=== PATIENT | male | born 2000 | race Caucasian/White ===

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

== ENCOUNTER 2019-01-09 22:40 | Emergency (ER) | payer MEDICAID ==
[~2019-01-09] VITALS: Ht 170.2 cm; Wt 113.4 kg
[~2019-01-09 22:40] MED LIST: BENZ2TAB6; DEXM30CP; DIPH25CA45; DIPH50CA30; GUAN1TAB21; ILOP12TA2; OXCA600T10; PANT20TA3; PERP8TAB6; [UNRECOGNIZED DRUG - CODE]
--- OUTSIDE RECORDS SUMMARY | 2019-01-09 22:45 | XMS REPORT ---
Author Author LIO HANSEN [facility] Address [address] [place] [address] Care Team Providers [facility] Manager Name Role Phone LIO HANSEN Unavailable PROBLEMS Type Condition ICD9-CM Code PGB16-IQ Code Onset Dates Condition Status SNOMED Code Problem Urinary incontinence, unspecified type R32 Active 682320096 Problem Chronic GERD K21.9 Active 680630161 Problem Chronic seasonal allergic rhinitis, unspecified trigger J30.2 Active 840752951 Problem Autism spectrum disorder F84.0 Active 51002889 Problem ADHD (attention deficit hyperactivity disorder), combined type F90.2 Active 02140599 Problem Borderline personality disorder F60.3 Active 53145716 Problem Bipolar disorder, in partial remission, most recent episode manic F31.73 Active 36787678 Problem Chronic idiopathic constipation K59.04 Active 60794237 Problem Other chronic pain G89.29 Active 38708026 Problem Acne vulgaris L70.0 Active 60817386 Problem Body mass index (BMI) of 32.0-32.9 in adult Z68.32 Active 192924995 Problem Psychosis, unspecified psychosis type F29 Active 88929047 Problem Other obesity due to excess calories E66.09 Active 365380689 ALLERGIES No Information ENCOUNTERS Encounter Location Date Diagnosis [facility] [id number] [address] Sep, [facility] [id number] [address] Aug, [facility] [id number] [place] [address] Jun, ADHD (attention deficit hyperactivity disorder), combined type F90.2 [facility] [id number] [address] Jun, [facility] [address] [address] May, ADHD (attention deficit hyperactivity disorder), combined type F90.2 [address] [id number] [place] [address] May, ADHD (attention deficit hyperactivity disorder), combined type F90.2 [place] [id number] [place] [address] Apr, ADHD (attention deficit hyperactivity disorder), combined type F90.2 [place] [id number] [place] [address] Apr, [place] [id number] [place] [address] Apr, Chronic idiopathic constipation K59.04 [place] [id number] [place] [address] Apr, [address] [address] Apr, [address] [id number] [id number] Apr, Dorsalgia, unspecified M54.9 and Other chronic pain G89.29 [place] [address] [place] [address] Apr, Acne vulgaris L70.0 ; Chronic constipation K59.09 ; Kyphosis of cervicothoracic region, 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 ; Pain of left foot M79.672 and Pain in right foot M79.671 [place] [address] [place] [address] Apr, ADHD (attention deficit hyperactivity disorder), combined type F90.2 ; Borderline personality disorder F60.3 ; Autism spectrum disorder F84.0 and Psychosis, unspecified psychosis type F29 [place] [address] [place] [address] Mar, ADHD (attention deficit hyperactivity disorder), combined type F90.2 [facility] [address] [address] Feb, ADHD (attention deficit hyperactivity disorder), combined type F90.2 [facility] [address] [address] Jan, ADHD (attention deficit hyperactivity disorder), combined type F90.2 ; Bipolar disorder, in partial remission, most recent episode manic F31.73 ; Borderline personality disorder F60.3 and Autism spectrum disorder F84.0 [facility] [address] [place] [address] Jan, Acne vulgaris L70.0 [facility] [id number] [place] [address] Jan, [facility] [id number] [place] [address] Dec, [facility] [address] [address] Dec, [facility] [id number] [place] [id number] Dec, Encounter for dental examination Z01.20 [facility] [address] [address] Dec, ADHD (attention deficit hyperactivity disorder), combined type F90.2 ; Bipolar disorder, in partial remission, most recent episode manic F31.73 ; Borderline personality disorder F60.3 and Autism spectrum disorder F84.0 [facility] [address] [address] November, ADHD (attention deficit hyperactivity disorder), combined type F90.2 [facility] [address] [address] November, [facility] [id number] [place] [address] November, [facility] [address] [address] November, [facility] [id number] [place] [address] Oct, Bipolar disorder, in partial remission, most recent episode manic F31.73 [facility] [id number] [place] [address] Oct, ADHD (attention deficit hyperactivity disorder), combined type F90.2 [facility] [address] [address] Oct, [facility] [id number] [place] [address] Oct, [facility] [id number] [place] [address] Oct, ADHD (attention deficit hyperactivity disorder), combined type F90.2 ; Bipolar disorder, in partial remission, most recent episode manic F31.73 ; Autism spectrum disorder F84.0 ; Borderline personality disorder F60.3 ; Chronic GERD K21.9 ; Chronic seasonal allergic rhinitis, unspecified trigger J30.2 ; Urinary incontinence, unspecified type R32 ; Acne vulgaris L70.0 ; Other obesity due to excess calories E66.09 and Body mass index (BMI) of 32.0-32.9 in adult Z68.32 [facility] [address] [address] Sep, [facility] [address] [address] Sep, Borderline personality disorder F60.3 [facility] [address] [address] Aug, Borderline personality disorder F60.3 [facility] [address] [address] Aug, [facility] [id number] [address] Jul, Borderline personality disorder F60.3 ; Autism spectrum disorder F84.0 ; Bipolar disorder, in partial remission, most recent episode manic F31.73 and ADHD (attention deficit hyperactivity disorder), combined type F90.2 [facility] [address] [id number] [address] Jul, [facility] [address] [id number] [id number] Jul, Dental examination Z01.20 [facility] [address] [id number] [place] [address] Jun, [facility] [id number] [place] [address] May, [facility] [address] [id number] May, Dental examination Z01.20 [facility] [address] [id number] [address] May, [facility] [id number] [place] [address] May, High risk medication use Z79.899 [facility] [id number] [address] May, [facility] [id number] [address] May, [facility] [id number] [address] Apr, High risk medication use Z79.899 ; Borderline personality disorder F60.3 ; Autism spectrum disorder F84.0 ; Bipolar disorder, in partial remission, most recent episode manic F31.73 and ADHD (attention deficit hyperactivity disorder), combined type F90.2 [facility] [address] [facility] [id number] [address] Apr, [facility] [id number] [address] Apr, [facility] [address] [facility] [id number] [address] Apr, Chronic GERD K21.9 ; Chronic seasonal allergic rhinitis, unspecified trigger J30.2 ; Urinary incontinence, unspecified type R32 and Encounter for immunization Z23 [place] [id number] [address] Mar, [address] [facility] [id number] [address] Mar, ADHD (attention deficit hyperactivity disorder), combined type F90.2 ; Bipolar disorder, in partial remission, most recent episode manic F31.73 ; Autism spectrum disorder F84.0 and Borderline personality disorder F60.3 IMMUNIZATIONS No Known Immunizations SOCIAL HISTORY Never Assessed REASON FOR VISIT focalin 2018 PLAN OF CARE VITAL SIGNS MEDICATIONS Medication Instructions Dosage Frequency Start Date End Date Duration Status Focalin 10 MG Orally at 10am and 3pm 1 tablet Jun, 28 days Active Focalin XR 30 MG Orally. NAME BRAND ONLY Once a day in morning 1 capsule Jun, 28 days Active Focalin 5 MG Orally at 3pm 1 tablet Jun, 28 days Active RESULTS No Results PROCEDURES No Known procedures INSTRUCTIONS MEDICATIONS ADMINISTERED No Known Medications MEDICAL (GENERAL) HISTORY Type Description Date Medical History bipolar disorder Medical History attention deficit hyperactivity disorder Medical History Autisim Medical History borderline personality disorder Medical History history of seizures, none since thao high, history of petite grand mal and focal seizures Surgical History hydroseal 1998 Surgical History PE tubes 2002 Surgical History Tonsils and adenoids 2005 Surgical History wisdom teeth 2016 Hospitalization History Multiple psych stays(states 25 times)
--- OUTSIDE RECORDS SUMMARY | 2019-01-09 22:46 | XMS REPORT ---
Author Author INDERJIT CADET Organization [facility] Address [address] [place] [address] Care Team Providers Care Public Health Teacher Name Role Phone INDERJIT CADET Unavailable PROBLEMS Type Condition ICD9-CM Code LRN10-PS Code Onset Dates Condition Status SNOMED Code Problem Urinary incontinence, unspecified type R32 Active 072751782 Problem Chronic GERD K21.9 Active 429889279 Problem Chronic seasonal allergic rhinitis, unspecified trigger J30.2 Active 109438054 Problem Autism spectrum disorder F84.0 Active 78887272 Problem ADHD (attention deficit hyperactivity disorder), combined type F90.2 Active 40667052 Problem Borderline personality disorder F60.3 Active 62138006 Problem Bipolar disorder, in partial remission, most recent episode manic F31.73 Active 16997399 Problem Chronic idiopathic constipation K59.04 Active 24139629 Problem Other chronic pain G89.29 Active 76427178 Problem Acne vulgaris L70.0 Active 02347902 Problem Body mass index (BMI) of 32.0-32.9 in adult Z68.32 Active 821044917 Problem Psychosis, unspecified psychosis type F29 Active 23890882 Problem Other obesity due to excess calories E66.09 Active 025517937 ALLERGIES No Information ENCOUNTERS Encounter Location Date Diagnosis [facility] [id number] [address] Sep, [facility] [id number] [address] Jun, [facility] [id number] [place] [address] May, ADHD (attention deficit hyperactivity disorder), combined type F90.2 [facility] [id number] [address] May, ADHD (attention deficit hyperactivity disorder), combined type F90.2 [facility] [address] [address] Apr, ADHD (attention deficit hyperactivity disorder), combined type F90.2 [facility] [address] [address] Apr, [facility] [address] [address] Apr, Chronic idiopathic constipation K59.04 [facility] [address] [address] Apr, [facility] [address] [address] Apr, [address] [id number] [id number] Apr, Dorsalgia, unspecified M54.9 and Other chronic pain G89.29 [facility] [address], [place] [address] Apr, Acne vulgaris L70.0 ; Chronic constipation K59.09 ; Kyphosis of cervicothoracic region, 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 ; Pain of left foot M79.672 and Pain in right foot M79.671 [facility] [address] [address] Apr, ADHD (attention deficit hyperactivity disorder), combined type F90.2 ; Borderline personality disorder F60.3 ; Autism spectrum disorder F84.0 and Psychosis, unspecified psychosis type F29 [facility] [id number] [address] Mar, ADHD (attention deficit hyperactivity disorder), combined type F90.2 [facility] [address], [place] [address] Feb, ADHD (attention deficit hyperactivity disorder), combined type F90.2 [place] [address] [address] Jan, ADHD (attention deficit hyperactivity disorder), combined type F90.2 ; Bipolar disorder, in partial remission, most recent episode manic F31.73 ; Borderline personality disorder F60.3 and Autism spectrum disorder F84.0 [facility] [address], [place] [address] Jan, Acne vulgaris L70.0 [facility] [id number] [place] [address] Jan, [facility] [id number] [place] [address] Dec, [facility] [id number] [place] [address] Dec, [facility] [address] [place] [id number] Dec, Encounter for dental examination Z01.20 [facility] [address] [place] [address] Dec, ADHD (attention deficit hyperactivity disorder), combined type F90.2 ; Bipolar disorder, in partial remission, most recent episode manic F31.73 ; Borderline personality disorder F60.3 and Autism spectrum disorder F84.0 [facility] [address], [place] [address] November, ADHD (attention deficit hyperactivity disorder), combined type F90.2 [facility] [address] [address] November, [facility] [id number] [address] November, [facility] [id number] [place] [address] November, [facility] [address], [place] [address] Oct, Bipolar disorder, in partial remission, most recent episode manic F31.73 [facility] [address], [place] [address] Oct, ADHD (attention deficit hyperactivity disorder), combined type F90.2 [facility] [address], [place] [address] Oct, [facility] [address], [place] [address] Oct, [facility] [id number] [place] [address] Oct, ADHD (attention deficit hyperactivity disorder), combined [...] index (BMI) of 32.0-32.9 in adult Z68.32 [place], [place] [address] Sep, [place] [id number] [place] [address] Sep, Borderline personality disorder F60.3 [facility] [address], [place] [address] Aug, Borderline personality disorder F60.3 [facility] [address], [place] [address] Aug, [facility] [address] [place] [address] Jul, Borderline personality disorder F60.3 ; Autism spectrum disorder F84.0 ; Bipolar disorder, in partial remission, most recent episode manic F31.73 and ADHD (attention deficit hyperactivity disorder), combined type F90.2 [facility] [address] [place] [address] Jul, [facility] [address] [address] Jul, Dental examination Z01.20 [facility] [address] [address] Jun, [facility] [address], [place] [address] May, [facility] [address] [place] [id number] May, Dental examination Z01.20 [facility] [id number] [place] [address] May, [facility] [id number] [place] [address] May, High risk medication use Z79.899 [facility] [id number] [place] [address] May, [facility] [address], [place] [address] May, [facility] [address] [place] [address] Apr, High risk medication use Z79.899 ; Borderline personality disorder F60.3 ; Autism spectrum disorder F84.0 ; Bipolar disorder, in partial remission, most recent episode manic F31.73 and ADHD (attention deficit hyperactivity disorder), combined type F90.2 [facility] [address] [address] Apr, [facility] [id number] [place] [address] Apr, [facility] [address], [place] [address] Apr, Chronic GERD K21.9 ; Chronic seasonal allergic rhinitis, unspecified trigger J30.2 ; Urinary incontinence, unspecified type R32 and Encounter for immunization Z23 [facility] [address] [facility] [id number] [address] Mar, [facility] [address] [facility] [id number] [place] [address] Mar, ADHD (attention deficit hyperactivity disorder), combined type F90.2 ; Bipolar disorder, in partial remission, most recent episode manic F31.73 ; Autism spectrum disorder F84.0 and Borderline personality disorder F60.3 IMMUNIZATIONS No Known Immunizations SOCIAL HISTORY Never Assessed REASON FOR VISIT Requests return call PLAN OF CARE VITAL SIGNS MEDICATIONS Unknown Medications RESULTS No Results PROCEDURES No Known procedures [...] tubes 2002 Surgical History Tonsils and adenoids 2004 Surgical History wisdom teeth 2016 Hospitalization History Multiple psych stays(states 25 times)
--- OUTSIDE RECORDS SUMMARY | 2019-01-09 22:46 | XMS REPORT ---
Author Author INDERJIT CADET Organization [facility] Address [address] [place] [address] Care Team Providers Care Tourist Cabin Keeper Name Role Phone CADETINDERJIT Unavailable PROBLEMS Type Condition ICD9-CM Code RBL38-RG Code Onset Dates Condition Status SNOMED Code Problem Urinary incontinence, unspecified type R32 Active 144307956 Problem Chronic GERD K21.9 Active 574024730 Problem Chronic seasonal allergic rhinitis, unspecified trigger J30.2 Active 234365742 Problem Autism spectrum disorder F84.0 Active 83991337 Problem ADHD (attention deficit hyperactivity disorder), combined type F90.2 Active 91793690 Problem Borderline personality disorder F60.3 Active 98753289 Problem Bipolar disorder, in partial remission, most recent episode manic F31.73 Active 62243859 Problem Chronic idiopathic constipation K59.04 Active 74906571 Problem Other chronic pain G89.29 Active 96927680 Problem Acne vulgaris L70.0 Active 36396294 Problem Body mass index (BMI) of 32.0-32.9 in adult Z68.32 Active 806070493 Problem Psychosis, unspecified psychosis type F29 Active 50311716 Problem Other obesity due to excess calories E66.09 Active 007708833 ALLERGIES No Information ENCOUNTERS Encounter Location Date Diagnosis [facility] [id number], [place] [address] Jul, [facility] [id number], [place] [address] Jun, [facility] [id number] [id number] Jun, [facility] [id number], [place] [address] May, ADHD (attention deficit hyperactivity disorder), combined type F90.2 [facility] [address], [place] [address] Apr, ADHD (attention deficit hyperactivity disorder), combined type F90.2 [facility] [address], [place] [address] Apr, [facility] [address], [place] [address] Apr, Chronic idiopathic constipation K59.04 [facility] [address], [place] [address] Apr, [facility] [address], [place] [address] Apr, [address] [id number] [id number] Apr, Dorsalgia, unspecified M54.9 and Other chronic pain G89.29 [place] [address], [place] [address] Apr, Acne vulgaris L70.0 ; Chronic constipation K59.09 ; Kyphosis of cervicothoracic region, 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 ; Pain of left foot M79.672 and Pain in right foot M79.671 [place] [address], [place] [address] Apr, ADHD (attention deficit hyperactivity disorder), combined type F90.2 ; Borderline personality disorder F60.3 ; Autism spectrum disorder F84.0 and Psychosis, unspecified psychosis type F29 [facility] [id number], [place] [address] Mar, ADHD (attention deficit hyperactivity disorder), combined type F90.2 [place] [address], [place] [address] Feb, ADHD (attention deficit hyperactivity disorder), combined type F90.2 [place] [address], [place] [address] Jan, ADHD (attention deficit hyperactivity disorder), combined type F90.2 ; Bipolar disorder, in partial remission, most recent episode manic F31.73 ; Borderline personality disorder F60.3 and Autism spectrum disorder F84.0 [facility] [address] [place] [address] Jan, Acne vulgaris L70.0 [facility] [id number] [place] [address] Jan, [facility] [id number] [place] [address] Dec, [facility] [id number] [place] [address] Dec, [facility] [address] [place] [phone] Dec, Encounter for dental examination Z01.20 [facility] [id number] [place] [address] Dec, ADHD (attention deficit hyperactivity disorder), combined type F90.2 ; Bipolar disorder, in partial remission, most recent episode manic F31.73 ; Borderline personality disorder F60.3 and Autism spectrum disorder F84.0 [facility] [id number] [place] [address] November, ADHD (attention deficit hyperactivity disorder), combined type F90.2 [facility] [address], [place] [address] November, [facility] [id number] [place] [address] November, [facility] [address] [place] [address] November, [facility] [address] [place] [address] Oct, Bipolar disorder, in partial remission, most recent episode manic F31.73 [facility] [id number], [place] [address] Oct, ADHD (attention deficit hyperactivity disorder), combined type F90.2 [facility] [address] [place] [address] Oct, [facility] [id number] [place] [address] Oct, [facility] [id number] [place] [address] Oct, ADHD (attention deficit hyperactivity disorder), combined [...] index (BMI) of 32.0-32.9 in adult Z68.32 [facility] [address] [place] [address] Sep, [facility] [id number] [place] [address] Sep, Borderline personality disorder F60.3 [facility] [address], [place] [address] Aug, Borderline personality disorder F60.3 [facility] [id number] [place] [address] Aug, [facility] [address] [place] [address] Jul, Borderline personality disorder F60.3 ; Autism spectrum disorder F84.0 ; Bipolar disorder, in partial remission, most recent episode manic F31.73 and ADHD (attention deficit hyperactivity disorder), combined type F90.2 [facility] [address] [place] [address] Jul, [place] [id number] [id number] Jul, Dental examination Z01.20 [facility] [id number] [place] [address] Jun, [facility] [address], [place] [address] May, [facility] [address] [place] [phone] May, Dental examination Z01.20 [facility] [address] [place] [address] May, [facility] [id number] [place] [address] May, High risk medication use Z79.899 [facility] [id number] [place] [address] May, [facility] [address], [place] [address] May, [facility] [address] [place] [address] Apr, High risk medication use Z79.899 ; Borderline personality disorder F60.3 ; Autism spectrum disorder F84.0 ; Bipolar disorder, in partial remission, most recent episode manic F31.73 and ADHD (attention deficit hyperactivity disorder), combined type F90.2 [facility] [address], [place] [address] Apr, [facility] [id number] [place] [address] Apr, [facility] [id number] [place] [address] Apr, Chronic GERD K21.9 ; Chronic seasonal allergic rhinitis, unspecified trigger J30.2 ; Urinary incontinence, unspecified type R32 and Encounter for immunization Z23 [facility] [address] [address] Mar, [facility] [address] [facility] [id number] [place] [address] Mar, ADHD (attention deficit hyperactivity disorder), combined type F90.2 ; Bipolar disorder, in partial remission, most recent episode manic F31.73 ; Autism spectrum disorder F84.0 and Borderline personality disorder F60.3 IMMUNIZATIONS No Known Immunizations SOCIAL HISTORY Never Assessed REASON FOR VISIT Prior Auth. PLAN OF CARE VITAL SIGNS MEDICATIONS Medication Instructions Dosage Frequency Start Date End Date Duration Status Linzess 72 MCG Orally Once a day 1 capsule on an empty stomach 24h Apr, 30 day(s) Active RESULTS No Results PROCEDURES No Known [...]
--- OUTSIDE RECORDS SUMMARY | 2019-01-09 22:46 | XMS REPORT ---
Author Author HELENADELMISYUE [facility] [address] [place] Address [address] [place] [address] Care Team Providers Care Belt And Link Shop Supervisor Name Role Phone TESSA MALIK Unavailable PROBLEMS Type Condition ICD9-CM Code AZO57-IW Code Onset Dates Condition Status SNOMED Code Problem Urinary incontinence, unspecified type R32 Active 522752954 Problem Chronic GERD K21.9 Active 197258938 Problem Chronic seasonal allergic rhinitis, unspecified trigger J30.2 Active 120788788 Problem Autism spectrum disorder F84.0 Active 06658834 Problem ADHD (attention deficit hyperactivity disorder), combined type F90.2 Active 68121384 Problem Borderline personality disorder F60.3 Active 66081141 Problem Bipolar disorder, in partial remission, most recent episode manic F31.73 Active 72546726 Problem Chronic idiopathic constipation K59.04 Active 66626306 Problem Other chronic pain G89.29 Active 80125019 Problem Acne vulgaris L70.0 Active 96008225 Problem Body mass index (BMI) of 32.0-32.9 in adult Z68.32 Active 035090339 Problem Psychosis, unspecified psychosis type F29 Active 58586844 Problem Other obesity due to excess calories E66.09 Active 810493300 ALLERGIES No Information ENCOUNTERS Encounter Location Date Diagnosis [facility], [place] [id number] [place] [address] Jul, [facility], [place] [address], [place] [address] Jun, [facility] [id number] [place] [id number] Jun, [facility] [place] [address] [place] [address] May, ADHD (attention deficit hyperactivity disorder), combined type F90.2 [facility], [place] [id number] [address] Apr, ADHD (attention deficit hyperactivity disorder), combined type F90.2 [facility], [place] [address] [address] Apr, [facility], [place] [address], [place] [address] Apr, Chronic idiopathic constipation K59.04 [facility], [place] [address], [place] [address] Apr, [facility], [place] [address] [place] [address] Apr, [id number] [id number] Apr, Dorsalgia, unspecified M54.9 and Other chronic pain G89.29 [place] [address] [address] Apr, Acne vulgaris L70.0 ; Chronic constipation K59.09 ; Kyphosis of cervicothoracic region, 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 ; Pain of left foot M79.672 and Pain in right foot M79.671 [place] [address], [place] [address] Apr, ADHD (attention deficit hyperactivity disorder), combined type F90.2 ; Borderline personality disorder F60.3 ; Autism spectrum disorder F84.0 and Psychosis, unspecified psychosis type F29 [facility], [place] [id number], [place] [address] Mar, ADHD (attention deficit hyperactivity disorder), combined type F90.2 [place] [address] [place] [address] Feb, ADHD (attention deficit hyperactivity disorder), combined type F90.2 [place] [address] [address] Jan, ADHD (attention deficit hyperactivity disorder), combined type F90.2 ; Bipolar disorder, in partial remission, most recent episode manic F31.73 ; Borderline personality disorder F60.3 and Autism spectrum disorder F84.0 [facility], [place] [address] [address] Jan, Acne vulgaris L70.0 [facility], [place] [id number] [place] [address] Jan, [facility], [place] [id number] [place] [address] Dec, [facility], [place] [id number] [place] [address] Dec, [facility] [id number] [place] [id number] Dec, Encounter for dental examination Z01.20 [facility], [place] [id number] [place] [address] Dec, ADHD (attention deficit hyperactivity disorder), combined type F90.2 ; Bipolar disorder, in partial remission, most recent episode manic F31.73 ; Borderline personality disorder F60.3 and Autism spectrum disorder F84.0 [facility], [place] [address], [place] [address] November, ADHD (attention deficit hyperactivity disorder), combined type F90.2 [facility], [place] [address], [place] [address] November, [facility], [place] [address] [place] [address] November, [facility], [place] [id number] [place] [address] November, [facility], [place] [address], [place] [address] Oct, Bipolar disorder, in partial remission, most recent episode manic F31.73 [facility], [place] [id number] [address] Oct, ADHD (attention deficit hyperactivity disorder), combined type F90.2 [facility], [place] [address], [place] [address] Oct, [facility], [place] [address], [place] [address] Oct, [facility], [place] [id number] [place] [address] Oct, ADHD (attention deficit hyperactivity disorder), combined [...] index (BMI) of 32.0-32.9 in adult Z68.32 [place] [address], [place] [address] Sep, [place] [id number] [place] [address] Sep, Borderline personality disorder F60.3 [place] [address], [place] [address] Aug, Borderline personality disorder F60.3 [place] [address], [place] [address] Aug, [facility], [place] [address], [place] [address] Jul, Borderline personality disorder F60.3 ; Autism spectrum disorder F84.0 ; Bipolar disorder, in partial remission, most recent episode manic F31.73 and ADHD (attention deficit hyperactivity disorder), combined type F90.2 [facility] [place] [address], [place] [address] Jul, [facility] [address] [id number] Jul, Dental examination Z01.20 [facility], [place] [id number] [place] [address] Jun, [facility], [place] [id number] [place] [address] May, [facility] [id number] [place] [phone] May, Dental examination Z01.20 [facility], [place] [id number] [place] [address] May, [facility], [place] [id number] [place] [address] May, High risk medication use Z79.899 [facility], [place] [id number] [place] [address] May, [facility], [place] [address] [place] [address] May, [facility], [place] [id number] [place] [address] Apr, High risk medication use Z79.899 ; Borderline personality disorder F60.3 ; Autism spectrum disorder F84.0 ; Bipolar disorder, in partial remission, most recent episode manic F31.73 and ADHD (attention deficit hyperactivity disorder), combined type F90.2 [facility], [place] [address], [place] [address] Apr, [facility], [place] [id number] [place] [address] Apr, [facility], [place] [id number] [place] [address] Apr, Chronic GERD K21.9 ; Chronic seasonal allergic rhinitis, unspecified trigger J30.2 ; Urinary incontinence, unspecified type R32 and Encounter for immunization Z23 [facility], [place] [address] [facility] [id number] [address] Mar, [facility] [address] [facility] [id number] [address] Mar, ADHD (attention deficit hyperactivity disorder), combined type F90.2 ; Bipolar disorder, in partial remission, most recent episode manic F31.73 ; Autism spectrum disorder F84.0 and Borderline personality disorder F60.3 IMMUNIZATIONS No Known Immunizations SOCIAL HISTORY Never Assessed REASON FOR VISIT PA-Focalin 30,10,5 PLAN OF CARE VITAL SIGNS MEDICATIONS Medication Instructions Dosage Frequency Start Date End Date Duration Status Focalin 5 MG Orally at 3pm 1 tablet May, 28 days Active RESULTS No Results PROCEDURES [...]
--- OUTSIDE RECORDS SUMMARY | 2019-01-09 22:46 | XMS REPORT ---
Author Author MANSOORLIO [facility] Address [address] [place] [address] Care Team Providers Care Engraver Apprentice Decorative Name Role Phone LIO MAX Unavailable PROBLEMS Type Condition ICD9-CM Code JTR19-NE Code Onset Dates Condition Status SNOMED Code Problem Urinary incontinence, unspecified type R32 Active 486995303 Problem Chronic GERD K21.9 Active 554514968 Problem Chronic seasonal allergic rhinitis, unspecified trigger J30.2 Active 119621607 Problem Autism spectrum disorder F84.0 Active 13797528 Problem ADHD (attention deficit hyperactivity disorder), combined type F90.2 Active 93910680 Problem Borderline personality disorder F60.3 Active 19538075 Problem Bipolar disorder, in partial remission, most recent episode manic F31.73 Active 30250121 Problem Chronic idiopathic constipation K59.04 Active 41631860 Problem Other chronic pain G89.29 Active 12384790 Problem Acne vulgaris L70.0 Active 91359599 Problem Body mass index (BMI) of 32.0-32.9 in adult Z68.32 Active 558380594 Problem Psychosis, unspecified psychosis type F29 Active 75906973 Problem Other obesity due to excess calories E66.09 Active 405542855 ALLERGIES No Information ENCOUNTERS Encounter Location Date Diagnosis [facility] [address] [place] [address] Jul, [facility] [id number] [address] Jun, [facility] [address] [place] [phone] Jun, [facility] [address] [place] [address] May, ADHD (attention deficit hyperactivity disorder), combined type F90.2 [facility] [address] [address] May, ADHD (attention deficit hyperactivity disorder), combined type F90.2 [place] [address] [place] [address] Apr, ADHD (attention deficit hyperactivity disorder), combined type F90.2 [place] [address] [place] [address] Apr, [place] [id number] [place] [address] Apr, Chronic idiopathic constipation K59.04 [place] [id number] [place] [address] Apr, [place] [address] [place] [address] Apr, [id number] [id number] Apr, Dorsalgia, unspecified M54.9 and Other chronic pain G89.29 [place] [address] [place] [address] Apr, Acne vulgaris L70.0 ; Chronic constipation K59.09 ; Kyphosis of cervicothoracic region, 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 ; Pain of left foot M79.672 and Pain in right foot M79.671 [place] [address] [place] [address] Apr, ADHD (attention deficit hyperactivity disorder), combined type F90.2 ; Borderline personality disorder F60.3 ; Autism spectrum disorder F84.0 and Psychosis, unspecified psychosis type F29 [place] [address] [place] [address] Mar, ADHD (attention deficit hyperactivity disorder), combined type F90.2 [place] [address] [place] [address] Feb, ADHD (attention deficit hyperactivity disorder), combined type F90.2 [facility] [address] [address] Jan, ADHD (attention deficit hyperactivity disorder), combined type F90.2 ; Bipolar disorder, in partial remission, most recent episode manic F31.73 ; Borderline personality disorder F60.3 and Autism spectrum disorder F84.0 [facility] [id number] [place] [address] Jan, Acne vulgaris L70.0 [facility] [id number] [place] [address] Jan, [facility] [id number] [place] [address] Dec, [facility] [id number] [place] [address] Dec, [facility] [id number] [place] [phone] Dec, Encounter for dental examination Z01.20 [facility] [id number] [place] [address] Dec, ADHD (attention deficit hyperactivity disorder), combined type F90.2 ; Bipolar disorder, in partial remission, most recent episode manic F31.73 ; Borderline personality disorder F60.3 and Autism spectrum disorder F84.0 [facility] [id number] [place] [address] November, ADHD (attention deficit hyperactivity disorder), combined type F90.2 [facility] [address] [address] November, [facility] [id number] [place] [address] November, [facility] [address] [address] November, [facility] [id number] [address] Oct, Bipolar disorder, in partial remission, most recent episode manic F31.73 [place] [id number] [place] [address] Oct, ADHD (attention deficit hyperactivity disorder), combined type F90.2 [place] [address] [place] [address] Oct, [place] [id number] [place] [address] Oct, [place] [address] [place] [address] Oct, ADHD (attention deficit hyperactivity disorder), combined [...] index (BMI) of 32.0-32.9 in adult Z68.32 [place] [address] [place] [address] Sep, [place] [address] [address] Sep, Borderline personality disorder F60.3 [place] [address] [address] Aug, Borderline personality disorder F60.3 [place] [address] [place] [address] Aug, [place] [address] [place] [address] Jul, Borderline personality disorder F60.3 ; Autism spectrum disorder F84.0 ; Bipolar disorder, in partial remission, most recent episode manic F31.73 and ADHD (attention deficit hyperactivity disorder), combined type F90.2 [facility] [address] [id number] [address] Jul, [facility] [address] [place] [phone] Jul, Dental examination Z01.20 [facility] [id number] [place] [address] Jun, [facility] [id number] [place] [address] May, [facility] [id number] [place] [phone] May, Dental examination Z01.20 [facility] [id number] [place] [address] May, [facility] [id number] [place] [address] May, High risk medication use Z79.899 [facility] [id number] [address] May, [facility] [id number] [place] [address] May, [facility] [address] [address] Apr, High risk medication use Z79.899 ; Borderline personality disorder F60.3 ; Autism spectrum disorder F84.0 ; Bipolar disorder, in partial remission, most recent episode manic F31.73 and ADHD (attention deficit hyperactivity disorder), combined type F90.2 [facility] [id number] [place] [address] Apr, [facility] [id number] [address] Apr, [facility] [address] [place] [address] Apr, Chronic GERD K21.9 ; Chronic seasonal allergic rhinitis, unspecified trigger J30.2 ; Urinary incontinence, unspecified type R32 and Encounter for immunization Z23 [facility] [address] [facility] [id number] [place] [address] Mar, [facility] [address] [facility] [id number] [place] [address] Mar, ADHD (attention deficit hyperactivity disorder), combined type F90.2 ; Bipolar disorder, in partial remission, most recent episode manic F31.73 ; Autism spectrum disorder F84.0 and Borderline personality disorder F60.3 IMMUNIZATIONS No Known Immunizations SOCIAL HISTORY Never Assessed REASON FOR VISIT focalin 06/11/2018 PLAN OF CARE VITAL SIGNS MEDICATIONS Medication Instructions Dosage Frequency Start Date End Date Duration Status Focalin XR 30 MG Orally. NAME BRAND ONLY Once a day in morning 1 capsule May, 28 days Active Focalin 5 MG Orally at 3pm 1 tablet May, 28 days Active Focalin 10 MG Orally at 10am and 3pm 1 tablet May, 28 days Active [...] and adenoids 2004 Surgical History wisdom teeth 2015 Hospitalization History Multiple psych stays(states 25 times)
--- OUTSIDE RECORDS SUMMARY | 2019-01-09 22:46 | XMS REPORT ---
Author Author HELENA DELMISYUE [facility] [address] [place] Address [address] [place] [address] Care Team Providers Care Jewelry Enameler Name Role Phone TESSA MALIK Unavailable PROBLEMS Type Condition ICD9-CM Code [id number] Code Onset Dates Condition Status SNOMED Code Problem Urinary incontinence, unspecified type R32 Active 349601168 Problem Chronic GERD K21.9 Active 609865818 Problem Chronic seasonal allergic rhinitis, unspecified trigger J30.2 Active 421192446 Problem Autism spectrum disorder F84.0 Active 10856197 Problem ADHD (attention deficit hyperactivity disorder), combined type F90.2 Active 98995722 Problem Borderline personality disorder F60.3 Active 95255626 Problem Bipolar disorder, in partial remission, most recent episode manic F31.73 Active 03190669 Problem Chronic idiopathic constipation K59.04 Active 87198114 Problem Other chronic pain G89.29 Active 98303351 Problem Acne vulgaris L70.0 Active 06960472 Problem Body mass index (BMI) of 32.0-32.9 in adult Z68.32 Active 990767387 Problem Psychosis, unspecified psychosis type F29 Active 01625444 Problem Other obesity due to excess calories E66.09 Active 378344791 ALLERGIES No Information ENCOUNTERS Encounter Location Date Diagnosis [facility] [id number] [place] [address] Jul, [facility] [address] [place] [address] Jun, [facility] [address] [place] [id number] Jun, [facility] [address] [place] [address] May, [facility] [id number] [place] [address] Apr, ADHD (attention deficit hyperactivity disorder), combined type F90.2 [facility] [address] [address] Apr, [facility] [address] [address] Apr, Chronic idiopathic constipation K59.04 [facility] [address] [place] [address] Apr, [facility] [address] [place] [address] Apr, [address] [id number] [id number] Apr, Dorsalgia, unspecified M54.9 and Other chronic pain G89.29 [place] [address] [place] [address] Apr, Acne vulgaris L70.0 ; Chronic constipation K59.09 ; Kyphosis of cervicothoracic region, 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 ; Pain of left foot M79.672 and Pain in right foot M79.671 [place] [address] [place] [address] Apr, ADHD (attention deficit hyperactivity disorder), combined type F90.2 ; Borderline personality disorder F60.3 ; Autism spectrum disorder F84.0 and Psychosis, unspecified psychosis type F29 [facility] [address] [address] Mar, ADHD (attention deficit hyperactivity disorder), combined type F90.2 [facility] [address] [place] [address] Feb, ADHD (attention deficit hyperactivity disorder), combined type F90.2 [facility] [address] [address] Jan, ADHD (attention deficit hyperactivity disorder), combined type F90.2 ; Bipolar disorder, in partial remission, most recent episode manic F31.73 ; Borderline personality disorder F60.3 and Autism spectrum disorder F84.0 [facility] [address] [address] Jan, Acne vulgaris L70.0 [facility] [address] [address] Jan, [facility] [id number] [place] [address] Dec, [facility] [address] [address] Dec, [facility] [address] [place] [phone] Dec, Encounter for dental examination Z01.20 [facility] [address] [place] [address] Dec, ADHD (attention deficit hyperactivity disorder), combined type F90.2 ; Bipolar disorder, in partial remission, most recent episode manic F31.73 ; Borderline personality disorder F60.3 and Autism spectrum disorder F84.0 [facility] [address] [place] [address] November, ADHD (attention deficit hyperactivity disorder), combined type F90.2 [facility] [address] [address] November, [facility] [address] [address] November, [facility] [address] [address] November, [facility] [address] [place] [address] Oct, Bipolar disorder, in partial remission, most recent episode manic F31.73 [facility] [address] [place] [address] Oct, ADHD (attention deficit hyperactivity disorder), combined type F90.2 [facility] [address] [address] Oct, [facility] [address] [address] Oct, [facility] [address] [address] Oct, ADHD (attention deficit hyperactivity disorder), combined [...] index (BMI) of 32.0-32.9 in adult Z68.32 [facility] [address] [address] Sep, [facility] [address], [place] [address] Sep, Borderline personality disorder F60.3 [facility] [address] [address] Aug, Borderline personality disorder F60.3 [facility] [address], [place] [address] Aug, [facility] [address], [place] [address] Jul, Borderline personality disorder F60.3 ; Autism spectrum disorder F84.0 ; Bipolar disorder, in partial remission, most recent episode manic F31.73 and ADHD (attention deficit hyperactivity disorder), combined type F90.2 [facility] [id number] [address] Jul, [facility] [address] [place] [id number] Jul, Dental examination Z01.20 [facility] [id number] [place] [address] Jun, [facility] [id number] [place] [address] May, [facility] [id number] [place] [phone] May, Dental examination Z01.20 [facility] [id number] [place] [address] May, [facility] [id number] [place] [address] May, High risk medication use Z79.899 [place] [id number] [place] [address] May, [facility] [id number] [place] [address] May, [facility] [id number] [place] [address] Apr, High risk medication use Z79.899 ; Borderline personality disorder F60.3 ; Autism spectrum disorder F84.0 ; Bipolar disorder, in partial remission, most recent episode manic F31.73 and ADHD (attention deficit hyperactivity disorder), combined type F90.2 [facility] [address] [place] [address] Apr, [facility] [id number] [place] [address] Apr, [facility] [id number] [place] [address] Apr, Chronic GERD K21.9 ; Chronic seasonal allergic rhinitis, unspecified trigger J30.2 ; Urinary incontinence, unspecified type R32 and Encounter for immunization Z23 [facility] [id number] [place] [address] Mar, [facility] [address] [facility] [id number] [place] [address] Mar, ADHD (attention deficit hyperactivity disorder), combined type F90.2 ; Bipolar disorder, in partial remission, most recent episode manic F31.73 ; Autism spectrum disorder F84.0 and Borderline personality disorder F60.3 IMMUNIZATIONS No Known Immunizations SOCIAL HISTORY Never Assessed REASON FOR VISIT focalin 05/14/2018 PLAN OF CARE VITAL SIGNS MEDICATIONS Medication Instructions Dosage Frequency Start Date End Date Duration Status Focalin 10 MG Orally at 10am and 3pm 1 tablet May, 28 days Active Focalin XR 30 MG Orally. NAME BRAND ONLY Once a day in morning 1 capsule May, 28 days Active RESULTS No Results [...]
--- OUTSIDE RECORDS SUMMARY | 2019-01-09 22:47 | XMS REPORT ---
Author Author INDERJIT CADET Organization [facility] Address [address] [place] [address] Care Team Providers Care Asbestos Removal Supervisor Name Role Phone INDERJIT CADET Unavailable PROBLEMS Type Condition ICD9-CM Code LNK59-UN Code Onset Dates Condition Status SNOMED Code Problem Bipolar disorder, in partial remission, most recent episode manic F31.73 Active 69199935 Problem Urinary incontinence, unspecified type R32 Active 569116804 Problem Chronic seasonal allergic rhinitis, unspecified trigger J30.2 Active 588568085 Problem Autism spectrum disorder F84.0 Active 62767916 Problem ADHD (attention deficit hyperactivity disorder), combined type F90.2 Active 70592571 Problem Borderline personality disorder F60.3 Active 97039661 Problem Other chronic pain G89.29 Active 67792062 Problem Psychosis, unspecified psychosis type F29 Active 09406077 Problem Body mass index (BMI) of 32.0-32.9 in adult Z68.32 Active 737089652 Problem Chronic GERD K21.9 Active 735267994 Problem Other obesity due to excess calories E66.09 Active 325879590 Problem Acne vulgaris L70.0 Active 55008933 ALLERGIES No Information ENCOUNTERS Encounter Location Date Diagnosis [facility] [address] [place] [address] Jul, [facility] [id number] [place] [address] Jun, [facility] [address] [place] [phone] Jun, [facility] [id number] [place] [address] Apr, [facility] [address] [place] [address] Apr, [facility] [place] [address] [id number] [id number] Apr, Dorsalgia, unspecified M54.9 and Other chronic pain G89.29 [facility] [address], [place] [address] Apr, Acne vulgaris L70.0 ; Chronic constipation K59.09 ; Kyphosis of cervicothoracic region, 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 ; Pain of left foot M79.672 and Pain in right foot M79.671 [facility] [address], [place] [address] Apr, ADHD (attention deficit hyperactivity disorder), combined type F90.2 ; Borderline personality disorder F60.3 ; Autism spectrum disorder F84.0 and Psychosis, unspecified psychosis type F29 [facility] [address], [place] [address] Mar, ADHD (attention deficit hyperactivity disorder), combined type F90.2 [facility] [address], [place] [address] Feb, ADHD (attention deficit hyperactivity disorder), combined type F90.2 [place] [address] [place] [address] Jan, ADHD (attention deficit hyperactivity disorder), combined type F90.2 ; Bipolar disorder, in partial remission, most recent episode manic F31.73 ; Borderline personality disorder F60.3 and Autism spectrum disorder F84.0 [facility] [address], [place] [address] Jan, Acne vulgaris L70.0 [facility] [address] [place] [id number] [place] [address] Jan, [facility] [address], [place] [address] Dec, [place] [address] [place] [address] [id number] [place] [address] Dec, [facility] [id number] [id number] 11 Dec, 2017 Encounter for dental examination Z01.20 [facility] [address], [place] [address] 04 Dec, 2017 ADHD (attention deficit hyperactivity disorder), combined type F90.2 ; Bipolar disorder, in partial remission, most recent episode manic F31.73 ; Borderline personality disorder F60.3 and Autism spectrum disorder F84.0 [facility] [address], [place] [address] November, ADHD (attention deficit hyperactivity disorder), combined type F90.2 [facility] [address], [place] [address] November, [facility] [id number] [address] November, [facility] [address], [place] [address] November, [facility] [address] [place] [address] Oct, Bipolar disorder, in partial remission, most recent episode manic F31.73 [facility] [address], [place] [address] Oct, ADHD (attention deficit hyperactivity disorder), combined type F90.2 [facility] [address], [place] [address] Oct, [facility] [address], [place] [address] Oct, [facility] [address], [place] [address] Oct, ADHD (attention deficit hyperactivity disorder), combined [...] index (BMI) of 32.0-32.9 in adult Z68.32 [facility] [address], [place] [address] Sep, [facility] [address] [place] [address] [id number] [place] [address] Sep, Borderline personality disorder F60.3 [facility] [address] [place] [id number] [place] [address] Aug, Borderline personality disorder F60.3 [facility] [address] [place] [id number] [place] [address] Aug, [facility] [id number] [place] [address] Jul, Borderline personality disorder F60.3 ; Autism spectrum disorder F84.0 ; Bipolar disorder, in partial remission, most recent episode manic F31.73 and ADHD (attention deficit hyperactivity disorder), combined type F90.2 [facility] [address] [place] [address] Jul, [facility] [address] [id number] Jul, Dental examination Z01.20 [facility] [address] [place] [address] Jun, [facility] [address] [place] [address] May, [facility] [address] [place] [id number] May, Dental examination Z01.20 [facility] [address], [place] [address] May, [facility] [address], [place] [address] May, High risk medication use Z79.899 [place] [address] [place] [id number] [place] [address] May, [place] [address] [place] [id number] [place] [address] May, [place] [address] [place] [id number] [place] [address] Apr, High risk medication use Z79.899 ; Borderline personality disorder F60.3 ; Autism spectrum disorder F84.0 ; Bipolar disorder, in partial remission, most recent episode manic F31.73 and ADHD (attention deficit hyperactivity disorder), combined type F90.2 [place] [address] [place] [id number] [place] [address] Apr, [place] [address] [place] [id number] [place] [address] Apr, [place] [address] [place] [id number] [place] [address] Apr, Chronic GERD K21.9 ; Chronic seasonal allergic rhinitis, unspecified trigger J30.2 ; Urinary incontinence, unspecified type R32 and Encounter for immunization Z23 [place] [address] [place] [address] Mar, [place] [address] [place] [id number] [place] [address] Mar, ADHD (attention deficit hyperactivity disorder), combined type F90.2 ; Bipolar disorder, in partial remission, most recent episode manic F31.73 ; Autism spectrum disorder F84.0 and Borderline personality disorder F60.3 IMMUNIZATIONS No Known Immunizations SOCIAL HISTORY Never Assessed REASON FOR VISIT Appointment PLAN OF CARE VITAL SIGNS MEDICATIONS Unknown [...] History hydroseal 1998 Surgical History PE tubes 2003 Surgical History Tonsils and adenoids 2005 Surgical History wisdom teeth 2016 Hospitalization History Multiple psych stays(states 25 times)
--- OUTSIDE RECORDS SUMMARY | 2019-01-09 22:47 | XMS REPORT ---
Author Author MANSOOR LIO [facility] Address [address] [place] [address] Care Team Providers Care Councilman Name Role Phone FREDRICKMART JAYA Unavailable PROBLEMS Type Condition ICD9-CM Code [id number] Code Onset Dates Condition Status SNOMED Code Problem Bipolar disorder, in partial remission, most recent episode manic F31.73 Active 15692269 Problem ADHD (attention deficit hyperactivity disorder), combined type F90.2 Active 80830653 Problem Autism spectrum disorder F84.0 Active 94609146 Problem Borderline personality disorder F60.3 Active 26183292 Problem Other obesity due to excess calories E66.09 Active 925359282 Problem Acne vulgaris L70.0 Active 59255700 Problem Urinary incontinence, unspecified type R32 Active 338177555 Problem Chronic seasonal allergic rhinitis, unspecified trigger J30.2 Active 183023491 Problem Body mass index (BMI) of 32.0-32.9 in adult Z68.32 Active 689211229 Problem Chronic GERD K21.9 Active 439430859 ALLERGIES No Information ENCOUNTERS Encounter Location Date Diagnosis [facility] [id number] [id number] Jun, [facility] [id number] [place] [address] Apr, [facility] [id number] [place] [address] Apr, [facility] [id number] [place] [address] Mar, ADHD (attention deficit hyperactivity disorder), combined type F90.2 [facility] [id number] [place] [address] Feb, ADHD (attention deficit hyperactivity disorder), combined type F90.2 [facility] [address] [address] Jan, ADHD (attention deficit hyperactivity disorder), combined type F90.2 ; Bipolar disorder, in partial remission, most recent episode manic F31.73 ; Borderline personality disorder F60.3 and Autism spectrum disorder F84.0 [facility] [id number] [place] [address] Jan, Acne vulgaris L70.0 [facility] [id number] [place] [address] Jan, [facility] [id number] [place] [address] Dec, [facility] [id number] [place] [address] Dec, [facility] [id number] [place] [id number] Dec, Encounter for dental examination Z01.20 [facility] [address] [place] [address] Dec, ADHD (attention deficit hyperactivity disorder), combined type F90.2 ; Bipolar disorder, in partial remission, most recent episode manic F31.73 ; Borderline personality disorder F60.3 and Autism spectrum disorder F84.0 [facility] [address] [address] November, ADHD (attention deficit hyperactivity disorder), combined type F90.2 [facility] [address] [address] November, [facility] [id number] [place] [address] November, [facility] [address] [address] November, [facility] [id number] [place] [address] Oct, Bipolar disorder, in partial remission, most recent episode manic F31.73 [facility] [address] [address] Oct, ADHD (attention deficit hyperactivity disorder), combined type F90.2 [facility] [address] [address] Oct, [facility] [id number] [place] [address] Oct, [facility] [address] [address] Oct, ADHD (attention deficit hyperactivity disorder), combined [...] index (BMI) of 32.0-32.9 in adult Z68.32 [id number] [place] [address] Sep, [facility] [address] [place] [address] Sep, Borderline personality disorder F60.3 [facility] [address] [address] Aug, Borderline personality disorder F60.3 [facility] [address] [address] Aug, [facility] [address] [place] [address] Jul, Borderline personality disorder F60.3 ; Autism spectrum disorder F84.0 ; Bipolar disorder, in partial remission, most recent episode manic F31.73 and ADHD (attention deficit hyperactivity disorder), combined type F90.2 [facility] [address] [facility] [id number] [address] Jul, [facility] [address] [place] [id number] Jul, Dental examination Z01.20 [facility] [address] [address] Jun, [facility] [id number] [place] [address] May, [facility] [address] [place] [phone] May, Dental examination Z01.20 [facility] [id number] [place] [address] May, [facility] [id number] [place] [address] May, High risk medication use Z79.899 [facility] [address] [address] May, [facility] [id number] [place] [address] May, [facility] [address] [address] Apr, High risk medication use Z79.899 ; Borderline personality disorder F60.3 ; Autism spectrum disorder F84.0 ; Bipolar disorder, in partial remission, most recent episode manic F31.73 and ADHD (attention deficit hyperactivity disorder), combined type F90.2 [facility] [address] [address] Apr, [facility] [id number] [address] Apr, [facility] [address] [address] Apr, Chronic GERD K21.9 ; Chronic seasonal allergic rhinitis, unspecified trigger J30.2 ; Urinary incontinence, unspecified type R32 and Encounter for immunization Z23 [facility] [address] [facility] [id number] [place] [address] Mar, [facility] [address] [facility] [id number] [place] [address] 20 Mar, 2017 ADHD (attention deficit hyperactivity disorder), combined type F90.2 ; Bipolar disorder, in partial remission, most recent episode manic F31.73 ; Autism spectrum disorder F84.0 and Borderline personality disorder F60.3 IMMUNIZATIONS No Known Immunizations SOCIAL HISTORY Never Assessed REASON FOR VISIT focalin 02/19/2018 PLAN OF CARE VITAL SIGNS MEDICATIONS Medication Instructions Dosage Frequency Start Date End Date Duration Status Focalin 10 mg Orally at 10am and 3pm 1 tablet Feb, 28 days Active Focalin XR 30 MG Orally. NAME BRAND ONLY Once a day in morning 1 capsule Feb, 28 days Active Focalin 5 mg Orally at 3pm 1 tablet Feb, 28 days Active RESULTS No Results PROCEDURES [...]
--- OUTSIDE RECORDS SUMMARY | 2019-01-09 22:47 | XMS REPORT ---
Author Author MANSOOR LIO [facility] Address [address] [place] [address] Care Team Providers Care Digital Printer Operator Name Role Phone FREDRICKMART JAYA Unavailable PROBLEMS Type Condition ICD9-CM Code [id number] Code Onset Dates Condition Status SNOMED Code Problem Bipolar disorder, in partial remission, most recent episode manic F31.73 Active 75750788 Problem ADHD (attention deficit hyperactivity disorder), combined type F90.2 Active 71788034 Problem Autism spectrum disorder F84.0 Active 66509354 Problem Borderline personality disorder F60.3 Active 84069324 Problem Other obesity due to excess calories E66.09 Active 565517400 Problem Acne vulgaris L70.0 Active 88721185 Problem Urinary incontinence, unspecified type R32 Active 479288372 Problem Chronic seasonal allergic rhinitis, unspecified trigger J30.2 Active 054462678 Problem Body mass index (BMI) of 32.0-32.9 in adult Z68.32 Active 714360037 Problem Chronic GERD K21.9 Active 820007879 ALLERGIES No Information ENCOUNTERS Encounter Location Date Diagnosis [facility] [id number] [id number] Jun, [facility] [id number] [place] [address] Apr, [facility] [address] [place] [address] Apr, [facility] [id number] [place] [address] Mar, ADHD (attention deficit hyperactivity disorder), combined type F90.2 [facility] [id number] [place] [address] Feb, ADHD (attention deficit hyperactivity disorder), combined type F90.2 [facility] [address], [place] [address] Jan, ADHD (attention deficit hyperactivity disorder), combined type F90.2 ; Bipolar disorder, in partial remission, most recent episode manic F31.73 ; Borderline personality disorder F60.3 and Autism spectrum disorder F84.0 [facility] [id number] [place] [address] Jan, Acne vulgaris L70.0 [facility] [id number] [place] [address] Jan, [facility] [id number] [place] [address] Dec, [facility] [id number] [place] [address] Dec, [facility] [id number] [place] [id number] Dec, Encounter for dental examination Z01.20 [facility] [address] [place] [address] Dec, ADHD (attention deficit hyperactivity disorder), combined type F90.2 ; Bipolar disorder, in partial remission, most recent episode manic F31.73 ; Borderline personality disorder F60.3 and Autism spectrum disorder F84.0 [facility] [address], [place] [address] November, ADHD (attention deficit hyperactivity disorder), combined type F90.2 [facility] [address], [place] [address] November, [facility] [id number] [place] [address] November, [facility] [address], [place] [address] November, [facility] [id number] [place] [address] Oct, Bipolar disorder, in partial remission, most recent episode manic F31.73 [facility] [address], [place] [address] Oct, ADHD (attention deficit hyperactivity disorder), combined type F90.2 [facility] [address], [place] [address] Oct, [facility] [id number] [place] [address] Oct, [facility] [address], [place] [address] Oct, ADHD (attention deficit hyperactivity disorder), combined [...] index (BMI) of 32.0-32.9 in adult Z68.32 [id number] [place] [address] Sep, [facility] [address] [place] [address] Sep, Borderline personality disorder F60.3 [facility] [address], [place] [address] Aug, Borderline personality disorder F60.3 [facility] [address], [place] [address] Aug, [facility] [address] [place] [address] Jul, Borderline personality disorder F60.3 ; Autism spectrum disorder F84.0 ; Bipolar disorder, in partial remission, most recent episode manic F31.73 and ADHD (attention deficit hyperactivity disorder), combined type F90.2 [facility] [address] [facility] [id number] [address] Jul, [facility] [address] [place] [id number] Jul, Dental examination Z01.20 [facility] [address], [place] [address] Jun, [facility] [id number] [place] [address] May, [facility] [address] [place] [id number] May, Dental examination Z01.20 [facility] [id number] [place] [address] May, [facility] [id number] [place] [address] May, High risk medication use Z79.899 [facility] [address], [place] [address] May, [facility] [id number] [place] [address] May, [facility] [address], [place] [address] Apr, High risk medication use Z79.899 ; Borderline personality disorder F60.3 ; Autism spectrum disorder F84.0 ; Bipolar disorder, in partial remission, most recent episode manic F31.73 and ADHD (attention deficit hyperactivity disorder), combined type F90.2 [facility] [address], [place] [address] Apr, [facility] [id number], [place] [address] Apr, [facility] [address], [place] [address] Apr, Chronic GERD K21.9 ; Chronic seasonal allergic rhinitis, unspecified trigger J30.2 ; Urinary incontinence, unspecified type R32 and Encounter for immunization Z23 [facility] [address] [facility] [id number] [place] [address] Mar, [facility] [address] [facility] [id number] [place] [address] Mar, ADHD (attention deficit hyperactivity disorder), combined type F90.2 ; Bipolar disorder, in partial remission, most recent episode manic F31.73 ; Autism spectrum disorder F84.0 and Borderline personality disorder F60.3 IMMUNIZATIONS No Known Immunizations SOCIAL HISTORY Never Assessed REASON FOR VISIT focalin 03/19/2018 PLAN OF CARE VITAL SIGNS MEDICATIONS Medication Instructions Dosage Frequency Start Date End Date Duration Status Focalin 10 mg Orally at 10am and 3pm 1 tablet Mar, 28 days Active Focalin XR 30 MG Orally. NAME BRAND ONLY Once a day in morning 1 capsule Mar, 28 days Active RESULTS No Results PROCEDURES [...]
--- OUTSIDE RECORDS SUMMARY | 2019-01-09 22:47 | XMS REPORT ---
Author Author MANSOOR LIO [facility] Address [address] [place] [address] Care Team Providers Care Dump Truck Driver Off Highway Name Role Phone FREDRICKLIO JAY Unavailable PROBLEMS Type Condition ICD9-CM Code CJK59-DE Code Onset Dates Condition Status SNOMED Code Problem Autism spectrum disorder F84.0 Active 21071207 Problem Chronic seasonal allergic rhinitis, unspecified trigger J30.2 Active 384170930 Problem ADHD (attention deficit hyperactivity disorder), combined type F90.2 Active 86333545 Problem Borderline personality disorder F60.3 Active 82829604 Problem Bipolar disorder, in partial remission, most recent episode manic F31.73 Active 07991975 Problem Psychosis, unspecified psychosis type F29 Active 77392021 Problem Body mass index (BMI) of 32.0-32.9 in adult Z68.32 Active 195686987 Problem Chronic GERD K21.9 Active 182972041 Problem Urinary incontinence, unspecified type R32 Active 850467260 Problem Other obesity due to excess calories E66.09 Active 830770791 Problem Acne vulgaris L70.0 Active 96970328 ALLERGIES No Information ENCOUNTERS Encounter Location Date Diagnosis [facility] [id number] [address] Jul, [facility] [id number], [place] [address] Jun, [facility] [address] [facility] [id number] [id number] Jun, [facility] [address], [place] [address] Apr, [facility] [address] [facility] [address] [address] [id number] [id number] Apr, [facility] [address] [place] [address] Apr, Acne vulgaris L70.0 ; Chronic constipation K59.09 ; Kyphosis of cervicothoracic region, 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 ; Pain of left foot M79.672 and Pain in right foot M79.671 [facility] [address] [place] [address] Apr, ADHD (attention deficit hyperactivity disorder), combined type F90.2 ; Borderline personality disorder F60.3 ; Autism spectrum disorder F84.0 and Psychosis, unspecified psychosis type F29 [facility] [id number] [place] [address] Mar, ADHD (attention deficit hyperactivity disorder), combined type F90.2 [facility] [id number] [place] [address] Feb, ADHD (attention deficit hyperactivity disorder), combined type F90.2 [facility] [id number] [place] [address] Jan, ADHD (attention deficit hyperactivity disorder), combined type F90.2 ; Bipolar disorder, in partial remission, most recent episode manic F31.73 ; Borderline personality disorder F60.3 and Autism spectrum disorder F84.0 [facility] [id number] [place] [address] Jan, Acne vulgaris L70.0 [facility] [id number] [place] [address] Jan, [facility] [id number] [place] [address] Dec, [facility] [address] [address] Dec, [facility] [address] [place] [id number] Dec, Encounter for dental examination Z01.20 [facility] [id number] [place] [address] Dec, ADHD (attention deficit hyperactivity disorder), combined type F90.2 ; Bipolar disorder, in partial remission, most recent episode manic F31.73 ; Borderline personality disorder F60.3 and Autism spectrum disorder F84.0 [facility] [address], [place] [address] November, ADHD (attention deficit hyperactivity disorder), combined type F90.2 [facility] [address], [place] [address] November, [facility] [address], [place] [address] November, [facility] [address], [place] [address] November, [facility] [address], [place] [address] Oct, Bipolar disorder, in partial remission, most recent episode manic F31.73 [facility] [address], [place] [address] Oct, ADHD (attention deficit hyperactivity disorder), combined type F90.2 [facility] [address], [place] [address] Oct, [facility] [address], [place] [address] Oct, [facility] [address], [place] [address] Oct, ADHD (attention deficit hyperactivity disorder), combined [...] index (BMI) of 32.0-32.9 in adult Z68.32 [facility] [id number] [place] [address] Sep, [facility] [id number] [place] [address] Sep, Borderline personality disorder F60.3 [facility] [id number] [place] [address] Aug, Borderline personality disorder F60.3 [facility] [id number] [place] [address] Aug, [facility] [id number] [place] [address] Jul, Borderline personality disorder F60.3 ; Autism spectrum disorder F84.0 ; Bipolar disorder, in partial remission, most recent episode manic F31.73 and ADHD (attention deficit hyperactivity disorder), combined type F90.2 [facility] [id number] [place] [address] Jul, [facility] [id number] [place] [phone] Jul, Dental examination Z01.20 [facility] [id number] [place] [address] Jun, [facility] [id number] [place] [address] May, [facility] [id number] [place] [phone] May, Dental examination Z01.20 [facility] [id number] [place] [address] May, [facility] [id number] [place] [address] May, High risk medication use Z79.899 [facility] [id number] [place] [address] May, [place] [address] [place] [address] May, [place] [id number] [place] [address] Apr, High risk medication use Z79.899 ; Borderline personality disorder F60.3 ; Autism spectrum disorder F84.0 ; Bipolar disorder, in partial remission, most recent episode manic F31.73 and ADHD (attention deficit hyperactivity disorder), combined type F90.2 [place] [id number] [place] [address] Apr, [place] [address] [address] Apr, [place] [id number] [place] [address] Apr, Chronic GERD K21.9 ; Chronic seasonal allergic rhinitis, unspecified trigger J30.2 ; Urinary incontinence, unspecified type R32 and Encounter for immunization Z23 [place] [id number] [place] [address] Mar, [place] [id number] [place] [address] Mar, ADHD (attention deficit hyperactivity disorder), combined type F90.2 ; Bipolar disorder, in partial remission, most recent episode manic F31.73 ; Autism spectrum disorder F84.0 and Borderline personality disorder F60.3 IMMUNIZATIONS No Known Immunizations SOCIAL HISTORY Never Assessed REASON FOR VISIT BH f/u- AB/MA, due for refill of stimulants if continued. PLAN OF CARE Activity Details Follow Up 3 Months Reason: VITAL SIGNS Height 5'7" in 2018-04-13 Weight 214.2 lbs 2018-04-13 Heart Rate 108 bpm 2018-04-13 Respiratory Rate 20 2018-04-13 BMI 33.54 kg/m2 2018-04-13 Blood pressure systolic 118 mmHg 2018-04-13 Blood pressure diastolic 82 mmHg 2018-04-13 MEDICATIONS Medication Instructions Dosage Frequency Start Date End Date Duration Status Sonata 10 mg Orally Once a day 1 cap at bedtime as needed 24h 30 days Active Focalin XR 30 MG Orally. NAME BRAND ONLY Once a day in morning 1 capsule Apr, Apr, 28 days Active Fanapt 12 MG Orally Twice a day 1 tablet 12h 30 days Active DiphenhydrAMINE HCl 50 MG 2 CAPSULES AT BEDTIME NEEDED FOR SLEEP ORALLY 30 DAYS Active Trileptal 600 MG Orally Twice a day 1 tablet 12h 30 days Active Cetirizine HCl 10 mg Orally Once a day 1 tablet 24h Oct, Jun, 90 days Active Pantoprazole Sodium 40 mg Orally Once a day 1 tablet 24h Apr, Active Guanfacine HCl 1 MG Orally daily 1 TABLET 3 TIMES A DAY AT 7AM, 11 AM AND 630PM ORALLY 30 DAYS 24h 30 days Active Focalin 10 MG Orally at 10am and 3pm 1 tablet Apr, Apr, 28 days Active Singulair 10 mg Orally Once a day 1 tablet in the evening 24h Active Perphenazine 8 MG Orally Twice a day 1 tablet 12h 30 days Active Docusate Sodium 100 MG Orally Once a day 1 capsule as needed 24h Active Focalin 5 MG Orally at 3pm 1 tablet Apr, Apr, 28 days Active FluvoxaMINE Maleate ER 150 MG Orally at bedtime 2 capsules 30 days Active Minocycline HCl 100 mg Orally every 12 hrs 1 capsule 12h 30 Active Benztropine Mesylate 2 mg Orally at bedtime 1 tablet 30 days Active Incontinence Supplies - as directed Apr, Active RESULTS No Results PROCEDURES No Known [...]
--- OUTSIDE RECORDS SUMMARY | 2019-01-09 22:47 | XMS REPORT ---
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 Name Role Phone INDERJIT CADET Unavailable PROBLEMS Type Condition ICD9-CM Code YCN14-UJ Code Onset Dates Condition Status SNOMED Code Problem Bipolar disorder, in partial remission, most recent episode manic F31.73 Active 33401881 Problem Urinary incontinence, unspecified type R32 Active 167881406 Problem Chronic seasonal allergic rhinitis, unspecified trigger J30.2 Active 944784262 Problem Autism spectrum disorder F84.0 Active 08380903 Problem ADHD (attention deficit hyperactivity disorder), combined type F90.2 Active 70737751 Problem Borderline personality disorder F60.3 Active 57987754 Problem Other chronic pain G89.29 Active 34611737 Problem Psychosis, unspecified psychosis type F29 Active 40271609 Problem Body mass index (BMI) of 32.0-32.9 in adult Z68.32 Active 386505831 Problem Chronic GERD K21.9 Active 044865837 Problem Other obesity due to excess calories E66.09 Active 841036511 Problem Acne vulgaris L70.0 Active 09869850 ALLERGIES No Information ENCOUNTERS Encounter Location Date Diagnosis [facility] [address] [place] [address] Jul, [facility] [id number] [place] [address] Jun, [facility] [address] [place] [phone] Jun, [facility] [id number] [place] [address] Apr, [facility] [id number] [place] [address] Apr, [facility] [address] 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 ; Pain of left foot M79.672 and Pain in right foot M79.671 [place] [address], [place] [address] Apr, ADHD (attention deficit hyperactivity disorder), combined type F90.2 ; Borderline personality disorder F60.3 ; Autism spectrum disorder F84.0 and Psychosis, unspecified psychosis type F29 [place] [address], [place] [address] Mar, ADHD (attention deficit hyperactivity disorder), combined type F90.2 [place] [id number], [place] [address] Feb, ADHD (attention deficit hyperactivity disorder), combined type F90.2 [place] [address], [place] [address] Jan, ADHD (attention deficit hyperactivity disorder), combined type F90.2 ; Bipolar disorder, in partial remission, most recent episode manic F31.73 ; Borderline personality disorder F60.3 and Autism spectrum disorder F84.0 [facility] [address], [place] [address] Jan, Acne vulgaris L70.0 [place] [address], [place] [address] Jan, [facility] [address] [address] Dec, [facility] [address], [place] [address] Dec, [facility] [id number] [id number] Dec, Encounter for dental examination Z01.20 [facility] [id number] [place] [address] Dec, ADHD (attention deficit hyperactivity disorder), combined type F90.2 ; Bipolar disorder, in partial remission, most recent episode manic F31.73 ; Borderline personality disorder F60.3 and Autism spectrum disorder F84.0 [facility] [address], [place] [address] November, ADHD (attention deficit hyperactivity disorder), combined type F90.2 [facility] [address], [place] [address] November, [facility] [id number] [place] [address] November, [facility] [address], [place] [address] November, [facility] [address], [place] [address] Oct, Bipolar disorder, in partial remission, most recent episode manic F31.73 [facility] [address], [place] [address] Oct, ADHD (attention deficit hyperactivity disorder), combined type F90.2 [facility] [address], [place] [address] Oct, [facility] [address], [place] [address] Oct, [facility] [id number] [place] [address] Oct, ADHD (attention deficit hyperactivity disorder), combined [...] index (BMI) of 32.0-32.9 in adult Z68.32 [facility] [id number] [place] [address] Sep, [facility] [address] [address] Sep, Borderline personality disorder F60.3 [facility] [address] [address] Aug, Borderline personality disorder F60.3 [facility] [id number] [place] [address] Aug, [facility] [address] [address] Jul, Borderline personality disorder F60.3 ; Autism spectrum disorder F84.0 ; Bipolar disorder, in partial remission, most recent episode manic F31.73 and ADHD (attention deficit hyperactivity disorder), combined type F90.2 [facility] [id number] [place] [address] Jul, [facility] [id number] [place] [phone] Jul, Dental examination Z01.20 [facility] [address] [address] Jun, [facility] [address] [address] May, [facility] [address] [phone] May, Dental examination Z01.20 [facility] [address], [place] [address] May, [facility] [address], [place] [address] May, High risk medication use Z79.899 [facility] [address], [place] [address] May, [facility] [address], [place] [address] May, [facility] [address], [place] [address] Apr, High risk medication use Z79.899 ; Borderline personality disorder F60.3 ; Autism spectrum disorder F84.0 ; Bipolar disorder, in partial remission, most recent episode manic F31.73 and ADHD (attention deficit hyperactivity disorder), combined type F90.2 [facility] [address], [place] [address] Apr, [facility] [address], [place] [address] Apr, [facility] [address], [place] [address] Apr, Chronic GERD K21.9 ; Chronic seasonal allergic rhinitis, unspecified trigger J30.2 ; Urinary incontinence, unspecified type R32 and Encounter for immunization Z23 [facility] [id number], [place] [address] Mar, [facility] [address], [place] [address] Mar, ADHD (attention deficit hyperactivity disorder), combined type F90.2 ; Bipolar disorder, in partial remission, most recent episode manic F31.73 ; Autism spectrum disorder F84.0 and Borderline personality disorder F60.3 IMMUNIZATIONS No Known Immunizations SOCIAL HISTORY Never Assessed REASON FOR VISIT FYI PLAN OF CARE VITAL SIGNS MEDICATIONS Unknown [...]
--- OUTSIDE RECORDS SUMMARY | 2019-01-09 22:47 | XMS REPORT ---
Author Author INDERJIT CADET Organization [facility] Address [address] [place] [address] Care Team Providers Care Manager Roofing Name Role Phone INDERJIT CADET Unavailable PROBLEMS Type Condition ICD9-CM Code [id number] Code Onset Dates Condition Status SNOMED Code Problem Bipolar disorder, in partial remission, most recent episode manic F31.73 Active 90121543 Problem Urinary incontinence, unspecified type R32 Active 367743652 Problem Chronic seasonal allergic rhinitis, unspecified trigger J30.2 Active 407370502 Problem Autism spectrum disorder F84.0 Active 22187779 Problem ADHD (attention deficit hyperactivity disorder), combined type F90.2 Active 41268233 Problem Borderline personality disorder F60.3 Active 21750016 Problem Other chronic pain G89.29 Active 41851977 Problem Psychosis, unspecified psychosis type F29 Active 38619542 Problem Body mass index (BMI) of 32.0-32.9 in adult Z68.32 Active 709236672 Problem Chronic GERD K21.9 Active 121902874 Problem Other obesity due to excess calories E66.09 Active 711599988 Problem Acne vulgaris L70.0 Active 04224300 ALLERGIES No Information ENCOUNTERS Encounter Location Date Diagnosis [facility] [id number] [place] [phone] Jul, [facility] [id number] [place] [address] Jun, [facility] [id number] [place] [id number] Jun, [facility] [id number] [place] [address] Apr, [facility] [id number] [place] [address] Apr, [facility] [address] [id number] [id number] Apr, Dorsalgia, unspecified M54.9 and Other chronic pain G89.29 [facility] [address] [address] Apr, Acne vulgaris L70.0 ; Chronic constipation K59.09 ; Kyphosis of cervicothoracic region, 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 ; Pain of left foot M79.672 and Pain in right foot M79.671 [facility] [address] [address] Apr, ADHD (attention deficit hyperactivity disorder), combined type F90.2 ; Borderline personality disorder F60.3 ; Autism spectrum disorder F84.0 and Psychosis, unspecified psychosis type F29 [facility] [address] [address] Mar, ADHD (attention deficit hyperactivity disorder), combined type F90.2 [facility] [address] [address] Feb, ADHD (attention deficit hyperactivity disorder), combined type F90.2 [place] [id number] [place] [address] Jan, ADHD (attention deficit hyperactivity disorder), combined type F90.2 ; Bipolar disorder, in partial remission, most recent episode manic F31.73 ; Borderline personality disorder F60.3 and Autism spectrum disorder F84.0 [facility] [address] [address] Jan, Acne vulgaris L70.0 [facility] [id number] [place] [address] Jan, [facility] [address] [address] Dec, [place] [id number] [place] [address] Dec, [facility] [id number] [id number] 11 Dec, 2017 Encounter for dental examination Z01.20 [facility] [address] [address] 04 Dec, 2017 ADHD (attention deficit hyperactivity disorder), combined type F90.2 ; Bipolar disorder, in partial remission, most recent episode manic F31.73 ; Borderline personality disorder F60.3 and Autism spectrum disorder F84.0 [facility] [address] [address] November, ADHD (attention deficit hyperactivity disorder), combined type F90.2 [facility] [address] [address] November, [facility] [id number] [address] November, [facility] [address] [address] November, [facility] [address] [place] [address] Oct, Bipolar disorder, in partial remission, most recent episode manic F31.73 [facility] [address] [address] Oct, ADHD (attention deficit hyperactivity disorder), combined type F90.2 [facility] [address] [address] Oct, [facility] [address] [address] Oct, [facility] [address] [address] Oct, ADHD (attention deficit hyperactivity disorder), combined [...] index (BMI) of 32.0-32.9 in adult Z68.32 [facility] [address] [address] Sep, [facility] [id number] [place] [address] Sep, Borderline personality disorder F60.3 [facility] [id number] [place] [address] Aug, Borderline personality disorder F60.3 [facility] [id number] [place] [address] Aug, [facility] [id number] [place] [address] Jul, Borderline personality disorder F60.3 ; Autism spectrum disorder F84.0 ; Bipolar disorder, in partial remission, most recent episode manic F31.73 and ADHD (attention deficit hyperactivity disorder), combined type F90.2 [facility] [address] [place] [address] Jul, [facility] [address] [id number] Jul, Dental examination Z01.20 [facility] [address] [place] [address] Jun, [facility] [address] [place] [address] May, [facility] [address] [place] [phone] May, Dental examination Z01.20 [facility] [address] [address] May, [facility] [address] [address] May, High risk medication use Z79.899 [place] [id number] [place] [address] May, [place] [id number] [place] [address] May, [place] [id number] [place] [address] Apr, High risk medication use Z79.899 ; Borderline personality disorder F60.3 ; Autism spectrum disorder F84.0 ; Bipolar disorder, in partial remission, most recent episode manic F31.73 and ADHD (attention deficit hyperactivity disorder), combined type F90.2 [place] [id number] [place] [address] Apr, [place] [id number] [place] [address] Apr, [place] [id number] [place] [address] Apr, Chronic GERD K21.9 ; Chronic seasonal allergic rhinitis, unspecified trigger J30.2 ; Urinary incontinence, unspecified type R32 and Encounter for immunization Z23 [place] [id number] [place] [address] Mar, [place] [id number] [place] [address] Mar, ADHD (attention deficit hyperactivity disorder), combined type F90.2 ; Bipolar disorder, in partial remission, most recent episode manic F31.73 ; Autism spectrum disorder F84.0 and Borderline personality disorder F60.3 IMMUNIZATIONS No Known Immunizations SOCIAL HISTORY Never Assessed REASON FOR VISIT Medication question PLAN OF CARE VITAL SIGNS MEDICATIONS Unknown [...]
--- OUTSIDE RECORDS SUMMARY | 2019-01-09 22:48 | XMS REPORT ---
Author Author REEVESSAMANTHA Organization [facility] Address [address] [place] [address] Care Team Providers Care Precipitator Supervisor Name Role Phone SAMANTHA REEVES Unavailable PROBLEMS Type Condition ICD9-CM Code [id number] Code Onset Dates Condition Status SNOMED Code Problem Bipolar disorder, in partial remission, most recent episode manic F31.73 Active 45834627 Problem ADHD (attention deficit hyperactivity disorder), combined type F90.2 Active 55827320 Problem Autism spectrum disorder F84.0 Active 60571824 Problem Borderline personality disorder F60.3 Active 31467640 Problem Other obesity due to excess calories E66.09 Active 614647830 Problem Acne vulgaris L70.0 Active 53853918 Problem Urinary incontinence, unspecified type R32 Active 984798863 Problem Chronic seasonal allergic rhinitis, unspecified trigger J30.2 Active 149528750 Problem Body mass index (BMI) of 32.0-32.9 in adult Z68.32 Active 866002521 Problem Chronic GERD K21.9 Active 065396885 ALLERGIES Substance Reaction Event Type Date Status Phenergan hives Drug Allergy Jan, Active Depakote concentration problems Drug Allergy Jan, Active ENCOUNTERS Encounter Location Date Diagnosis [facility] [id number] [phone] Jun, [facility] [address] [address] Apr, [facility] [address], [place] [address] Apr, [facility] [address] [address] Mar, ADHD (attention deficit hyperactivity disorder), combined type F90.2 [facility] [address] [place] [address] Feb, ADHD (attention deficit hyperactivity disorder), combined type F90.2 [facility] [address] [place] [address] Jan, ADHD (attention deficit hyperactivity disorder), combined type F90.2 ; Bipolar disorder, in partial remission, most recent episode manic F31.73 ; Borderline personality disorder F60.3 and Autism spectrum disorder F84.0 [facility] [id number] [place] [address] Jan, Acne vulgaris L70.0 [facility] [id number] [place] [address] Jan, [facility] [id number] [place] [address] Dec, [facility] [id number] [place] [address] Dec, [facility] [id number] [place] [id number] Dec, Encounter for dental examination Z01.20 [facility] [id number] [place] [address] Dec, ADHD (attention deficit hyperactivity disorder), combined type F90.2 ; Bipolar disorder, in partial remission, most recent episode manic F31.73 ; Borderline personality disorder F60.3 and Autism spectrum disorder F84.0 [facility] [address] [place] [address] November, ADHD (attention deficit hyperactivity disorder), combined type F90.2 [facility] [address] [place] [address] November, [facility] [id number] [place] [address] November, [facility] [id number] [place] [address] November, [place] [address], [place] [address] Oct, Bipolar disorder, in partial remission, most recent episode manic F31.73 [place] [address] [place] [address] Oct, ADHD (attention deficit hyperactivity disorder), combined type F90.2 [place] [id number] [place] [address] Oct, [place] [address] [place] [address] Oct, [place] [id number] [place] [address] Oct, ADHD (attention deficit hyperactivity disorder), combined [...] index (BMI) of 32.0-32.9 in adult Z68.32 [place] [address], [place] [address] Sep, [place] [address], [place] [address] Sep, Borderline personality disorder F60.3 [place] [address], [place] [address] Aug, Borderline personality disorder F60.3 [place] [id number] [place] [address] Aug, [place] [address], [place] [address] Jul, Borderline personality disorder F60.3 ; Autism spectrum disorder F84.0 ; Bipolar disorder, in partial remission, most recent episode manic F31.73 and ADHD (attention deficit hyperactivity disorder), combined type F90.2 [facility] [id number] [place] [address] Jul, [facility] [address] [place] [id number] Jul, Dental examination Z01.20 [facility] [id number] [place] [address] Jun, [facility] [id number] [place] [address] May, [facility] [id number] [place] [id number] May, Dental examination Z01.20 [facility] [id number] [place] [address] May, [facility] [id number] [place] [address] May, High risk medication use Z79.899 [facility] [id number] [place] [address] May, [facility] [id number] [place] [address] May, [facility] [address] [place] [address] Apr, High risk medication use Z79.899 ; Borderline personality disorder F60.3 ; Autism spectrum disorder F84.0 ; Bipolar disorder, in partial remission, most recent episode manic F31.73 and ADHD (attention deficit hyperactivity disorder), combined type F90.2 [facility] [id number] [place] [address] Apr, [facility] [id number] [address] Apr, [facility] [id number] [place] [address] Apr, Chronic GERD K21.9 ; Chronic seasonal allergic rhinitis, unspecified trigger J30.2 ; Urinary incontinence, unspecified type R32 and Encounter for immunization Z23 [facility] [address] [facility] [id number] [address] Mar, [facility] [address] [facility] [id number] [address] Mar, ADHD (attention deficit hyperactivity disorder), combined type F90.2 ; Bipolar disorder, in partial remission, most recent episode manic F31.73 ; Autism spectrum disorder F84.0 and Borderline personality disorder F60.3 IMMUNIZATIONS No Known Immunizations SOCIAL HISTORY Never Assessed REASON FOR VISIT Acne f/u--tcuppettRN PLAN OF CARE Activity Details Follow Up 3 Months, prn Reason:CHM/Acne follow up VITAL SIGNS Height 5'7" in 2018-02-06 Weight 218.4 lbs 2018-02-06 Temperature 98.5 degrees Fahrenheit 2018-02-06 Heart Rate 93 bpm 2018-02-06 Respiratory Rate 20 2018-02-06 BMI 34.20 kg/m2 2018-02-06 Blood pressure systolic 118 mmHg 2018-02-06 Blood pressure diastolic 72 mmHg 2018-02-06 MEDICATIONS Medication Instructions Dosage Frequency Start Date End Date Duration Status Incontinence Supplies - as directed Apr, Active DiphenhydrAMINE HCl 50 MG 2 CAPSULES AT BEDTIME NEEDED FOR SLEEP ORALLY 30 DAYS 30 Active Trileptal 600 MG 1 TABLET TWICE A DAY ORALLY 30 DAYS Active Minocycline HCl 100 mg Orally every 12 hrs 1 capsule 12h 30 Active Sonata 10 mg 1 CAPSULE AT BEDTIME NEEDED ONCE A DAY ORALLY 30 DAYS 30 Active Fanapt 12 MG 1 TABLET TWICE A DAY ORALLY 30 DAYS 30 Active Docusate Sodium 100 MG Orally Once a day 1 capsule as needed 24h Active Benztropine Mesylate 2 MG Orally at bedtime 1 tablet Active Perphenazine 8 MG Orally Twice a day 1 tablet 12h Active Guanfacine HCl 1 MG 1 TABLET 3 TIMES A DAY AT 7AM, 11 AM AND 630PM ORALLY 30 DAYS Active Pantoprazole Sodium 40 mg Orally Once a day 1 tablet 24h Apr, Active Focalin 5 mg Orally at 3pm 1 tablet Jan, 28 days Active FluvoxaMINE Maleate ER 150 MG Orally at bedtime 2 capsules Active Singulair 10 mg Orally Once a day 1 tablet in the evening 24h Active Focalin XR 30 MG Orally. NAME BRAND ONLY Once a day in morning 1 capsule Jan, 28 days Active Cetirizine HCl 10 mg Orally Once a day 1 tablet 24h Oct, Jun, 90 days Active Focalin 10 mg Orally at 10am and 3pm 1 tablet Jan, 28 days Active RESULTS No Results PROCEDURES [...]
--- OUTSIDE RECORDS SUMMARY | 2019-01-09 22:48 | XMS REPORT ---
Author Author DEAN DÍAZ [facility] Address [address] [place] [address] Care Team Providers Care Audio/Video Engineer Name Role Phone DEAN DÍAZ Unavailable PROBLEMS Type Condition ICD9-CM Code [id number] Code Onset Dates Condition Status SNOMED Code Problem Bipolar disorder, in partial remission, most recent episode manic F31.73 Active 59792917 Problem ADHD (attention deficit hyperactivity disorder), combined type F90.2 Active 63660062 Problem Autism spectrum disorder F84.0 Active 12023484 Problem Borderline personality disorder F60.3 Active 43309974 Problem Other obesity due to excess calories E66.09 Active 536598622 Problem Acne vulgaris L70.0 Active 16154853 Problem Urinary incontinence, unspecified type R32 Active 237414483 Problem Chronic seasonal allergic rhinitis, unspecified trigger J30.2 Active 079572229 Problem Body mass index (BMI) of 32.0-32.9 in adult Z68.32 Active 098938092 Problem Chronic GERD K21.9 Active 493152639 ALLERGIES Substance Reaction Event Type Date Status Phenergan hives Drug Allergy Dec, Active Depakote concentration problems Drug Allergy Dec, Active ENCOUNTERS Encounter Location Date Diagnosis [facility] [id number] [id number] Jun, [facility], [place] [id number] [address] Apr, [facility], [place] [id number] [address] Apr, [facility], [place] [id number] [place] [phone] Feb, ADHD (attention deficit hyperactivity disorder), combined type F90.2 [facility], [place] [address] [place] [phone] Jan, ADHD (attention deficit hyperactivity disorder), combined type F90.2 ; Bipolar disorder, in partial remission, most recent episode manic F31.73 ; Borderline personality disorder F60.3 and Autism spectrum disorder F84.0 [facility], [place] [id number] [place] [phone] Jan, Acne vulgaris L70.0 [facility], [place] [id number] [place] [phone] Jan, [facility], [place] [id number] [place] [phone] Dec, [facility], [place] [id number] [place] [phone] Dec, [facility] [id number] [place] [phone] Dec, Encounter for dental examination Z01.20 [facility], [place] [id number] [place] [phone] Dec, ADHD (attention deficit hyperactivity disorder), combined type F90.2 ; Bipolar disorder, in partial remission, most recent episode manic F31.73 ; Borderline personality disorder F60.3 and Autism spectrum disorder F84.0 [facility], [place] [id number] [place] [phone] November, ADHD (attention deficit hyperactivity disorder), combined type F90.2 [facility], [place] [id number] [place] [address] November, [facility], [place] [id number] [place] [phone] November, [facility], [place] [id number] [place] [phone] November, [facility], [place] [id number] [place] [phone] Oct, Bipolar disorder, in partial remission, most recent episode manic F31.73 [place] [id number] [address] Oct, ADHD (attention deficit hyperactivity disorder), combined type F90.2 [facility], [place] [address], [place] [address] Oct, [facility], [place] [id number], [place] [address] Oct, [facility], [place] [id number] [place] [address] Oct, ADHD (attention deficit hyperactivity disorder), combined [...] index (BMI) of 32.0-32.9 in adult Z68.32 [place] [id number], [place] [address] Sep, [place] [id number] [address] Sep, Borderline personality disorder F60.3 [place] [id number], [place] [address] Aug, Borderline personality disorder F60.3 [facility], [place] [id number], [place] [address] Aug, [facility], [place] [address], [place] [address] Jul, Borderline personality disorder F60.3 ; Autism spectrum disorder F84.0 ; Bipolar disorder, in partial remission, most recent episode manic F31.73 and ADHD (attention deficit hyperactivity disorder), combined type F90.2 [facility], [place] [address], [place] [address] Jul, [facility] [id number] [id number] Jul, Dental examination Z01.20 [facility], [place] [id number] [place] [address] Jun, [facility], [place] [id number] [place] [phone] May, [facility] [id number] [place] [phone] May, Dental examination Z01.20 [facility], [place] [id number] [place] [address] May, [facility], [place] [id number] [place] [address] May, High risk medication use Z79.899 [facility], [place] [id number] [place] [address] May, [facility], [place] [id number] [place] [address] May, [facility], [place] [id number] [place] [address] Apr, High risk medication use Z79.899 ; Borderline personality disorder F60.3 ; Autism spectrum disorder F84.0 ; Bipolar disorder, in partial remission, most recent episode manic F31.73 and ADHD (attention deficit hyperactivity disorder), combined type F90.2 [facility], [place] [address] [address] Apr, [facility], [place] [id number] [place] [phone] Apr, [facility], [place] [id number] [place] [address] Apr, Chronic GERD K21.9 ; Chronic seasonal allergic rhinitis, unspecified trigger J30.2 ; Urinary incontinence, unspecified type R32 and Encounter for immunization Z23 [facility], [place] [address] [facility] [id number] [place] [address] Mar, [facility], [place] [address] [facility] [id number] [place] [address] 20 Mar, 2017 ADHD (attention deficit hyperactivity disorder), combined type F90.2 ; Bipolar disorder, in partial remission, most recent episode manic F31.73 ; Autism spectrum disorder F84.0 and Borderline personality disorder F60.3 IMMUNIZATIONS No Known Immunizations SOCIAL HISTORY Never Assessed REASON FOR VISIT prophy PLAN OF CARE Activity Details Follow Up 6 Months Reason:Recall VITAL SIGNS Blood pressure systolic 112 mmHg 2017-12-22 Blood pressure diastolic 73 mmHg 2017-12-22 MEDICATIONS Medication Instructions Dosage Frequency Start Date End Date Duration Status Pantoprazole Sodium 40 mg Orally Once a day 1 tablet 24h Apr, Active Fanapt 12 MG 1 TABLET TWICE A DAY ORALLY 30 DAYS Active Sonata 10 mg Orally Once a day 1 capsule at bedtime as needed 24h Active Cetirizine HCl 10 mg Orally Once a day 1 tablet 24h Oct, Jun, 90 days Active FluvoxaMINE Maleate ER 150 MG Orally at bedtime 2 capsules Active Focalin 5 mg Orally at 3pm 1 tablet November, Active Guanfacine HCl 1 MG 1 TABLET 3 TIMES A DAY AT 7AM, 11 AM AND 630PM ORALLY 30 DAYS Active Trileptal 600 MG 1 TABLET TWICE A DAY ORALLY 30 DAYS Active Benztropine Mesylate 2 MG Orally at bedtime 1 tablet Active DiphenhydrAMINE HCl 50 MG 2 CAPSULES AT BEDTIME NEEDED FOR SLEEP ORALLY 30 DAYS Active Focalin XR 30 MG Orally Once a day in morning 1 capsule November, Active Incontinence Supplies - as directed Apr, Active Singulair 10 mg Orally Once a day 1 tablet in the evening 24h Active Focalin 10 mg Orally at 10am and 3pm 1 tablet November, Active Minocycline HCl 100 mg Orally every 12 hrs 1 capsule 12h Oct, Jan, 30 days Active Perphenazine 8 MG Orally Twice a day 1 tablet 12h Active RESULTS No Results PROCEDURES Procedure Date Ordered Result Body Site PROPHYLAXIS - ADULT December 22, 2017 TOPICAL FLUORIDE VARNISH December 22, 2017 INSTRUCTIONS MEDICATIONS ADMINISTERED No Known Medications MEDICAL [...]
--- OUTSIDE RECORDS SUMMARY | 2019-01-09 22:48 | XMS REPORT ---
Author Author MANSOOR LIO [facility] Address [address] [place] [address] Care Team Providers Care Supervisor Electrolytic Tinning Name Role Phone FREDRICKMART JAYA Unavailable PROBLEMS Type Condition ICD9-CM Code JYA22-TZ Code Onset Dates Condition Status SNOMED Code Problem Bipolar disorder, in partial remission, most recent episode manic F31.73 Active 34658240 Problem ADHD (attention deficit hyperactivity disorder), combined type F90.2 Active 30372282 Problem Autism spectrum disorder F84.0 Active 41549639 Problem Borderline personality disorder F60.3 Active 21591661 Problem Other obesity due to excess calories E66.09 Active 673099387 Problem Acne vulgaris L70.0 Active 29702419 Problem Urinary incontinence, unspecified type R32 Active 319428165 Problem Chronic seasonal allergic rhinitis, unspecified trigger J30.2 Active 296534954 Problem Body mass index (BMI) of 32.0-32.9 in adult Z68.32 Active 901892419 Problem Chronic GERD K21.9 Active 213789169 ALLERGIES No Information ENCOUNTERS Encounter Location Date Diagnosis [facility] [id number] [phone] Jun, [facility] [id number] [place] [address] Apr, [facility] [address] [place] [address] Apr, [facility] [id number] [place] [address] Mar, ADHD (attention deficit hyperactivity disorder), combined type F90.2 [facility] [address] [place] [address] Feb, ADHD (attention deficit hyperactivity disorder), combined type F90.2 [facility] [address], [place] [address] Jan, ADHD (attention deficit hyperactivity disorder), combined type F90.2 ; Bipolar disorder, in partial remission, most recent episode manic F31.73 ; Borderline personality disorder F60.3 and Autism spectrum disorder F84.0 [facility] [id number] [place] [address] Jan, Acne vulgaris L70.0 [facility] [id number] [place] [address] Jan, [facility] [id number] [place] [address] Dec, [facility] [id number] [place] [phone] Dec, [facility] [id number] [place] [phone] Dec, Encounter for dental examination Z01.20 [facility] [address] [place] [address] Dec, ADHD (attention deficit hyperactivity disorder), combined type F90.2 ; Bipolar disorder, in partial remission, most recent episode manic F31.73 ; Borderline personality disorder F60.3 and Autism spectrum disorder F84.0 [facility] [address], [place] [address] November, ADHD (attention deficit hyperactivity disorder), combined type F90.2 [facility] [address], [place] [address] November, [facility] [id number] [place] [address] November, [facility] [address], [place] [address] November, [facility] [id number] [place] [address] Oct, Bipolar disorder, in partial remission, most recent episode manic F31.73 [facility] [address], [place] [address] Oct, ADHD (attention deficit hyperactivity disorder), combined type F90.2 [facility] [address], [place] [address] Oct, [facility] [id number] [place] [address] Oct, [facility] [address], [place] [address] Oct, ADHD (attention deficit hyperactivity disorder), combined [...] index (BMI) of 32.0-32.9 in adult Z68.32 [place] [address] [place] [address] Sep, [facility] [address] [place] [address] Sep, Borderline personality disorder F60.3 [facility] [address], [place] [address] Aug, Borderline personality disorder F60.3 [facility] [address], [place] [address] Aug, [facility] [address] [place] [address] Jul, Borderline personality disorder F60.3 ; Autism spectrum disorder F84.0 ; Bipolar disorder, in partial remission, most recent episode manic F31.73 and ADHD (attention deficit hyperactivity disorder), combined type F90.2 [facility] [address] [facility] [id number] [address] Jul, [facility] [address] [place] [phone] Jul, Dental examination Z01.20 [facility] [address], [place] [address] Jun, [facility] [id number] [place] [address] May, [facility] [address] [place] [phone] May, Dental examination Z01.20 [facility] [id number] [place] [address] May, [facility] [id number] [place] [address] May, High risk medication use Z79.899 [facility] [address], [place] [address] May, [facility] [id number] [place] [address] May, [facility] [address], [place] [address] Apr, High risk medication use Z79.899 ; Borderline personality disorder F60.3 ; Autism spectrum disorder F84.0 ; Bipolar disorder, in partial remission, most recent episode manic F31.73 and ADHD (attention deficit hyperactivity disorder), combined type F90.2 [facility] [address], [place] [address] Apr, [facility] [id number] [address] Apr, [facility] [address], [place] [address] Apr, Chronic GERD K21.9 ; Chronic seasonal allergic rhinitis, unspecified trigger J30.2 ; Urinary incontinence, unspecified type R32 and Encounter for immunization Z23 [facility] [address] [facility] [id number] [place] [address] Mar, [facility] [address] [facility] [id number] [place] [address] 20 Mar, 2017 ADHD (attention deficit hyperactivity disorder), combined type F90.2 ; Bipolar disorder, in partial remission, most recent episode manic F31.73 ; Autism spectrum disorder F84.0 and Borderline personality disorder F60.3 IMMUNIZATIONS No Known Immunizations SOCIAL HISTORY Never Assessed REASON FOR VISIT focalin 01/22/2018 PLAN OF CARE VITAL SIGNS MEDICATIONS Medication Instructions Dosage Frequency Start Date End Date Duration Status Focalin 5 mg Orally at 3pm 1 tablet Jan, 28 days Active Focalin XR 30 MG Orally. NAME BRAND ONLY Once a day in morning 1 capsule Jan, 28 days Active Focalin 10 mg Orally at [...]
--- OUTSIDE RECORDS SUMMARY | 2019-01-09 22:48 | XMS REPORT ---
Author Author FREDRICKLIO JAY [facility] Address [address] [place] [address] Care Team Providers Care Band Saw Filer Name Role Phone LIO MAX Unavailable PROBLEMS Type Condition ICD9-CM Code IJA84-EP Code Onset Dates Condition Status SNOMED Code Problem Bipolar disorder, in partial remission, most recent episode manic F31.73 Active 41547789 Problem ADHD (attention deficit hyperactivity disorder), combined type F90.2 Active 07432886 Problem Autism spectrum disorder F84.0 Active 69161491 Problem Borderline personality disorder F60.3 Active 59553017 Problem Other obesity due to excess calories E66.09 Active 433461636 Problem Acne vulgaris L70.0 Active 28667105 Problem Urinary incontinence, unspecified type R32 Active 291773999 Problem Chronic seasonal allergic rhinitis, unspecified trigger J30.2 Active 933162876 Problem Body mass index (BMI) of 32.0-32.9 in adult Z68.32 Active 687712320 Problem Chronic GERD K21.9 Active 619854012 ALLERGIES Substance Reaction Event Type Date Status Phenergan hives Drug Allergy Jan, Active Depakote concentration problems Drug Allergy Jan, Active ENCOUNTERS Encounter Location Date Diagnosis [facility] [id number] [id number] Jun, [facility] [address] [address] Apr, [facility] [address] [address] Apr, [facility] [address] [address] Mar, ADHD (attention deficit hyperactivity disorder), combined type F90.2 [facility] [address] [address] Feb, ADHD (attention deficit hyperactivity disorder), combined type F90.2 [facility] [address] [address] Jan, ADHD (attention deficit hyperactivity disorder), combined type F90.2 ; Bipolar disorder, in partial remission, most recent episode manic F31.73 ; Borderline personality disorder F60.3 and Autism spectrum disorder F84.0 [facility] [address] [address] Jan, Acne vulgaris L70.0 [facility] [id number] [place] [address] Jan, [facility] [address] [place] [address] Dec, [facility] [address] [address] Dec, [facility] [address] [id number] Dec, Encounter for dental examination Z01.20 [facility] [address] [place] [address] Dec, ADHD (attention deficit hyperactivity disorder), combined type F90.2 ; Bipolar disorder, in partial remission, most recent episode manic F31.73 ; Borderline personality disorder F60.3 and Autism spectrum disorder F84.0 [facility] [address] [address] November, ADHD (attention deficit hyperactivity disorder), combined type F90.2 [facility] [address] [address] November, [facility] [address] [address] November, [facility] [address] [address] November, [place] [address] [address] Oct, Bipolar disorder, in partial remission, most recent episode manic F31.73 [place] [address] [place] [address] Oct, ADHD (attention deficit hyperactivity disorder), combined type F90.2 [facility] [id number] [place] [address] Oct, [facility] [id number] [place] [address] Oct, [facility] [id number] [place] [address] Oct, ADHD (attention deficit hyperactivity disorder), combined [...] index (BMI) of 32.0-32.9 in adult Z68.32 [facility] [address] [address] Sep, [facility] [id number] [place] [address] Sep, Borderline personality disorder F60.3 [facility] [address] [place] [address] Aug, Borderline personality disorder F60.3 [facility] [id number] [place] [address] Aug, [facility] [id number] [address] Jul, Borderline personality disorder F60.3 ; Autism spectrum disorder F84.0 ; Bipolar disorder, in partial remission, most recent episode manic F31.73 and ADHD (attention deficit hyperactivity disorder), combined type F90.2 [facility] [address] [id number] [address] Jul, [facility] [address] [id number] [id number] Jul, Dental examination Z01.20 [facility] [id number] [place] [address] Jun, [facility] [address] [id number] [place] [address] May, [facility] [id number] [place] [id number] May, Dental examination Z01.20 [facility] [id number] [place] [address] May, [facility] [id number] [place] [address] May, High risk medication use Z79.899 [facility] [id number] [place] [address] May, [facility] [id number] [place] [address] May, [facility] [address] [place] [address] Apr, High risk medication use Z79.899 ; Borderline personality disorder F60.3 ; Autism spectrum disorder F84.0 ; Bipolar disorder, in partial remission, most recent episode manic F31.73 and ADHD (attention deficit hyperactivity disorder), combined type F90.2 [facility] [id number] [place] [address] Apr, [facility] [id number] [place] [address] Apr, [facility] [id number] [place] [address], [place] [address] Apr, Chronic GERD K21.9 ; Chronic seasonal allergic rhinitis, unspecified trigger J30.2 ; Urinary incontinence, unspecified type R32 and Encounter for immunization Z23 [facility] [address] [facility] [id number] [place] [address] Mar, [facility] [address] [facility] [id number] [address] Mar, ADHD (attention deficit hyperactivity disorder), combined type F90.2 ; Bipolar disorder, in partial remission, most recent episode manic F31.73 ; Autism spectrum disorder F84.0 and Borderline personality disorder F60.3 IMMUNIZATIONS No Known Immunizations SOCIAL HISTORY Never Assessed REASON FOR VISIT f/u Arnol PLAN OF CARE Activity Details Follow Up 3 Months Reason: VITAL SIGNS Height 5'7" in 2018-02-09 Weight 218.8 lbs 2018-02-09 Heart Rate 96 bpm 2018-02-09 Respiratory Rate 20 2018-02-09 BMI 34.27 kg/m2 2018-02-09 Blood pressure systolic 138 mmHg 2018-02-09 Blood pressure diastolic 86 mmHg 2018-02-09 MEDICATIONS Medication Instructions Dosage Frequency Start Date End Date Duration Status Trileptal 600 MG 1 TABLET TWICE A DAY ORALLY 30 DAYS Active Singulair 10 mg Orally Once a day 1 tablet in the evening 24h Active Guanfacine HCl 1 MG 1 TABLET 3 TIMES A DAY AT 7AM, 11 AM AND 630PM ORALLY 30 DAYS Active Perphenazine 8 MG Orally Twice a day 1 tablet 12h Active Cetirizine HCl 10 mg Orally Once a day 1 tablet 24h Oct, Jun, 90 days Active Incontinence Supplies - as directed Apr, Active Pantoprazole Sodium 40 mg Orally Once a day 1 tablet 24h Apr, Active DiphenhydrAMINE HCl 50 MG 2 CAPSULES AT BEDTIME NEEDED FOR SLEEP ORALLY 30 DAYS Active Focalin XR 30 MG Orally. NAME BRAND ONLY Once a day in morning 1 capsule Jan, Active Focalin 10 mg Orally at 10am and 3pm 1 tablet Jan, Active Docusate Sodium 100 MG Orally Once a day 1 capsule as needed 24h Active Focalin 5 mg Orally at 3pm 1 tablet Jan, Active FluvoxaMINE Maleate ER 150 MG Orally at bedtime 2 capsules Active Sonata 10 mg 1 CAPSULE AT BEDTIME NEEDED ONCE A DAY ORALLY 30 DAYS Active Benztropine Mesylate 2 MG Orally at bedtime 1 tablet Active Minocycline HCl 100 mg Orally every 12 hrs 1 capsule 12h 30 Active Fanapt 12 MG 1 TABLET TWICE A DAY ORALLY 30 DAYS Active RESULTS No Results PROCEDURES No Known [...]
--- OUTSIDE RECORDS SUMMARY | 2019-01-09 22:48 | XMS REPORT ---
Author Author MANSOOR LIO [facility] Address [address] [place] [address] Care Team Providers Care Wood Mechanist Name Role Phone FREDRICKMART JAYA Unavailable PROBLEMS Type Condition ICD9-CM Code QWA76-ZI Code Onset Dates Condition Status SNOMED Code Problem Bipolar disorder, in partial remission, most recent episode manic F31.73 Active 49056956 Problem ADHD (attention deficit hyperactivity disorder), combined type F90.2 Active 07981241 Problem Autism spectrum disorder F84.0 Active 13732498 Problem Borderline personality disorder F60.3 Active 19672296 Problem Other obesity due to excess calories E66.09 Active 947641753 Problem Acne vulgaris L70.0 Active 11041760 Problem Urinary incontinence, unspecified type R32 Active 215955725 Problem Chronic seasonal allergic rhinitis, unspecified trigger J30.2 Active 592096742 Problem Body mass index (BMI) of 32.0-32.9 in adult Z68.32 Active 403115709 Problem Chronic GERD K21.9 Active 657241488 ALLERGIES No Information ENCOUNTERS Encounter Location Date Diagnosis [facility] [id number] [id number] Jun, [facility] [id number] [place] [address] Apr, [facility] [address] [place] [address] Apr, [facility] [id number] [place] [address] Feb, ADHD (attention deficit hyperactivity disorder), combined type F90.2 [facility] [address] [place] [address] Jan, ADHD (attention deficit hyperactivity disorder), combined type F90.2 ; Bipolar disorder, in partial remission, most recent episode manic F31.73 ; Borderline personality disorder F60.3 and Autism spectrum disorder F84.0 [facility] [address] [place] [address] Jan, Acne vulgaris L70.0 [facility] [address] [place] [address] Jan, [facility] [id number] [place] [address] Dec, [facility] [address] [place] [address] Dec, [facility] [id number] [place] [id number] Dec, Encounter for dental examination Z01.20 [facility] [id number] [place] [address] Dec, ADHD (attention deficit hyperactivity disorder), combined type F90.2 ; Bipolar disorder, in partial remission, most recent episode manic F31.73 ; Borderline personality disorder F60.3 and Autism spectrum disorder F84.0 [facility] [address] [place] [address] November, ADHD (attention deficit hyperactivity disorder), combined type F90.2 [facility] [address], [place] [address] November, [facility] [id number] [place] [address] November, [facility] [address], [place] [address] November, [facility] [id number] [place] [address] Oct, Bipolar disorder, in partial remission, most recent episode manic F31.73 [facility] [address] [place] [address] Oct, ADHD (attention deficit hyperactivity disorder), combined type F90.2 [facility] [address], [place] [address] Oct, [facility] [address], [place] [address] Oct, [facility] [address], [place] [address] Oct, ADHD (attention deficit hyperactivity disorder), combined [...] index (BMI) of 32.0-32.9 in adult Z68.32 [facility] [address], [place] [address] Sep, [facility] [address], [place] [address] Sep, Borderline personality disorder F60.3 [facility] [address], [place] [address] Aug, Borderline personality disorder F60.3 [facility] [address], [place] [address] Aug, [facility] [address], [place] [address] Jul, Borderline personality disorder F60.3 ; Autism spectrum disorder F84.0 ; Bipolar disorder, in partial remission, most recent episode manic F31.73 and ADHD (attention deficit hyperactivity disorder), combined type F90.2 [facility] [address], [place] [address] Jul, [facility] [address] [facility] [id number] [id number] Jul, Dental examination Z01.20 [facility] [id number] [place] [address] Jun, [facility] [id number] [place] [address] May, [facility] [address] [place] [id number] May, Dental examination Z01.20 [facility] [id number] [place] [address] May, [facility] [id number] [place] [address] May, High risk medication use Z79.899 [facility] [id number] [place] [address] May, [facility] [id number] [place] [address] May, [facility] [id number] [place] [address] Apr, High risk medication use Z79.899 ; Borderline personality disorder F60.3 ; Autism spectrum disorder F84.0 ; Bipolar disorder, in partial remission, most recent episode manic F31.73 and ADHD (attention deficit hyperactivity disorder), combined type F90.2 [facility] [address] [place] [address] Apr, [facility] [id number] [place] [address] Apr, [facility] [id number] [place] [address] Apr, Chronic GERD K21.9 ; Chronic seasonal allergic rhinitis, unspecified trigger J30.2 ; Urinary incontinence, unspecified type R32 and Encounter for immunization Z23 [facility] [id number] [place] [address] Mar, [facility] [address] [facility] [id number] [place] [address] Mar, ADHD (attention deficit hyperactivity disorder), combined [...]
--- OUTSIDE RECORDS SUMMARY | 2019-01-09 22:49 | XMS REPORT ---
Author Author FREDRICKLIO JAY [facility] Address [address] [place] [address] Care Team Providers Care Chairman & Ceo Name Role Phone LIO MAX Unavailable PROBLEMS Type Condition ICD9-CM Code YGV84-MU Code Onset Dates Condition Status SNOMED Code Problem Bipolar disorder, in partial remission, most recent episode manic F31.73 Active 79700999 Problem ADHD (attention deficit hyperactivity disorder), combined type F90.2 Active 11377221 Problem Autism spectrum disorder F84.0 Active 70372100 Problem Borderline personality disorder F60.3 Active 41310490 Problem Other obesity due to excess calories E66.09 Active 821708590 Problem Acne vulgaris L70.0 Active 64408504 Problem Urinary incontinence, unspecified type R32 Active 480413845 Problem Chronic seasonal allergic rhinitis, unspecified trigger J30.2 Active 738043720 Problem Body mass index (BMI) of 32.0-32.9 in adult Z68.32 Active 381423083 Problem Chronic GERD K21.9 Active 595260362 ALLERGIES No Information ENCOUNTERS Encounter Location Date Diagnosis [facility] [id number] [id number] Jun, [facility] [address] [place] [address] Apr, [facility] [id number] [place] [address] Jan, ADHD (attention deficit hyperactivity disorder), combined type F90.2 ; Bipolar disorder, in partial remission, most recent episode manic F31.73 ; Borderline personality disorder F60.3 and Autism spectrum disorder F84.0 [facility] [address], [place] [address] Jan, Acne vulgaris L70.0 [facility] [address], [place] [address] Jan, [facility] [id number] [place] [address] Dec, [facility] [address], [place] [address] Dec, [facility] [address] [id number] Dec, Encounter for dental examination Z01.20 [facility] [id number] [place] [address] Dec, ADHD (attention deficit hyperactivity disorder), combined type F90.2 ; Bipolar disorder, in partial remission, most recent episode manic F31.73 ; Borderline personality disorder F60.3 and Autism spectrum disorder F84.0 [facility] [id number] [place] [address] November, ADHD (attention deficit hyperactivity disorder), combined type F90.2 [facility] [address], [place] [address] November, [facility] [id number] [place] [address] November, [facility] [address], [place] [address] November, [facility] [address], [place] [address] Oct, Bipolar disorder, in partial remission, most recent episode manic F31.73 [facility] [address], [place] [address] Oct, ADHD (attention deficit hyperactivity disorder), combined type F90.2 [facility] [address]100[place], [place] [address] Oct, [facility] [address], [place] [address] Oct, [facility] [address] [place] [address] Oct, ADHD (attention deficit hyperactivity disorder), combined [...] index (BMI) of 32.0-32.9 in adult Z68.32 [facility] [id number] [place] [address] Sep, [facility] [id number] [place] [address] Sep, Borderline personality disorder F60.3 [facility] [id number] [place] [address] Aug, Borderline personality disorder F60.3 [facility] [id number] [place] [address] Aug, [facility] [id number] [place] [address] Jul, Borderline personality disorder F60.3 ; Autism spectrum disorder F84.0 ; Bipolar disorder, in partial remission, most recent episode manic F31.73 and ADHD (attention deficit hyperactivity disorder), combined type F90.2 [facility] [address] [place] [address] Jul, [facility] [id number] [place] [id number] Jul, Dental examination Z01.20 [facility] [address] [place] [address] Jun, [facility] [id number] [place] [address] May, [facility] [address] [facility] [id number] [id number] May, Dental examination Z01.20 [facility] [address], [place] [address] May, [facility] [address], [place] [address] May, High risk medication use Z79.899 [facility] [address], [place] [address] May, [facility] [address] [place] [address] May, [facility] [address], [place] [address] Apr, High risk medication use Z79.899 ; Borderline personality disorder F60.3 ; Autism spectrum disorder F84.0 ; Bipolar disorder, in partial remission, most recent episode manic F31.73 and ADHD (attention deficit hyperactivity disorder), combined type F90.2 [facility] [address], [place] [address] Apr, [facility] [address], [place] [address] Apr, [facility] [address] [place] [address] Apr, Chronic GERD K21.9 ; Chronic seasonal allergic rhinitis, unspecified trigger J30.2 ; Urinary incontinence, unspecified type R32 and Encounter for immunization Z23 [facility] [address], [place] [address] Mar, [facility] [address] [place] [address] Mar, ADHD (attention deficit hyperactivity disorder), combined type F90.2 ; Bipolar disorder, in partial remission, most recent episode manic F31.73 ; Autism spectrum disorder F84.0 and Borderline personality disorder F60.3 IMMUNIZATIONS No Known Immunizations SOCIAL HISTORY Never Assessed REASON FOR VISIT PA PLAN OF CARE VITAL SIGNS MEDICATIONS Unknown [...]
--- OUTSIDE RECORDS SUMMARY | 2019-01-09 22:49 | XMS REPORT ---
Author Author [facility] Address [address] [place] [address] Care Team Providers Care Director Specialty Name Role Phone LIO MAX Unavailable PROBLEMS Type Condition ICD9-CM Code [id number] Code Onset Dates Condition Status SNOMED Code Problem Bipolar disorder, in partial remission, most recent episode manic F31.73 Active 01844469 Problem ADHD (attention deficit hyperactivity disorder), combined type F90.2 Active 19538415 Problem Autism spectrum disorder F84.0 Active 04960584 Problem Borderline personality disorder F60.3 Active 48698987 Problem Other obesity due to excess calories E66.09 Active 571430426 Problem Acne vulgaris L70.0 Active 38026924 Problem Urinary incontinence, unspecified type R32 Active 904118535 Problem Chronic seasonal allergic rhinitis, unspecified trigger J30.2 Active 416676905 Problem Body mass index (BMI) of 32.0-32.9 in adult Z68.32 Active 472638238 Problem Chronic GERD K21.9 Active 001413351 ALLERGIES Substance Reaction Event Type Date Status Phenergan hives Drug Allergy Dec, Active Depakote concentration problems Drug Allergy Dec, Active ENCOUNTERS Encounter Location Date Diagnosis [facility] [id number] [id number] Jun, [facility] [address] [address] Apr, [facility] [address] [address] Apr, [facility] [address] [address] Feb, ADHD (attention deficit hyperactivity disorder), combined type F90.2 [facility] [address] [address] Jan, ADHD (attention deficit hyperactivity disorder), combined type F90.2 ; Bipolar disorder, in partial remission, most recent episode manic F31.73 ; Borderline personality disorder F60.3 and Autism spectrum disorder F84.0 [facility] [address] [address] Jan, Acne vulgaris L70.0 [facility] [id number] [place] [address] Jan, [facility] [address] [place] [address] Dec, [facility] [address] [place] [address] Dec, [facility] [address] [place] [phone] Dec, Encounter for dental examination Z01.20 [facility] [address] [place] [address] Dec, ADHD (attention deficit hyperactivity disorder), combined type F90.2 ; Bipolar disorder, in partial remission, most recent episode manic F31.73 ; Borderline personality disorder F60.3 and Autism spectrum disorder F84.0 [facility] [address] [address] November, ADHD (attention deficit hyperactivity disorder), combined type F90.2 [facility] [address] [address] November, [facility] [address] [address] November, [facility] [address] [place] [address] November, [facility] [address] [address] Oct, Bipolar disorder, in partial remission, most recent episode manic F31.73 [facility] [address] [address] Oct, ADHD (attention deficit hyperactivity disorder), combined type F90.2 [facility] [address] [address] Oct, [facility] [id number] [address] Oct, [facility] [id number] [place] [address] Oct, ADHD (attention deficit hyperactivity disorder), combined [...] index (BMI) of 32.0-32.9 in adult Z68.32 [address] [address] [address] Sep, [place] [id number] [place] [address] Sep, Borderline personality disorder F60.3 [place] [address] [address] Aug, Borderline personality disorder F60.3 [facility] [address] [address] Aug, [place] [address] [place] [address] Jul, Borderline personality disorder F60.3 ; Autism spectrum disorder F84.0 ; Bipolar disorder, in partial remission, most recent episode manic F31.73 and ADHD (attention deficit hyperactivity disorder), combined type F90.2 [place] [address] [place] [address] Jul, [facility] [address] [id number] Jul, Dental examination Z01.20 [facility] [address] [address] Jun, [facility] [address] [address] May, [facility] [id number] [place] [phone] May, Dental examination Z01.20 [facility] [id number] [place] [address] May, [facility] [id number] [place] [address] May, High risk medication use Z79.899 [facility] [id number] [place] [address] May, [facility] [address] [place] [address] May, [facility] [id number] [place] [address] Apr, High risk medication use Z79.899 ; Borderline personality disorder F60.3 ; Autism spectrum disorder F84.0 ; Bipolar disorder, in partial remission, most recent episode manic F31.73 and ADHD (attention deficit hyperactivity disorder), combined type F90.2 [facility] [address] [address] Apr, [facility] [id number] [place] [address] Apr, [facility] [address] [address] Apr, Chronic GERD K21.9 ; Chronic seasonal allergic rhinitis, unspecified trigger J30.2 ; Urinary incontinence, unspecified type R32 and Encounter for immunization Z23 [facility] [address] [facility] [id number] [address] Mar, [facility] [address] [facility] [id number] [place] [address] Mar, ADHD (attention deficit hyperactivity disorder), combined type F90.2 ; Bipolar disorder, in partial remission, most recent episode manic F31.73 ; Autism spectrum disorder F84.0 and Borderline personality disorder F60.3 IMMUNIZATIONS No Known Immunizations SOCIAL HISTORY Never Assessed REASON FOR VISIT lupis Wilder MA PLAN OF CARE Activity Details Follow Up 2 Months, prn Reason: VITAL SIGNS Height 5'7" in 2017-12-15 Weight 210 lbs 2017-12-15 Heart Rate 120 bpm 2017-12-15 Respiratory Rate 20 2017-12-15 BMI 32.89 kg/m2 2017-12-15 Blood pressure systolic 135 mmHg 2017-12-15 Blood pressure diastolic 68 mmHg 2017-12-15 MEDICATIONS Medication Instructions Dosage Frequency Start Date End Date Duration Status Singulair 10 mg Orally Once a day 1 tablet in the evening 24h Active Fanapt 12 MG 1 TABLET TWICE A DAY ORALLY 30 DAYS Active Benztropine Mesylate 2 MG Orally at bedtime 1 tablet Active Cetirizine HCl 10 mg Orally Once a day 1 tablet 24h Oct, Jun, 90 days Active DiphenhydrAMINE HCl 50 MG 2 CAPSULES AT BEDTIME NEEDED FOR SLEEP ORALLY 30 DAYS Active Guanfacine HCl 1 MG 1 TABLET 3 TIMES A DAY AT 7AM, 11 AM AND 630PM ORALLY 30 DAYS Active Trileptal 600 MG 1 TABLET TWICE A DAY ORALLY 30 DAYS Active FluvoxaMINE Maleate ER 150 MG Orally at bedtime 2 capsules Active Incontinence Supplies - as directed Apr, Active Sonata 10 mg Orally Once a day 1 capsule at bedtime as needed 24h Active Focalin 5 mg Orally at 3pm 1 tablet November, Active Minocycline HCl 100 mg Orally every 12 hrs 1 capsule 12h Oct, Jan, 30 days Active Pantoprazole Sodium 40 mg Orally Once a day 1 tablet 24h Apr, Active Focalin XR 30 MG Orally Once a day in morning 1 capsule November, Active Perphenazine 8 MG Orally Twice a day 1 tablet 12h Active Focalin 10 mg Orally at 10am and 3pm 1 tablet November, Active RESULTS No Results PROCEDURES No Known [...]
--- OUTSIDE RECORDS SUMMARY | 2019-01-09 22:49 | XMS REPORT ---
Author Author [facility] Address [address] [place] [address] Care Team Providers Care Cattle Rancher Name Role Phone FREDRICKLIO JAY Unavailable PROBLEMS Type Condition ICD9-CM Code IBN71-UW Code Onset Dates Condition Status SNOMED Code Problem Bipolar disorder, in partial remission, most recent episode manic F31.73 Active 17130428 Problem ADHD (attention deficit hyperactivity disorder), combined type F90.2 Active 42847607 Problem Autism spectrum disorder F84.0 Active 99231840 Problem Borderline personality disorder F60.3 Active 24287303 Problem Other obesity due to excess calories E66.09 Active 955064222 Problem Acne vulgaris L70.0 Active 49132097 Problem Urinary incontinence, unspecified type R32 Active 962583961 Problem Chronic seasonal allergic rhinitis, unspecified trigger J30.2 Active 104776211 Problem Body mass index (BMI) of 32.0-32.9 in adult Z68.32 Active 547951538 Problem Chronic GERD K21.9 Active 003818507 ALLERGIES No Information ENCOUNTERS Encounter Location Date Diagnosis [facility] [id number] [phone] Jun, [facility] [id number] [place] [address] Apr, [facility] [address] [place] [address] Apr, [facility] [id number] [place] [address] Feb, ADHD (attention deficit hyperactivity disorder), combined type F90.2 [facility] [address] [place] [address] Jan, ADHD (attention deficit hyperactivity disorder), combined type F90.2 ; Bipolar disorder, in partial remission, most recent episode manic F31.73 ; Borderline personality disorder F60.3 and Autism spectrum disorder F84.0 [facility] [address] [place] [address] Jan, Acne vulgaris L70.0 [facility] [address] [place] [address] Jan, [facility] [id number] [place] [address] Dec, [facility] [address] [place] [address] Dec, [facility] [id number] [place] [phone] Dec, Encounter for dental examination Z01.20 [facility] [id number] [place] [address] Dec, ADHD (attention deficit hyperactivity disorder), combined type F90.2 ; Bipolar disorder, in partial remission, most recent episode manic F31.73 ; Borderline personality disorder F60.3 and Autism spectrum disorder F84.0 [facility] [address] [place] [address] November, ADHD (attention deficit hyperactivity disorder), combined type F90.2 [facility] [address] [address] November, [facility] [id number] [place] [address] November, [facility] [address] [address] November, [facility] [id number] [place] [address] Oct, Bipolar disorder, in partial remission, most recent episode manic F31.73 [facility] [address] [place] [address] Oct, ADHD (attention deficit hyperactivity disorder), combined type F90.2 [facility] [address] [address] Oct, [facility] [address] [address] Oct, [facility] [address] [address] Oct, ADHD (attention deficit hyperactivity disorder), combined [...] index (BMI) of 32.0-32.[address] [facility] [address] [address] Sep, [facility] [address] [address] Sep, Borderline personality disorder F60.3 [facility] [address] [address] Aug, Borderline personality disorder F60.3 [facility] [address] [address] Aug, [facility] [address] [address] Jul, Borderline personality disorder F60.3 ; Autism spectrum disorder F84.0 ; Bipolar disorder, in partial remission, most recent episode manic F31.73 and ADHD (attention deficit hyperactivity disorder), combined type F90.2 [facility] [address] [address] Jul, [facility] [address] [facility] [id number] [id number] Jul, Dental examination Z01.20 [facility] [id number] [place] [address] Jun, [facility] [id number] [place] [address] May, [facility] [address] [place] [phone] May, Dental examination Z01.20 [facility] [id number] [place] [address] May, [facility] [id number] [place] [address] May, High risk medication use Z79.899 [facility] [id number] [place] [address] May, [facility] [id number] [place] [address] May, [facility] [id number] [place] [address] Apr, High risk medication use Z79.899 ; Borderline personality disorder F60.3 ; Autism spectrum disorder F84.0 ; Bipolar disorder, in partial remission, most recent episode manic F31.73 and ADHD (attention deficit hyperactivity disorder), combined type F90.2 [facility] [address] [place] [address] Apr, [facility] [id number] [place] [address] Apr, [facility] [id number] [place] [address] Apr, Chronic GERD K21.9 ; Chronic seasonal allergic rhinitis, unspecified trigger J30.2 ; Urinary incontinence, unspecified type R32 and Encounter for immunization Z23 [facility] [id number] [place] [address] Mar, [facility] [address] [facility] [id number] [place] [address] Mar, ADHD (attention deficit hyperactivity disorder), combined type F90.2 ; Bipolar disorder, in partial remission, most recent episode manic F31.73 ; Autism spectrum disorder F84.0 and Borderline personality disorder F60.3 IMMUNIZATIONS No Known Immunizations SOCIAL HISTORY Never Assessed REASON FOR VISIT focalin 12/01/2017 PLAN OF CARE VITAL SIGNS MEDICATIONS Medication Instructions Dosage Frequency Start Date End Date Duration Status Focalin 10 mg Orally at 10am and 3pm 1 tablet November, 28 days Active Focalin 5 mg Orally at 3pm 1 tablet November, 28 days Active Focalin XR 30 MG Orally Once a day in morning 1 capsule November, 28 days Active RESULTS No Results PROCEDURES [...]
--- OUTSIDE RECORDS SUMMARY | 2019-01-09 22:49 | XMS REPORT ---
Author Author MANSOOR LIO [facility] Address [address] [place] [address] Care Team Providers Care Metalizer Name Role Phone FREDRICKMART JAYA Unavailable PROBLEMS Type Condition ICD9-CM Code IZO86-QE Code Onset Dates Condition Status SNOMED Code Problem Bipolar disorder, in partial remission, most recent episode manic F31.73 Active 43790011 Problem ADHD (attention deficit hyperactivity disorder), combined type F90.2 Active 38474985 Problem Autism spectrum disorder F84.0 Active 41052233 Problem Borderline personality disorder F60.3 Active 55117187 Problem Other obesity due to excess calories E66.09 Active 762030093 Problem Acne vulgaris L70.0 Active 66747477 Problem Urinary incontinence, unspecified type R32 Active 266180935 Problem Chronic seasonal allergic rhinitis, unspecified trigger J30.2 Active 258440277 Problem Body mass index (BMI) of 32.0-32.9 in adult Z68.32 Active 028203877 Problem Chronic GERD K21.9 Active 118298827 ALLERGIES No Information ENCOUNTERS Encounter Location Date Diagnosis [facility] [id number] [id number] Jun, [facility] [id number] [place] [address] Apr, [facility] [address] [place] [address] Apr, [facility] [id number] [place] [address] Feb, ADHD (attention deficit hyperactivity disorder), combined type F90.2 [facility] [address] [place] [address] Jan, ADHD (attention deficit hyperactivity disorder), combined type F90.2 ; Bipolar disorder, in partial remission, most recent episode manic F31.73 ; Borderline personality disorder F60.3 and Autism spectrum disorder F84.0 [facility] [address] [place] [address] Jan, Acne vulgaris L70.0 [facility] [address] [place] [address] Jan, [facility] [id number] [place] [address] Dec, [facility] [address] [place] [address] Dec, [facility] [id number] [place] [phone] Dec, Encounter for dental examination Z01.20 [facility] [id number] [place] [address] Dec, ADHD (attention deficit hyperactivity disorder), combined type F90.2 ; Bipolar disorder, in partial remission, most recent episode manic F31.73 ; Borderline personality disorder F60.3 and Autism spectrum disorder F84.0 [facility] [address] [place] [address] November, ADHD (attention deficit hyperactivity disorder), combined type F90.2 [facility] [address], [place] [address] November, [facility] [id number] [place] [address] November, [facility] [address], [place] [address] November, [facility] [id number] [place] [address] Oct, Bipolar disorder, in partial remission, most recent episode manic F31.73 [facility] [address] [place] [address] Oct, ADHD (attention deficit hyperactivity disorder), combined type F90.2 [facility] [address], [place] [address] Oct, [facility] [address], [place] [address] Oct, [facility] [address], [place] [address] Oct, ADHD (attention deficit hyperactivity disorder), combined [...] index (BMI) of 32.0-32.9 in adult Z68.32 [facility] [address], [place] [address] Sep, [facility] [address], [place] [address] Sep, Borderline personality disorder F60.3 [facility] [address], [place] [address] Aug, Borderline personality disorder F60.3 [facility] [address], [place] [address] Aug, [facility] [address], [place] [address] Jul, Borderline personality disorder F60.3 ; Autism spectrum disorder F84.0 ; Bipolar disorder, in partial remission, most recent episode manic F31.73 and ADHD (attention deficit hyperactivity disorder), combined type F90.2 [facility] [address], [place] [address] Jul, [facility] [address] [facility] [id number] [id number] Jul, Dental examination Z01.20 [facility] [id number] [place] [address] Jun, [facility] [id number] [place] [address] May, [facility] [address] [place] [phone] May, Dental examination Z01.20 [facility] [id number] [place] [address] May, [facility] [id number] [place] [address] May, High risk medication use Z79.899 [facility] [id number] [place] [address] May, [facility] [id number] [place] [address] May, [facility] [id number] [place] [address] Apr, High risk medication use Z79.899 ; Borderline personality disorder F60.3 ; Autism spectrum disorder F84.0 ; Bipolar disorder, in partial remission, most recent episode manic F31.73 and ADHD (attention deficit hyperactivity disorder), combined type F90.2 [facility] [address] [place] [address] Apr, [facility] [id number] [place] [address] Apr, [facility] [id number] [place] [address] Apr, Chronic GERD K21.9 ; Chronic seasonal allergic rhinitis, unspecified trigger J30.2 ; Urinary incontinence, unspecified type R32 and Encounter for immunization Z23 [facility] [id number] [place] [address] Mar, [facility] [address] [facility] [id number] [place] [address] Mar, ADHD (attention deficit hyperactivity disorder), combined type F90.2 ; Bipolar disorder, in partial remission, most recent episode manic F31.73 ; Autism spectrum disorder F84.0 and Borderline personality disorder F60.3 IMMUNIZATIONS No Known Immunizations SOCIAL HISTORY Never Assessed REASON FOR VISIT Focalin 12/29/17 PLAN OF CARE VITAL SIGNS MEDICATIONS Medication Instructions Dosage Frequency Start Date End Date Duration Status Focalin 5 mg Orally at 3pm 1 tablet Dec, 28 days Active Focalin XR 30 MG Orally. NAME BRAND ONLY Once a day in morning 1 capsule Dec, 28 days Active Focalin 10 mg Orally at 10am and 3pm 1 tablet Dec, 28 days Active RESULTS No Results PROCEDURES [...]
--- OUTSIDE RECORDS SUMMARY | 2019-01-09 22:49 | XMS REPORT ---
Author Author FREDRICKLIO JAY [facility] Address [address] [place] [address] Care Team Providers Care Regional Marketing Manager Name Role Phone LIO MAX Unavailable PROBLEMS Type Condition ICD9-CM Code NYM14-MQ Code Onset Dates Condition Status SNOMED Code Problem Bipolar disorder, in partial remission, most recent episode manic F31.73 Active 72280011 Problem ADHD (attention deficit hyperactivity disorder), combined type F90.2 Active 92923131 Problem Autism spectrum disorder F84.0 Active 60763682 Problem Borderline personality disorder F60.3 Active 97487724 Problem Other obesity due to excess calories E66.09 Active 032745415 Problem Acne vulgaris L70.0 Active 89580764 Problem Urinary incontinence, unspecified type R32 Active 611752923 Problem Chronic seasonal allergic rhinitis, unspecified trigger J30.2 Active 180516086 Problem Body mass index (BMI) of 32.0-32.9 in adult Z68.32 Active 102180381 Problem Chronic GERD K21.9 Active 490857216 ALLERGIES No Information ENCOUNTERS Encounter Location Date Diagnosis [facility] [id number] [id number] Jun, [facility] [address] [place] [address] Apr, [facility] [id number] [place] [address] Jan, ADHD (attention deficit hyperactivity disorder), combined type F90.2 ; Bipolar disorder, in partial remission, most recent episode manic F31.73 ; Borderline personality disorder F60.3 and Autism spectrum disorder F84.0 [facility] [address] [address] Jan, Acne vulgaris L70.0 [facility] [address] [address] Jan, [facility] [id number] [place] [address] Dec, [facility] [address], [place] [address] Dec, [facility] [address] [id number] Dec, Encounter for dental examination Z01.20 [facility] [id number] [place] [address] Dec, ADHD (attention deficit hyperactivity disorder), combined type F90.2 ; Bipolar disorder, in partial remission, most recent episode manic F31.73 ; Borderline personality disorder F60.3 and Autism spectrum disorder F84.0 [facility] [id number] [place] [address] November, ADHD (attention deficit hyperactivity disorder), combined type F90.2 [facility] [address], [place] [address] November, [facility] [id number] [place] [address] November, [facility] [address], [place] [address] November, [facility] [address] [address] Oct, Bipolar disorder, in partial remission, most recent episode manic F31.73 [facility] [address], [place] [address] Oct, ADHD (attention deficit hyperactivity disorder), combined type F90.2 [facility] [address], [place] [address] Oct, [facility] [address], [place] [address] Oct, [facility] [address] [place] [address] Oct, ADHD (attention deficit hyperactivity disorder), combined [...] index (BMI) of 32.0-32.9 in adult Z68.32 [facility] [id number] [place] [address] Sep, [facility] [id number] [place] [address] Sep, Borderline personality disorder F60.3 [facility] [id number] [place] [address] Aug, Borderline personality disorder F60.3 [facility] [id number] [place] [address] Aug, [facility] [id number] [place] [address] Jul, Borderline personality disorder F60.3 ; Autism spectrum disorder F84.0 ; Bipolar disorder, in partial remission, most recent episode manic F31.73 and ADHD (attention deficit hyperactivity disorder), combined type F90.2 [facility] [address] [place] [address] Jul, [facility] [id number] [place] [id number] Jul, Dental examination Z01.20 [facility] [address] [place] [address] Jun, [facility] [id number] [place] [address] May, [facility] [address] [facility] [id number] [id number] May, Dental examination Z01.20 [facility] [address], [place] [address] May, [facility] [address], [place] [address] May, High risk medication use Z79.899 [facility] [address], [place] [address] May, [facility] [address] [place] [address] May, [facility] [address], [place] [address] Apr, High risk medication use Z79.899 ; Borderline personality disorder F60.3 ; Autism spectrum disorder F84.0 ; Bipolar disorder, in partial remission, most recent episode manic F31.73 and ADHD (attention deficit hyperactivity disorder), combined type F90.2 [facility] [address], [place] [address] Apr, [facility] [address], [place] [address] Apr, [facility] [address] [place] [address] Apr, Chronic GERD K21.9 ; Chronic seasonal allergic rhinitis, unspecified trigger J30.2 ; Urinary incontinence, unspecified type R32 and Encounter for immunization Z23 [facility] [address], [place] [address] Mar, [facility] [address] [place] [address] Mar, ADHD (attention deficit hyperactivity disorder), combined type F90.2 ; Bipolar disorder, in partial remission, most recent episode manic F31.73 ; Autism spectrum disorder F84.0 and Borderline personality disorder F60.3 IMMUNIZATIONS No Known Immunizations SOCIAL HISTORY Never Assessed REASON FOR VISIT Fluvoxamine ROMAN Approval PLAN OF CARE VITAL SIGNS MEDICATIONS Unknown [...]
--- OUTSIDE RECORDS SUMMARY | 2019-01-09 22:50 | XMS REPORT ---
Author Author LEANDROWALLACESAMANTHA [facility] Address [address] [place] [address] Care Team Providers Care Youth Teacher Name Role Phone SAMANTHA REEVES Unavailable PROBLEMS Type Condition ICD9-CM Code TQB47-PD Code Onset Dates Condition Status SNOMED Code Problem Bipolar disorder, in partial remission, most recent episode manic F31.73 Active 75719279 Problem ADHD (attention deficit hyperactivity disorder), combined type F90.2 Active 36666557 Problem Autism spectrum disorder F84.0 Active 61969280 Problem Borderline personality disorder F60.3 Active 83704270 Problem Other obesity due to excess calories E66.09 Active 443226087 Problem Acne vulgaris L70.0 Active 86632854 Problem Urinary incontinence, unspecified type R32 Active 425343681 Problem Chronic seasonal allergic rhinitis, unspecified trigger J30.2 Active 595512801 Problem Body mass index (BMI) of 32.0-32.9 in adult Z68.32 Active 664531087 Problem Chronic GERD K21.9 Active 767716493 ALLERGIES Substance Reaction Event Type Date Status Phenergan hives Drug Allergy Oct, Active Depakote concentration problems Drug Allergy Oct, Active ENCOUNTERS Encounter Location Date Diagnosis [facility] [address] [facility] [id number] [id number] Jun, [facility] [address] [address] Jan, [facility] [address], [place] [address] Jan, [facility] [address], [place] [address] Jan, [facility] [id number], [place] [address] Dec, [facility] [address], [place] [address] Dec, [facility] [address] [id number] Dec, Encounter for dental examination Z01.20 [facility] [address], [place] [address] 04 Dec, 2017 ADHD (attention deficit hyperactivity disorder), combined type F90.2 ; Bipolar disorder, in partial remission, most recent episode manic F31.73 ; Borderline personality disorder F60.3 and Autism spectrum disorder F84.0 [facility] [address] [place] [address] November, ADHD (attention deficit hyperactivity disorder), combined type F90.2 [facility] [address], [place] [address] November, [facility] [address] [place] [address] November, [facility] [id number], [place] [address] November, [facility] [address], [place] [address] Oct, Bipolar disorder, in partial remission, most recent episode manic F31.73 [facility] [address], [place] [address] Oct, ADHD (attention deficit hyperactivity disorder), combined type F90.2 [facility] [id number], [place] [address] Oct, [facility] [id number], [place] [address] Oct, [facility] [id number], [place] [address] Oct, ADHD (attention deficit hyperactivity disorder), combined [...] index (BMI) of 32.0-32.9 in adult Z68.32 [address] [address] Sep, [id number] [place] [address] Sep, Borderline personality disorder F60.3 [address] [address] Aug, Borderline personality disorder F60.3 [address] [id number] [place] [address] Aug, [facility] [id number] [place] [address] Jul, Borderline personality disorder F60.3 ; Autism spectrum disorder F84.0 ; Bipolar disorder, in partial remission, most recent episode manic F31.73 and ADHD (attention deficit hyperactivity disorder), combined type F90.2 [address] [place] [id number] [place] [address] Jul, [facility] [id number] [place] [phone] Jul, Dental examination Z01.20 [facility] [id number] [place] [address] Jun, [address] [address] May, [facility] [id number] [place] [id number] May, Dental examination Z01.20 [facility] [address] [place] [address] May, [address] [place] [address] May, High risk medication use Z79.899 [facility] [id number] [place] [address] May, [id number] [place] [address] May, [id number] [place] [address] Apr, High risk medication use Z79.899 ; Borderline personality disorder F60.3 ; Autism spectrum disorder F84.0 ; Bipolar disorder, in partial remission, most recent episode manic F31.73 and ADHD (attention deficit hyperactivity disorder), combined type F90.2 [address] [id number] [place] [address] Apr, [address] [id number] [place] [address] Apr, [address] [id number] [place] [address] Apr, Chronic GERD K21.9 ; Chronic seasonal allergic rhinitis, unspecified trigger J30.2 ; Urinary incontinence, unspecified type R32 and Encounter for immunization Z23 [address] [id number] [place] [address] Mar, [address] [id number] [place] [address] Mar, ADHD (attention deficit hyperactivity disorder), combined type F90.2 ; Bipolar disorder, in partial remission, most recent episode manic F31.73 ; Autism spectrum disorder F84.0 and Borderline personality disorder F60.3 IMMUNIZATIONS No Known Immunizations SOCIAL HISTORY Never Assessed REASON FOR VISIT establish care / congestion -- yonis [place], he would like something for his acn e PLAN OF CARE Activity Details Follow Up 3 Months, prn Reason:CHM/Acne VITAL SIGNS Height 5'7" in 2017-10-16 Weight 210.0 lbs 2017-10-16 Temperature 98.0 degrees Fahrenheit 2017-10-16 Heart Rate 78 bpm 2017-10-16 Respiratory Rate 22 2017-10-16 BMI 32.89 kg/m2 2017-10-16 Blood pressure systolic 130 mmHg 2017-10-16 Blood pressure diastolic 72 mmHg 2017-10-16 MEDICATIONS Medication Instructions Dosage Frequency Start Date End Date Duration Status Pantoprazole Sodium 40 mg Orally Once a day 1 tablet 24h Apr, Active Trileptal 600 MG 1 TABLET TWICE A DAY ORALLY 30 DAYS Active FluvoxaMINE Maleate ER 150 MG Orally at bedtime 2 capsules Active Focalin 5 mg Orally at 3pm 1 tablet Sep, Active Fanapt 12 MG 1 TABLET TWICE A DAY ORALLY 30 DAYS Active Perphenazine 8 MG Orally Twice a day 1 tablet 12h Active Cetirizine HCl 10 mg Orally Once a day 1 tablet 24h Oct, Jun, 90 days Active Focalin XR 30 MG Orally Once a day in morning 1 capsule Sep, Active Focalin 10 MG Orally at 10am and 3pm 1 tablet Sep, Active Singulair 10 mg Orally Once a day 1 tablet in the evening 24h Active DiphenhydrAMINE HCl 50 MG 2 CAPSULES AT BEDTIME NEEDED FOR SLEEP ORALLY 30 DAYS Active Incontinence Supplies - as directed Apr, Active Minocycline HCl 100 mg Orally every 12 hrs 1 capsule 12h Oct, Jan, 30 days Active Sonata 10 mg Orally Once a day 1 capsule at bedtime as needed 24h Active Guanfacine HCl 1 MG Orally 3 times a day at 7am, 11 am and 630pm 1 tablet Active Benztropine Mesylate 2 MG Orally at bedtime 1 tablet Active RESULTS No Results PROCEDURES No Known [...]
--- OUTSIDE RECORDS SUMMARY | 2019-01-09 22:50 | XMS REPORT ---
Author Author LEANDRO SAMANTHA Organization [facility] Address [address] [place] [address] Care Team Providers Care Superintendent Plant Name Role Phone SAMANTHA REEVES Unavailable PROBLEMS Type Condition ICD9-CM Code LWV25-UO Code Onset Dates Condition Status SNOMED Code Problem Bipolar disorder, in partial remission, most recent episode manic F31.73 Active 66447046 Problem ADHD (attention deficit hyperactivity disorder), combined type F90.2 Active 15494523 Problem Autism spectrum disorder F84.0 Active 41761950 Problem Borderline personality disorder F60.3 Active 64448269 Problem Other obesity due to excess calories E66.09 Active 182464364 Problem Acne vulgaris L70.0 Active 01113756 Problem Urinary incontinence, unspecified type R32 Active 800825407 Problem Chronic seasonal allergic rhinitis, unspecified trigger J30.2 Active 994075657 Problem Body mass index (BMI) of 32.0-32.9 in adult Z68.32 Active 037862272 Problem Chronic GERD K21.9 Active 068402570 ALLERGIES No Information ENCOUNTERS Encounter Location Date Diagnosis [facility] [id number] [id number] Jun, [facility] [address] [address] Apr, [facility] [id number] [address] Jan, ADHD (attention deficit hyperactivity disorder), combined type F90.2 ; Bipolar disorder, in partial remission, most recent episode manic F31.73 ; Borderline personality disorder F60.3 and Autism spectrum disorder F84.0 [facility] [address], [place] [address] Jan, Acne vulgaris L70.0 [facility] [address], [place] [address] Jan, [facility] [address], [place] [address] Dec, [facility] [address], [place] [address] Dec, [facility] [address] [id number] Dec, Encounter for dental examination Z01.20 [facility] [id number] [address] Dec, ADHD (attention deficit hyperactivity disorder), combined type F90.2 ; Bipolar disorder, in partial remission, most recent episode manic F31.73 ; Borderline personality disorder F60.3 and Autism spectrum disorder F84.0 [facility] [id number] [address] November, ADHD (attention deficit hyperactivity disorder), combined type F90.2 [facility] [address], [place] [address] November, [facility] [id number], [place] [address] November, [facility] [address], [place] [address] November, [facility] [id number], [place] [address] Oct, Bipolar disorder, in partial remission, most recent episode manic F31.73 [facility] [address], [place] [address] Oct, ADHD (attention deficit hyperactivity disorder), combined type F90.2 [facility] [address], [place] [address] Oct, [facility] [id number], [place] [address] Oct, [facility] [address] [address] Oct, ADHD (attention deficit hyperactivity disorder), combined [...] index (BMI) of 32.0-32.9 in adult Z68.32 [facility] [id number] [address] Sep, [facility] [id number] [address] Sep, Borderline personality disorder F60.3 [facility] [id number] [address] Aug, Borderline personality disorder F60.3 [facility] [id number] [address] Aug, [facility] [id number] [address] Jul, Borderline personality disorder F60.3 ; Autism spectrum disorder F84.0 ; Bipolar disorder, in partial remission, most recent episode manic F31.73 and ADHD (attention deficit hyperactivity disorder), combined type F90.2 [facility] [address] [address] Jul, [facility] [id number] [id number] Jul, Dental examination Z01.20 [facility] [address] [address] Jun, [facility] [id number] [address] May, [facility] [id number] [id number] May, Dental examination Z01.20 [facility] [address], [place] [address] May, [facility] [address], [place] [address] May, High risk medication use Z79.899 [facility] [address], [place] [address] May, [facility] [address], [place] [address] May, [facility] [address], [place] [address] Apr, High risk medication use Z79.899 ; Borderline personality disorder F60.3 ; Autism spectrum disorder F84.0 ; Bipolar disorder, in partial remission, most recent episode manic F31.73 and ADHD (attention deficit hyperactivity disorder), combined type F90.2 [facility] [address], [place] [address] Apr, [facility] [address], [place] [address] Apr, [facility] [address], [place] [address] Apr, Chronic GERD K21.9 ; Chronic seasonal allergic rhinitis, unspecified trigger J30.2 ; Urinary incontinence, unspecified type R32 and Encounter for immunization Z23 [facility] [address], [place] [address] Mar, [facility] [address], [place] [address] Mar, ADHD (attention deficit hyperactivity disorder), combined type F90.2 ; Bipolar disorder, in partial remission, most recent episode manic F31.73 ; Autism spectrum disorder F84.0 and Borderline personality disorder F60.3 IMMUNIZATIONS No Known Immunizations SOCIAL HISTORY Never Assessed REASON FOR VISIT Prior Authorization Fluvoxamine PLAN OF CARE VITAL SIGNS MEDICATIONS Unknown [...]
--- OUTSIDE RECORDS SUMMARY | 2019-01-09 22:50 | XMS REPORT ---
Author Author FREDRICKLIO JAY [facility] Address [address] [place] [address] Care Team Providers Care Stave Cutter Name Role Phone LIO MAX Unavailable PROBLEMS Type Condition ICD9-CM Code [id number] Code Onset Dates Condition Status SNOMED Code Problem Bipolar disorder, in partial remission, most recent episode manic F31.73 Active 52379904 Problem ADHD (attention deficit hyperactivity disorder), combined type F90.2 Active 27702744 Problem Autism spectrum disorder F84.0 Active 97311821 Problem Borderline personality disorder F60.3 Active 54622560 Problem Other obesity due to excess calories E66.09 Active 751890801 Problem Acne vulgaris L70.0 Active 17161091 Problem Urinary incontinence, unspecified type R32 Active 094847292 Problem Chronic seasonal allergic rhinitis, unspecified trigger J30.2 Active 417067844 Problem Body mass index (BMI) of 32.0-32.9 in adult Z68.32 Active 270870355 Problem Chronic GERD K21.9 Active 796953942 ALLERGIES No Information ENCOUNTERS Encounter Location Date Diagnosis [facility] [id number] [id number] Jun, [facility] [address] [place] [address] Apr, [facility] [id number] [place] [address] Jan, ADHD (attention deficit hyperactivity disorder), combined type F90.2 ; Bipolar disorder, in partial remission, most recent episode manic F31.73 ; Borderline personality disorder F60.3 and Autism spectrum disorder F84.0 [facility] [address] [address] Jan, Acne vulgaris L70.0 [facility] [address] [address] Jan, [facility] [id number] [place] [address] Dec, [facility] [address], [place] [address] Dec, [facility] [address] [id number] Dec, Encounter for dental examination Z01.20 [facility] [id number] [place] [address] Dec, ADHD (attention deficit hyperactivity disorder), combined type F90.2 ; Bipolar disorder, in partial remission, most recent episode manic F31.73 ; Borderline personality disorder F60.3 and Autism spectrum disorder F84.0 [facility] [id number] [place] [address] November, ADHD (attention deficit hyperactivity disorder), combined type F90.2 [facility] [address] [address] November, [facility] [id number] [place] [address] November, [facility] [address], [place] [address] November, [facility] [address], [place] [address] Oct, Bipolar disorder, in partial remission, most recent episode manic F31.73 [facility] [address], [place] [address] Oct, ADHD (attention deficit hyperactivity disorder), combined type F90.2 [facility] [address], [place] [address] Oct, [facility] [address], [place] [address] Oct, [facility] [address] [place] [address] Oct, ADHD (attention deficit hyperactivity disorder), combined [...] in adult Z68.32 [facility] [id number] [place] [address] Sep, [facility] [id number] [place] [address] Sep, Borderline personality disorder F60.3 [facility] [id number] [place] [address] Aug, Borderline personality disorder F60.3 [facility] [id number] [place] [address] Aug, [facility] [id number] [place] [address] Jul, Borderline personality disorder F60.3 ; Autism spectrum disorder F84.0 ; Bipolar disorder, in partial remission, most recent episode manic F31.73 and ADHD (attention deficit hyperactivity disorder), combined type F90.2 [facility] [address] [place] [address] Jul, [facility] [id number] [place] [id number] Jul, Dental examination Z01.20 [facility] [address] [place] [address] Jun, [facility] [id number] [place] [address] May, [facility] [address] [facility] [id number] [id number] May, Dental examination Z01.20 [facility] [address], [place] [address] May, [facility] [address], [place] [address] May, High risk medication use Z79.899 [facility] [address], [place] [address] May, [facility] [address] [place] [address] May, [facility] [address], [place] [address] Apr, High risk medication use Z79.899 ; Borderline personality disorder F60.3 ; Autism spectrum disorder F84.0 ; Bipolar disorder, in partial remission, most recent episode manic F31.73 and ADHD (attention deficit hyperactivity disorder), combined type F90.2 [facility] [address], [place] [address] Apr, [facility] [address], [place] [address] Apr, [facility] [address] [place] [address] Apr, Chronic GERD K21.9 ; Chronic seasonal allergic rhinitis, unspecified trigger J30.2 ; Urinary incontinence, unspecified type R32 and Encounter for immunization Z23 [facility] [address], [place] [address] Mar, [facility] [address] [place] [address] Mar, ADHD (attention deficit hyperactivity disorder), combined type F90.2 ; Bipolar disorder, in partial remission, most recent episode manic F31.73 ; Autism spectrum disorder F84.0 and Borderline personality disorder F60.3 IMMUNIZATIONS No Known Immunizations SOCIAL HISTORY Never Assessed REASON FOR VISIT Miley Prior Authorization PLAN OF CARE VITAL SIGNS MEDICATIONS Unknown [...]
--- OUTSIDE RECORDS SUMMARY | 2019-01-09 22:50 | XMS REPORT ---
Author Author MANSOOR LIO [facility] Address [address] [place] [address] Care Team Providers Care Linseed Oil Press Tender Name Role Phone FREDRICKLIO JAY Unavailable PROBLEMS Type Condition ICD9-CM Code CVA26-OR Code Onset Dates Condition Status SNOMED Code Problem Bipolar disorder, in partial remission, most recent episode manic F31.73 Active 65579237 Problem ADHD (attention deficit hyperactivity disorder), combined type F90.2 Active 76930391 Problem Autism spectrum disorder F84.0 Active 04339437 Problem Borderline personality disorder F60.3 Active 26518980 Problem Other obesity due to excess calories E66.09 Active 467406757 Problem Acne vulgaris L70.0 Active 43832414 Problem Urinary incontinence, unspecified type R32 Active 952942992 Problem Chronic seasonal allergic rhinitis, unspecified trigger J30.2 Active 347985661 Problem Body mass index (BMI) of 32.0-32.9 in adult Z68.32 Active 453788375 Problem Chronic GERD K21.9 Active 531603085 ALLERGIES No Information ENCOUNTERS Encounter Location Date Diagnosis [facility] [id number] [place] [id number] Jun, [facility] [id number] [place] [address] Jan, [facility] [address] [place] [address] Jan, [facility] [address] [address] Jan, [facility] [id number] [place] [address] Dec, [facility] [id number] [place] [address] Dec, [facility] [id number] [id number] 11 Dec, 2017 Encounter for dental examination Z01.20 [facility] [address], [place] [address] 04 Dec, 2017 ADHD (attention deficit hyperactivity disorder), combined type F90.2 ; Bipolar disorder, in partial remission, most recent episode manic F31.73 ; Borderline personality disorder F60.3 and Autism spectrum disorder F84.0 [facility] [address], [place] [address] November, ADHD (attention deficit hyperactivity disorder), combined type F90.2 [facility] [address], [place] [address] November, [facility] [id number], [place] [address] November, [facility] [address], [place] [address] November, [facility] [address] [place] [address] Oct, Bipolar disorder, in partial remission, most recent episode manic F31.73 [facility] [address], [place] [address] Oct, ADHD (attention deficit hyperactivity disorder), combined type F90.2 [facility] [address], [place] [address] Oct, [facility] [address], [place] [address] Oct, [facility] [address], [place] [address] Oct, ADHD (attention deficit hyperactivity disorder), combined [...] index (BMI) of 32.0-32.9 in adult Z68.32 [facility] [address], [place] [address] Sep, [facility] [id number] [place] [address] Sep, Borderline personality disorder F60.3 [facility] [id number] [place] [address] Aug, Borderline personality disorder F60.3 [facility] [id number] [place] [address] Aug, [facility] [id number] [place] [address] Jul, Borderline personality disorder F60.3 ; Autism spectrum disorder F84.0 ; Bipolar disorder, in partial remission, most recent episode manic F31.73 and ADHD (attention deficit hyperactivity disorder), combined type F90.2 [facility] [address] [place] [address] Jul, [facility] [address] [id number] Jul, Dental examination Z01.20 [facility] [id number] [place] [address] Jun, [facility] [id number] [place] [address] May, [facility] [address] [place] [id number] May, Dental examination Z01.20 [facility] [address], [place] [address] May, [facility] [address], [place] [address] May, High risk medication use Z79.[id number] [place] [address] May, [place] [id number] [place] [address] May, [place] [id number] [place] [address] Apr, High risk medication use Z79.899 ; Borderline personality disorder F60.3 ; Autism spectrum disorder F84.0 ; Bipolar disorder, in partial remission, most recent episode manic F31.73 and ADHD (attention deficit hyperactivity disorder), combined type F90.2 [place] [facility] [id number] [place] [address] Apr, [place] [facility] [id number] [place] [address] Apr, [place] [id number] [place] [address] Apr, Chronic GERD K21.9 ; Chronic seasonal allergic rhinitis, unspecified trigger J30.2 ; Urinary incontinence, unspecified type R32 and Encounter for immunization Z23 [place] [address] [place] [address] Mar, [place] [id number] [place] [address] Mar, ADHD (attention deficit hyperactivity disorder), combined type F90.2 ; Bipolar disorder, in partial remission, most recent episode manic F31.73 ; Autism spectrum disorder F84.0 and Borderline personality disorder F60.3 IMMUNIZATIONS No Known Immunizations SOCIAL HISTORY Never Assessed REASON FOR VISIT focalin 10/06/2017 PLAN OF CARE VITAL SIGNS MEDICATIONS Medication Instructions Dosage Frequency Start Date End Date Duration Status Focalin XR 30 MG Orally Once a day in morning 1 capsule Sep, 28 days Active Focalin 5 mg Orally at 3pm 1 tablet Sep, 28 days Active Focalin 10 MG Orally at 10am and 3pm 1 tablet Sep, 28 days Active RESULTS No Results PROCEDURES [...]
--- OUTSIDE RECORDS SUMMARY | 2019-01-09 22:50 | XMS REPORT ---
Author Author FREDRICKLIO JAY [facility] Address [address] [place] [address] Care Team Providers Care Steel Cutter Name Role Phone LIO MAX Unavailable PROBLEMS Type Condition ICD9-CM Code IYR58-ZS Code Onset Dates Condition Status SNOMED Code Problem Bipolar disorder, in partial remission, most recent episode manic F31.73 Active 90319009 Problem ADHD (attention deficit hyperactivity disorder), combined type F90.2 Active 94926701 Problem Autism spectrum disorder F84.0 Active 75351064 Problem Borderline personality disorder F60.3 Active 28560467 Problem Other obesity due to excess calories E66.09 Active 727601830 Problem Acne vulgaris L70.0 Active 55690675 Problem Urinary incontinence, unspecified type R32 Active 032037985 Problem Chronic seasonal allergic rhinitis, unspecified trigger J30.2 Active 503083965 Problem Body mass index (BMI) of 32.0-32.9 in adult Z68.32 Active 367081818 Problem Chronic GERD K21.9 Active 577957090 ALLERGIES No Information ENCOUNTERS Encounter Location Date Diagnosis [facility] [id number] [id number] Jun, [facility] [address] [place] [address] Apr, [facility] [id number] [place] [address] Jan, ADHD (attention deficit hyperactivity disorder), combined type F90.2 ; Bipolar disorder, in partial remission, most recent episode manic F31.73 ; Borderline personality disorder F60.3 and Autism spectrum disorder F84.0 [facility] [address], [place] [address] Jan, Acne vulgaris L70.0 [facility] [address], [place] [address] Jan, [facility] [id number] [place] [address] Dec, [facility] [address], [place] [address] Dec, [facility] [address] [id number] Dec, Encounter for dental examination Z01.20 [facility] [id number] [place] [address] Dec, ADHD (attention deficit hyperactivity disorder), combined type F90.2 ; Bipolar disorder, in partial remission, most recent episode manic F31.73 ; Borderline personality disorder F60.3 and Autism spectrum disorder F84.0 [facility] [id number] [place] [address] November, ADHD (attention deficit hyperactivity disorder), combined type F90.2 [facility] [address], [place] [address] November, [facility] [id number] [place] [address] November, [facility] [address], [place] [address] November, [facility] [address], [place] [address] Oct, Bipolar disorder, in partial remission, most recent episode manic F31.73 [facility] [address], [place] [address] Oct, ADHD (attention deficit hyperactivity disorder), combined type F90.2 [facility] [address], [place] [address] Oct, [facility] [address], [place] [address] Oct, [facility] [address] [place] [address] Oct, ADHD (attention deficit hyperactivity disorder), combined [...] index (BMI) of 32.0-32.9 in adult Z68.32 [facility] [id number] [place] [address] Sep, [facility] [id number] [place] [address] Sep, Borderline personality disorder F60.3 [facility] [id number] [place] [address] Aug, Borderline personality disorder F60.3 [facility] [id number] [place] [address] Aug, [facility] [id number] [place] [address] Jul, Borderline personality disorder F60.3 ; Autism spectrum disorder F84.0 ; Bipolar disorder, in partial remission, most recent episode manic F31.73 and ADHD (attention deficit hyperactivity disorder), combined type F90.2 [facility] [address] [place] [address] Jul, [facility] [id number] [place] [id number] Jul, Dental examination Z01.20 [facility] [address] [place] [address] Jun, [facility] [id number] [place] [address] May, [facility] [address] [facility] [id number] [id number] May, Dental examination Z01.20 [facility] [address], [place] [address] May, [facility] [address], [place] [address] May, High risk medication use Z79.899 [facility] [address], [place] [address] May, [facility] [address] [place] [address] May, [facility] [address], [place] [address] Apr, High risk medication use Z79.899 ; Borderline personality disorder F60.3 ; Autism spectrum disorder F84.0 ; Bipolar disorder, in partial remission, most recent episode manic F31.73 and ADHD (attention deficit hyperactivity disorder), combined type F90.2 [facility] [address], [place] [address] Apr, [facility] [address], [place] [address] Apr, [facility] [address] [place] [address] Apr, Chronic GERD K21.9 ; Chronic seasonal allergic rhinitis, unspecified trigger J30.2 ; Urinary incontinence, unspecified type R32 and Encounter for immunization Z23 [facility] [address], [place] [address] Mar, [facility] [id number] [place] [address] Mar, ADHD (attention deficit hyperactivity disorder), combined type F90.2 ; Bipolar disorder, in partial remission, most recent episode manic F31.73 ; Autism spectrum disorder F84.0 and Borderline personality disorder F60.3 IMMUNIZATIONS No Known Immunizations SOCIAL HISTORY Never Assessed REASON FOR VISIT focalin 11/03/2017 PLAN OF CARE VITAL SIGNS MEDICATIONS Medication Instructions Dosage Frequency Start Date End Date Duration Status Focalin 5 mg Orally at 3pm 1 tablet Oct, 28 days Active Focalin 10 mg Orally at 10am and 3pm 1 tablet Oct, 28 days Active Focalin XR 30 MG Orally Once a day in morning 1 capsule Oct, 28 days Active RESULTS No Results PROCEDURES [...]
--- OUTSIDE RECORDS SUMMARY | 2019-01-09 22:50 | XMS REPORT ---
Author Author FREDRICKLIO JAY [facility] Address [address] [place] [address] Care Team Providers Care Telegraph Repeater Technician Name Role Phone LIO MAX Unavailable PROBLEMS Type Condition ICD9-CM Code UIE07-GI Code Onset Dates Condition Status SNOMED Code Problem Bipolar disorder, in partial remission, most recent episode manic F31.73 Active 94704275 Problem ADHD (attention deficit hyperactivity disorder), combined type F90.2 Active 15992129 Problem Autism spectrum disorder F84.0 Active 49490068 Problem Borderline personality disorder F60.3 Active 22887450 Problem Other obesity due to excess calories E66.09 Active 688416096 Problem Acne vulgaris L70.0 Active 36251044 Problem Urinary incontinence, unspecified type R32 Active 352858265 Problem Chronic seasonal allergic rhinitis, unspecified trigger J30.2 Active 374456283 Problem Body mass index (BMI) of 32.0-32.9 in adult Z68.32 Active 868046736 Problem Chronic GERD K21.9 Active 631644344 ALLERGIES No Information ENCOUNTERS Encounter Location Date Diagnosis [facility] [id number] [id number] Jun, [facility] [address] [place] [address] Apr, [facility] [id number] [place] [address] Jan, ADHD (attention deficit hyperactivity disorder), combined type F90.2 ; Bipolar disorder, in partial remission, most recent episode manic F31.73 ; Borderline personality disorder F60.3 and Autism spectrum disorder F84.0 [facility] [address], [place] [address] Jan, Acne vulgaris L70.0 [facility] [address] [address] Jan, [facility] [id number] [place] [address] Dec, [facility] [address], [place] [address] Dec, [facility] [address] [id number] Dec, Encounter for dental examination Z01.20 [facility] [id number] [place] [address] Dec, ADHD (attention deficit hyperactivity disorder), combined type F90.2 ; Bipolar disorder, in partial remission, most recent episode manic F31.73 ; Borderline personality disorder F60.3 and Autism spectrum disorder F84.0 [facility] [id number] [place] [address] November, ADHD (attention deficit hyperactivity disorder), combined type F90.2 [facility] [address], [place] [address] November, [facility] [id number] [place] [address] November, [facility] [address], [place] [address] November, [facility] [address], [place] [address] Oct, Bipolar disorder, in partial remission, most recent episode manic F31.73 [facility] [address], [place] [address] Oct, ADHD (attention deficit hyperactivity disorder), combined type F90.2 [facility] [address], [place] [address] Oct, [facility] [address], [place] [address] Oct, [facility] [address] [place] [address] Oct, ADHD (attention deficit hyperactivity disorder), combined [...] index (BMI) of 32.0-32.9 in adult Z68.32 [facility] [id number] [place] [address] Sep, [facility] [id number] [place] [address] Sep, Borderline personality disorder F60.3 [facility] [id number] [place] [address] Aug, Borderline personality disorder F60.3 [facility] [id number] [place] [address] Aug, [facility] [id number] [place] [address] Jul, Borderline personality disorder F60.3 ; Autism spectrum disorder F84.0 ; Bipolar disorder, in partial remission, most recent episode manic F31.73 and ADHD (attention deficit hyperactivity disorder), combined type F90.2 [facility] [address] [place] [address] Jul, [facility] [id number] [place] [id number] Jul, Dental examination Z01.20 [facility] [address] [place] [address] Jun, [facility] [id number] [place] [address] May, [facility] [address] [facility] [id number] [id number] May, Dental examination Z01.20 [facility] [address], [place] [address] May, [facility] [address], [place] [address] May, High risk medication use Z79.899 [facility] [address], [place] [address] May, [facility] [address] [place] [address] May, [facility] [address], [place] [address] Apr, High risk medication use Z79.899 ; Borderline personality disorder F60.3 ; Autism spectrum disorder F84.0 ; Bipolar disorder, in partial remission, most recent episode manic F31.73 and ADHD (attention deficit hyperactivity disorder), combined type F90.2 [facility] [address], [place] [address] Apr, [facility] [address], [place] [address] Apr, [facility] [address] [place] [address] Apr, Chronic GERD K21.9 ; Chronic seasonal allergic rhinitis, unspecified trigger J30.2 ; Urinary incontinence, unspecified type R32 and Encounter for immunization Z23 [facility] [address], [place] [address] Mar, [facility] [address] [place] [address] Mar, ADHD (attention deficit hyperactivity disorder), combined type F90.2 ; Bipolar disorder, in partial remission, most recent episode manic F31.73 ; Autism spectrum disorder F84.0 and Borderline personality disorder F60.3 IMMUNIZATIONS No Known Immunizations SOCIAL HISTORY Never Assessed REASON FOR VISIT Controlled Med Refill PLAN OF CARE VITAL SIGNS MEDICATIONS Medication Instructions Dosage Frequency Start Date End Date Duration Status FluvoxaMINE Maleate ER 150 MG Orally at bedtime 2 capsules 30 days Active RESULTS No Results PROCEDURES No [...]
--- OUTSIDE RECORDS SUMMARY | 2019-01-09 22:50 | XMS REPORT ---
Author Author ALFONZO SILVEIRA [facility] Address [address] [place] [address] Care Team Providers Care Granite Polisher Machine Name Role Phone CESARDAYANJACI ALFONZO Unavailable PROBLEMS Type Condition ICD9-CM Code MBE96-IQ Code Onset Dates Condition Status SNOMED Code Problem Bipolar disorder, in partial remission, most recent episode manic F31.73 Active 08610024 Problem ADHD (attention deficit hyperactivity disorder), combined type F90.2 Active 40998520 Problem Autism spectrum disorder F84.0 Active 59975489 Problem Borderline personality disorder F60.3 Active 56660754 Problem Other obesity due to excess calories E66.09 Active 584979570 Problem Acne vulgaris L70.0 Active 20612830 Problem Urinary incontinence, unspecified type R32 Active 262892087 Problem Chronic seasonal allergic rhinitis, unspecified trigger J30.2 Active 933531558 Problem Body mass index (BMI) of 32.0-32.9 in adult Z68.32 Active 524393481 Problem Chronic GERD K21.9 Active 608136067 ALLERGIES No Information ENCOUNTERS Encounter Location Date Diagnosis [facility] [id number] [place] [id number] Jun, [facility] [id number] [place] [address] Jan, [facility] [id number] [place] [address] Jan, [facility] [address] [address] Jan, [facility] [id number] [place] [address] Dec, [facility] [address] [address] Dec, [facility] [id number] [id number] Dec, Encounter for dental examination Z01.20 [facility] [address], [place] [address] Dec, ADHD (attention deficit hyperactivity disorder), combined type F90.2 ; Bipolar disorder, in partial remission, most recent episode manic F31.73 ; Borderline personality disorder F60.3 and Autism spectrum disorder F84.0 [facility] [address], [place] [address] November, ADHD (attention deficit hyperactivity disorder), combined type F90.2 [facility] [address], [place] [address] November, [facility] [id number] [place] [address] November, [facility] [address], [place] [address] November, [facility] [id number] [place] [address] Oct, Bipolar disorder, in partial remission, most recent episode manic F31.73 [facility] [address], [place] [address] Oct, ADHD (attention deficit hyperactivity disorder), combined type F90.2 [facility] [address], [place] [address] Oct, [facility] [id number] [place] [address] Oct, [facility] [address] [place] [address] Oct, ADHD (attention deficit hyperactivity disorder), combined [...] index (BMI) of 32.0-32.9 in adult Z68.32 [facility] [id number] [place] [address] Sep, [facility] [id number] [place] [address] Sep, Borderline personality disorder F60.3 [facility] [id number] [place] [address] Aug, Borderline personality disorder F60.3 [facility] [id number] [place] [address] Aug, [facility] [address] [address] Jul, Borderline personality disorder F60.3 ; Autism spectrum disorder F84.0 ; Bipolar disorder, in partial remission, most recent episode manic F31.73 and ADHD (attention deficit hyperactivity disorder), combined type F90.2 [facility] [id number] [place] [address] Jul, [facility] [address] [place] [id number] Jul, Dental examination Z01.20 [facility] [id number] [place] [address] Jun, [facility] [id number] [place] [address] May, [facility] [id number] [place] [id number] May, Dental examination Z01.20 [facility] [id number] [place] [address] May, [place] [address], [place] [address] May, High risk medication use Z79.899 [place] [id number] [place] [address] May, [place] [address] [place] [address] May, [place] [id number] [place] [address] Apr, High risk medication use Z79.899 ; Borderline personality disorder F60.3 ; Autism spectrum disorder F84.0 ; Bipolar disorder, in partial remission, most recent episode manic F31.73 and ADHD (attention deficit hyperactivity disorder), combined type F90.2 [place] [id number] [place] [address] Apr, [place] [id number] [place] [address] Apr, [place] [id number] [place] [address] Apr, Chronic GERD K21.9 ; Chronic seasonal allergic rhinitis, unspecified trigger J30.2 ; Urinary incontinence, unspecified type R32 and Encounter for immunization Z23 [place] [address], [place] [address] Mar, [place] [id number] [place] [address] Mar, ADHD (attention deficit hyperactivity disorder), combined type F90.2 ; Bipolar disorder, in partial remission, most recent episode manic F31.73 ; Autism spectrum disorder F84.0 and Borderline personality disorder F60.3 IMMUNIZATIONS No Known Immunizations SOCIAL HISTORY Never Assessed REASON FOR VISIT Refill request PLAN OF CARE VITAL SIGNS MEDICATIONS Medication Instructions Dosage Frequency Start Date End Date Duration Status Singulair 10 mg Orally Once a day 1 tablet in the evening 24h Active RESULTS No Results PROCEDURES No Known [...]
--- OUTSIDE RECORDS SUMMARY | 2019-01-09 22:51 | XMS REPORT ---
Author Author MANSOOR LIO [facility] Address [address] [place] [address] Care Team Providers Care Agribusiness Professor Name Role Phone FREDRICKMART JAYA Unavailable PROBLEMS Type Condition ICD9-CM Code XRC05-KA Code Onset Dates Condition Status SNOMED Code Problem Bipolar disorder, in partial remission, most recent episode manic F31.73 Active 02901074 Problem ADHD (attention deficit hyperactivity disorder), combined type F90.2 Active 95348452 Problem Autism spectrum disorder F84.0 Active 42030440 Problem Borderline personality disorder F60.3 Active 67866656 Problem Other obesity due to excess calories E66.09 Active 180464251 Problem Acne vulgaris L70.0 Active 70695065 Problem Urinary incontinence, unspecified type R32 Active 026855278 Problem Chronic seasonal allergic rhinitis, unspecified trigger J30.2 Active 236030216 Problem Body mass index (BMI) of 32.0-32.9 in adult Z68.32 Active 869376107 Problem Chronic GERD K21.9 Active 004984268 ALLERGIES No Information ENCOUNTERS Encounter Location Date Diagnosis [facility] [id number] [place] [id number] Dec, [facility] [place] [id number] [place] [address] November, [facility] [place] [address] [place] [address] November, ADHD (attention deficit hyperactivity disorder), combined type F90.2 [facility] [place] [id number] [place] [address] November, [facility] [place] [id number] [place] [address] November, [facility] [place] [address] [place] [address] November, [facility] [place] [id number] [place] [address] Oct, Bipolar disorder, in partial remission, most recent episode manic F31.73 [facility] [place] [id number] [place] [address] Oct, ADHD (attention deficit hyperactivity disorder), combined type F90.2 [facility] [place] [id number] [place] [address] Oct, [place] [id number] [place] [address] Oct, [place] [id number] [place] [address] Oct, ADHD (attention deficit hyperactivity disorder), combined [...] index (BMI) of 32.0-32.9 in adult Z68.32 [place] [address], [place] [address] Sep, [facility] [place] [id number] [place] [address] Sep, Borderline personality disorder F60.3 [facility] [place] [address] [place] [address] Aug, Borderline personality disorder F60.3 [facility] [place] [id number] [place] [address] Aug, [facility] [place] [address] [place] [address] Jul, Borderline personality disorder F60.3 ; Autism spectrum disorder F84.0 ; Bipolar disorder, in partial remission, most recent episode manic F31.73 and ADHD (attention deficit hyperactivity disorder), combined type F90.2 [facility] [place] [address] [id number] [address] Jul, [facility] [address] [id number] [id number] Jul, Dental examination Z01.20 [facility] [place] [address] [id number] [address] Jun, [facility] [place] [id number] [place] [address] May, [facility] [id number] [id number] May, Dental examination Z01.20 [facility] [place] [id number] [place] [address] May, [facility] [place] [id number] [place] [address] May, High risk medication use Z79.899 [facility] [place] [id number] [place] [address] May, [facility] [place] [id number], [place] [address] May, [facility] [place] [id number], [place] [address] Apr, High risk medication use Z79.899 ; Borderline personality disorder F60.3 ; Autism spectrum disorder F84.0 ; Bipolar disorder, in partial remission, most recent episode manic F31.73 and ADHD (attention deficit hyperactivity disorder), combined type F90.2 [facility] [place] [address] [facility] [id number], [place] [address] Apr, [facility] [place] [id number], [place] [address] Apr, [facility] [place] [address] [facility] [id number] [place] [address] Apr, Chronic GERD K21.9 ; Chronic seasonal allergic rhinitis, unspecified trigger J30.2 ; Urinary incontinence, unspecified type R32 and Encounter for immunization Z23 [facility] [place] [address] [facility] [id number], [place] [address] Mar, [facility] [place] [id number], [place] [address] Mar, ADHD (attention deficit hyperactivity disorder), combined type F90.2 ; Bipolar disorder, in partial remission, most recent episode manic F31.73 ; Autism spectrum disorder F84.0 and Borderline personality disorder F60.3 IMMUNIZATIONS No Known Immunizations SOCIAL HISTORY Never Assessed REASON FOR VISIT Lab (walk-in)--[facility] PLAN OF CARE VITAL SIGNS MEDICATIONS Unknown Medications RESULTS No Results PROCEDURES Procedure Date Ordered Result Body Site LAB NOT BILLED BY [facility] May 20, 2017 JUANIS, ROUTINE* May 20, 2017 INSTRUCTIONS MEDICATIONS ADMINISTERED No Known Medications [...]
--- OUTSIDE RECORDS SUMMARY | 2019-01-09 22:51 | XMS REPORT ---
Author Author MANSOORLIO [facility] Address [address] [place] [address] Care Team Providers Care Body Shop Technician Name Role Phone LIO MAX Unavailable PROBLEMS Type Condition ICD9-CM Code XEN44-TU Code Onset Dates Condition Status SNOMED Code Problem Bipolar disorder, in partial remission, most recent episode manic F31.73 Active 09437996 Problem ADHD (attention deficit hyperactivity disorder), combined type F90.2 Active 90195212 Problem Autism spectrum disorder F84.0 Active 34850562 Problem Borderline personality disorder F60.3 Active 98693042 Problem Other obesity due to excess calories E66.09 Active 532757635 Problem Acne vulgaris L70.0 Active 98874625 Problem Urinary incontinence, unspecified type R32 Active 902011151 Problem Chronic seasonal allergic rhinitis, unspecified trigger J30.2 Active 847277224 Problem Body mass index (BMI) of 32.0-32.9 in adult Z68.32 Active 669403992 Problem Chronic GERD K21.9 Active 686222284 ALLERGIES No Information ENCOUNTERS Encounter Location Date Diagnosis [facility] [id number] [place] [phone] Jun, [facility] [id number] [place] [phone] Jan, [facility] [id number] [place] [address] Jan, [facility] [address] [address] Dec, [facility] [id number] [place] [address] Dec, [facility] [id number] [place] [phone] Dec, Encounter for dental examination Z01.20 [facility] [address] [address] Dec, ADHD (attention deficit hyperactivity disorder), combined type F90.2 ; Bipolar disorder, in partial remission, most recent episode manic F31.73 ; Borderline personality disorder F60.3 and Autism spectrum disorder F84.0 [facility] [id number] [place] [address] November, ADHD (attention deficit hyperactivity disorder), combined type F90.2 [facility] [id number] [place] [address] November, [facility] [id number] [place] [address] November, [facility] [id number] [place] [address] November, [facility] [id number] [place] [address] Oct, Bipolar disorder, in partial remission, most recent episode manic F31.73 [facility] [id number] [place] [address] Oct, ADHD (attention deficit hyperactivity disorder), combined type F90.2 [facility] [address], [place] [address] Oct, [facility] [id number] [place] [address] Oct, [facility] [id number] [place] [phone] Oct, ADHD (attention deficit hyperactivity disorder), combined [...] (BMI) of 32.0-32.9 in adult Z68.32 [facility] [id number] [place] [address] Sep, [facility] [address], [place] [address] Sep, Borderline personality disorder F60.3 [facility] [id number] [place] [phone] Aug, Borderline personality disorder F60.3 [facility] [id number] [place] [address] Aug, [facility] [id number] [place] [address] Jul, Borderline personality disorder F60.3 ; Autism spectrum disorder F84.0 ; Bipolar disorder, in partial remission, most recent episode manic F31.73 and ADHD (attention deficit hyperactivity disorder), combined type F90.2 [facility] [id number] [place] [address] Jul, [facility] [id number] [place] [address] [phone] Jul, Dental examination Z01.20 [facility] [id number] [place] [address] Jun, [facility] [id number] [place] [address] May, [facility] [id number] [place] [address] [phone] May, Dental examination Z01.20 [facility] [id number] [place] [address] May, [facility] [address], [place] [address] May, High risk medication use Z79.[address], [place] [address] May, [place] [id number] [place] [address] May, [place] [id number] [place] [address] Apr, High risk medication use Z79.899 ; Borderline personality disorder F60.3 ; Autism spectrum disorder F84.0 ; Bipolar disorder, in partial remission, most recent episode manic F31.73 and ADHD (attention deficit hyperactivity disorder), combined type F90.2 [place] [id number] [place] [address] Apr, [place] [id number] [place] [address] Apr, [place] [id number] [place] [address] Apr, Chronic GERD K21.9 ; Chronic seasonal allergic rhinitis, unspecified trigger J30.2 ; Urinary incontinence, unspecified type R32 and Encounter for immunization Z23 [id number] [place] [address] Mar, [id number] [place] [address] Mar, ADHD (attention deficit hyperactivity disorder), combined type F90.2 ; Bipolar disorder, in partial remission, most recent episode manic F31.73 ; Autism spectrum disorder F84.0 and Borderline personality disorder F60.3 IMMUNIZATIONS No Known Immunizations SOCIAL HISTORY Never Assessed REASON FOR VISIT focalin 09/08/2017 PLAN OF CARE VITAL SIGNS MEDICATIONS Medication Instructions Dosage Frequency Start Date End Date Duration Status Focalin 5 mg Orally at 3pm 1 tablet Aug, 28 days Active Focalin 10 MG Orally at 10am and 3pm 1 tablet Aug, 28 days Active Focalin XR 30 MG Orally Once a day in morning 1 capsule Aug, 28 days Active RESULTS No Results PROCEDURES [...]
--- OUTSIDE RECORDS SUMMARY | 2019-01-09 22:51 | XMS REPORT ---
Author Author UBALDO ARNOLD [facility] Address Unknown Care Team Providers Care Scientific Aide Name Role Phone UBALDO ARNOLD Unavailable PROBLEMS Type Condition ICD9-CM Code IWC34-ML Code Onset Dates Condition Status SNOMED Code Problem Bipolar disorder, in partial remission, most recent episode manic F31.73 Active 36170466 Problem ADHD (attention deficit hyperactivity disorder), combined type F90.2 Active 95716135 Problem Autism spectrum disorder F84.0 Active 23542014 Problem Borderline personality disorder F60.3 Active 31402389 Problem Other obesity due to excess calories E66.09 Active 246938391 Problem Acne vulgaris L70.0 Active 47105966 Problem Urinary incontinence, unspecified type R32 Active 122685268 Problem Chronic seasonal allergic rhinitis, unspecified trigger J30.2 Active 265064094 Problem Body mass index (BMI) of 32.0-32.9 in adult Z68.32 Active 110868349 Problem Chronic GERD K21.9 Active 375012634 ALLERGIES Substance Reaction Event Type Date Status Phenergan hives Drug Allergy Jul, Active Depakote concentration problems Drug Allergy Jul, Active ENCOUNTERS Encounter Location Date Diagnosis [facility] [address] [facility] [id number] [phone] Jun, [facility] [address], [place] [address] Jan, [facility] [address], [place] [address] Jan, [facility] [id number] [place] [phone] Dec, [facility] [address], [place] [address] Dec, [facility] [id number] [place] [address] [phone] Dec, Encounter for dental examination Z01.20 [facility] [id number] [place] [address] Dec, ADHD (attention deficit hyperactivity disorder), combined type F90.2 ; Bipolar disorder, in partial remission, most recent episode manic F31.73 ; Borderline personality disorder F60.3 and Autism spectrum disorder F84.0 [facility] [id number] [place] [phone] November, ADHD (attention deficit hyperactivity disorder), combined type F90.2 [facility] [id number] [place] [phone] November, [facility] [id number] [place] [address] November, [facility] [id number] [place] [address] November, [facility] [id number] [place] [address] Oct, Bipolar disorder, in partial remission, most recent episode manic F31.73 [facility] [id number] [place] [phone] Oct, ADHD (attention deficit hyperactivity disorder), combined type F90.2 [facility] [id number] [place] [phone] Oct, [facility] [id number] [place] [address] Oct, [facility] [id number] [place] [phone] Oct, ADHD (attention deficit hyperactivity disorder), combined [...] adult Z68.32 [facility] [id number] [place] [address] Sep, [facility] [id number] [place] [phone] Sep, Borderline personality disorder F60.3 [facility] [id number] [place] [phone] Aug, Borderline personality disorder F60.3 [facility] [address] [address] Aug, [facility] [id number] [place] [phone] Jul, Borderline personality disorder F60.3 ; Autism spectrum disorder F84.0 ; Bipolar disorder, in partial remission, most recent episode manic F31.73 and ADHD (attention deficit hyperactivity disorder), combined type F90.2 [facility] [id number] [place] [phone] Jul, [facility] [id number] [place] [address] [phone] Jul, Dental examination Z01.20 [facility] [id number] [place] [phone] Jun, [facility] [id number] [place] [phone] May, [facility] [id number] [place] [address] [phone] May, Dental examination Z01.20 [facility] [id number] [place] [phone] May, [facility] [address] [address] May, High risk medication use Z79.8[address] [address] May, [place] [place] [id number] [place] [phone] May, [address] [place] [id number] [place] [phone] Apr, High risk medication use Z79.899 ; Borderline personality disorder F60.3 ; Autism spectrum disorder F84.0 ; Bipolar disorder, in partial remission, most recent episode manic F31.73 and ADHD (attention deficit hyperactivity disorder), combined type F90.2 [address] [place] [id number] [place] [phone] Apr, [place] [id number] [place] [phone] Apr, [place] [id number] [place] [phone] Apr, Chronic GERD K21.9 ; Chronic seasonal allergic rhinitis, unspecified trigger J30.2 ; Urinary incontinence, unspecified type R32 and Encounter for immunization Z23 [place] [place] [phone] Mar, [place] [id number] [place] [phone] Mar, ADHD (attention deficit hyperactivity disorder), combined type F90.2 ; Bipolar disorder, in partial remission, most recent episode manic F31.73 ; Autism spectrum disorder F84.0 and Borderline personality disorder F60.3 IMMUNIZATIONS No Known Immunizations SOCIAL HISTORY Never Assessed REASON FOR VISIT filling PLAN OF CARE Activity Details Follow Up 4 Months Reason:julia/hygiene VITAL SIGNS Height 5'7" in 2017-07-15 Blood pressure systolic 151 mmHg 2017-07-15 Blood pressure diastolic 97 mmHg 2017-07-15 MEDICATIONS Medication Instructions Dosage Frequency Start Date End Date Duration Status Benztropine Mesylate 2 MG Orally at bedtime 1 tablet 30 days Active Pantoprazole Sodium 40 mg Orally Once a day 1 tablet 24h Apr, 90 days Active Singulair 10 MG Orally Once a day 1 tablet in the evening 24h Active Singulair 10 mg Orally Once a day 1 tablet in the evening 24h Apr, 90 days Active Focalin 10 mg Orally at 10am and 3pm 1 tablet May, 28 days Active Sonata 10 mg Orally at bedtime as needed for sleep 1 capsule 30 days Active Guanfacine HCl 1 MG Orally 3 times a day at 7am, 11 am and 630pm 1 tablet 30 days Active Focalin 5 mg Orally at 3pm 1 tablet May, 28 days Active Focalin XR 30 MG Orally Once a day in morning 1 capsule Jun, Jul, 28 days Active Incontinence Supplies - as directed Apr, lifetime Active FluvoxaMINE Maleate ER 150 MG Orally at bedtime 2 capsules 30 days Active Perphenazine 8 MG Orally twice a day 1 tablet 12h 30 days Active Trileptal 600 MG Orally Twice a day 1 tablet 12h 30 days Active Fanapt 12 MG Orally Twice a day 1 tablet 12h 30 days Active DiphenhydrAMINE HCl 50 MG 2 CAPSULES AT BEDTIME NEEDED FOR SLEEP ORALLY 30 DAYS 30 Active RESULTS No Results PROCEDURES Procedure Date Ordered Result Body Site RESIN COMPOS - 2 SURFACES POSTERIOR Jul 15, 2017 Billing Notes on claim Jul 15, 2017 INSTRUCTIONS MEDICATIONS ADMINISTERED No Known Medications [...]
--- OUTSIDE RECORDS SUMMARY | 2019-01-09 22:51 | XMS REPORT ---
Author Author ALFONZO SILVEIRA [facility] Address [address] [place] [address] Care Team Providers Care Sap Project Manager Name Role Phone CESARDAYANJACI ALFONZO Unavailable PROBLEMS Type Condition ICD9-CM Code FSF91-RR Code Onset Dates Condition Status SNOMED Code Problem Bipolar disorder, in partial remission, most recent episode manic F31.73 Active 44647320 Problem ADHD (attention deficit hyperactivity disorder), combined type F90.2 Active 53173512 Problem Autism spectrum disorder F84.0 Active 74331734 Problem Borderline personality disorder F60.3 Active 93332908 Problem Other obesity due to excess calories E66.09 Active 257048552 Problem Acne vulgaris L70.0 Active 07432365 Problem Urinary incontinence, unspecified type R32 Active 410995312 Problem Chronic seasonal allergic rhinitis, unspecified trigger J30.2 Active 631846566 Problem Body mass index (BMI) of 32.0-32.9 in adult Z68.32 Active 319924679 Problem Chronic GERD K21.9 Active 213366718 ALLERGIES No Information ENCOUNTERS Encounter Location Date Diagnosis [facility] [id number] [place] [phone] Dec, [facility] [address] [place] [address] November, [facility] [id number], [place] [address] November, ADHD (attention deficit hyperactivity disorder), combined type F90.2 [facility] [address] [place] [address] November, [facility] [address], [place] [address] November, [facility] [address], [place] [address] November, [facility] [id number] [place] [address] Oct, Bipolar disorder, in partial remission, most recent episode manic F31.73 [place] [id number] [place] [address] Oct, ADHD (attention deficit hyperactivity disorder), combined type F90.2 [facility] [id number] [place] [address] Oct, [place] [id number] [place] [address] Oct, [place] [id number] [place] [address] Oct, ADHD (attention deficit hyperactivity disorder), combined [...] index (BMI) of 32.0-32.9 in adult Z68.32 [place] [address], [place] [address] Sep, [place] [id number] [place] [address] Sep, Borderline personality disorder F60.3 [place] [id number] [place] [address] Aug, Borderline personality disorder F60.3 [place] [address] [place] [address] Aug, [place] [id number] [place] [address] Jul, Borderline personality disorder F60.3 ; Autism spectrum disorder F84.0 ; Bipolar disorder, in partial remission, most recent episode manic F31.73 and ADHD (attention deficit hyperactivity disorder), combined type F90.2 [facility] [address] [id number] [address] Jul, [facility] [id number] [place] [phone] Jul, Dental examination Z01.20 [facility] [id number] [place] [address] Jun, [facility] [id number] [place] [address] May, [facility] [id number] [place] [address] [id number] May, Dental examination Z01.20 [facility] [id number] [place] [address] May, [facility] [id number] [place] [address] May, High risk medication use Z79.899 [facility] [id number] [place] [address] May, [facility] [id number], [place] [address] May, [facility] [id number] [place] [address] Apr, High risk medication use Z79.899 ; Borderline personality disorder F60.3 ; Autism spectrum disorder F84.0 ; Bipolar disorder, in partial remission, most recent episode manic F31.73 and ADHD (attention deficit hyperactivity disorder), combined type F90.2 [facility] [address] [facility] [id number] [place] [address] Apr, [facility] [id number] [place] [address] Apr, [facility] [address] [facility] [id number] [place] [address] Apr, Chronic GERD K21.9 ; Chronic seasonal allergic rhinitis, unspecified trigger J30.2 ; Urinary incontinence, unspecified type R32 and Encounter for immunization Z23 [facility] [address] [facility] [id number] [place] [address] Mar, [facility] [address] [facility] [id number], [place] [address] Mar, ADHD (attention deficit hyperactivity disorder), combined type F90.2 ; Bipolar disorder, in partial remission, most recent episode manic F31.73 ; Autism spectrum disorder F84.0 and Borderline personality disorder F60.3 IMMUNIZATIONS No Known Immunizations SOCIAL HISTORY Never Assessed REASON FOR VISIT eye exam PLAN OF CARE VITAL SIGNS MEDICATIONS Unknown [...]
--- OUTSIDE RECORDS SUMMARY | 2019-01-09 22:51 | XMS REPORT ---
Author Author ALFONZO SILVEIRA [facility] Address [address] [place] [address] Care Team Providers Care Sql Server Bi Developer Name Role Phone ALFONZO SILVEIRA Unavailable PROBLEMS Type Condition ICD9-CM Code [id number] Code Onset Dates Condition Status SNOMED Code Problem Bipolar disorder, in partial remission, most recent episode manic F31.73 Active 81166740 Problem ADHD (attention deficit hyperactivity disorder), combined type F90.2 Active 06957026 Problem Autism spectrum disorder F84.0 Active 54139295 Problem Borderline personality disorder F60.3 Active 06957397 Problem Other obesity due to excess calories E66.09 Active 334432846 Problem Acne vulgaris L70.0 Active 80334036 Problem Urinary incontinence, unspecified type R32 Active 675095262 Problem Chronic seasonal allergic rhinitis, unspecified trigger J30.2 Active 204966123 Problem Body mass index (BMI) of 32.0-32.9 in adult Z68.32 Active 887652655 Problem Chronic GERD K21.9 Active 200565240 ALLERGIES Substance Reaction Event Type Date Status Phenergan hives Drug Allergy Apr, Active Depakote concentration problems Drug Allergy Apr, Active ENCOUNTERS Encounter Location Date Diagnosis [facility] [address] [facility] [id number] [id number] Dec, [facility] [id number] [address] November, [facility] [address], [place] [address] November, [facility] [address], [place] [address] November, [facility] [address] [address] November, [facility] [address], [place] [address] Oct, Bipolar disorder, in partial remission, most recent episode manic F31.73 [facility] [address], [place] [address] Oct, ADHD (attention deficit hyperactivity disorder), combined type F90.2 [facility] [id number] [place] [address] Oct, [place] [id number] [place] [address] Oct, [place] [id number] [place] [address] Oct, ADHD (attention deficit hyperactivity disorder), combined [...] index (BMI) of 32.0-32.9 in adult Z68.32 [place] [address], [place] [address] Sep, [place] [address], [place] [address] Sep, Borderline personality disorder F60.3 [place] [address] [address] Aug, Borderline personality disorder F60.3 [place] [id number] [place] [address] Aug, [facility] [address], [place] [address] Jul, Borderline personality disorder F60.3 ; Autism spectrum disorder F84.0 ; Bipolar disorder, in partial remission, most recent episode manic F31.73 and ADHD (attention deficit hyperactivity disorder), combined type F90.2 [facility] [address] [id number], [place] [address] Jul, [facility] [address] [id number] [id number] Jul, Dental examination Z01.20 [facility] [id number] [place] [address] Jun, [facility] [address] [id number] [place] [address] May, [facility] [id number] [place] [id number] May, Dental examination Z01.20 [facility] [id number] [place] [address] May, [facility] [id number] [place] [address] May, High risk medication use Z79.899 [facility] [id number] [place] [address] May, [facility] [id number] [address] May, [facility] [address], [place] [address] Apr, High risk medication use Z79.899 ; Borderline personality disorder F60.3 ; Autism spectrum disorder F84.0 ; Bipolar disorder, in partial remission, most recent episode manic F31.73 and ADHD (attention deficit hyperactivity disorder), combined type F90.2 [facility] [address] [facility] [id number] [address] Apr, [facility] [id number] [address] Apr, [facility] [id number] [address] Apr, Chronic GERD K21.9 ; Chronic seasonal allergic rhinitis, unspecified trigger J30.2 ; Urinary incontinence, unspecified type R32 and Encounter for immunization Z23 [facility] [address] [facility] [id number] [place] [address] Mar, [facility] [address] [facility] [id number] [address] Mar, ADHD (attention deficit hyperactivity disorder), combined type F90.2 ; Bipolar disorder, in partial remission, most recent episode manic F31.73 ; Autism spectrum disorder F84.0 and Borderline personality disorder F60.3 IMMUNIZATIONS Vaccine Route Administration Date Status FLUARIX QUAD (3 AND UP) 2016 IM Intramuscular Apr 15, 2017 Administered SOCIAL HISTORY Never Assessed REASON FOR VISIT Establish Care/ patient states he just moved from [place] and wants to comtinuo his [facility] care with -- yonis [place] PLAN OF CARE Activity Details Follow Up annually and sooner if needed Reason: VITAL SIGNS Height 5'7" in 2017-04-15 Weight 202.6 lbs 2017-04-15 Temperature 97.8 degrees Fahrenheit 2017-04-15 BMI 31.73 kg/m2 2017-04-15 Blood pressure systolic 120 mmHg 2017-04-15 Blood pressure diastolic 76 mmHg 2017-04-15 MEDICATIONS Medication Instructions Dosage Frequency Start Date End Date Duration Status Trileptal 600 MG Orally Twice a day 1 tablet 12h 30 days Active Guanfacine HCl 1 MG Orally 3 times a day at 7am, 11 am and 630pm 1 tablet 30 days Active Pantoprazole Sodium 20 mg Orally Once a day 1 tablet 24h Active Perphenazine 8 MG Orally twice a day 1 tablet 12h 30 days Active Focalin 5 MG Orally Once a day at 3pm 1 tablet Mar, Apr, 30 days Active Sonata 10 MG Orally Once a day 1 capsule at bedtime as needed 24h 30 days Active Fanapt 12 MG Orally Twice a day 1 tablet 12h 30 days Active Pantoprazole Sodium 40 mg Orally Once a day 1 tablet 24h Apr, 90 days Active Focalin 10 MG Orally Twice a day at 10 am and 3pm 1 tablet Mar, Apr, 30 days Active Focalin XR 30 MG Orally Once a day 1 capsule in the morning 24h Mar, Apr, 28 days Active FluvoxaMINE Maleate ER 150 MG Orally Once a day at bedtime 2 capsules 30 days Active Singulair 10 MG Orally Once a day 1 tablet in the evening 24h Active Benztropine Mesylate 2 MG Orally Once a day 1 tablet at bedtime 24h 30 days Active DiphenhydrAMINE HCl 50 MG Orally Once a day at bedtime 2 capsules 30 days Active Singulair 10 mg Orally Once a day 1 tablet in the evening 24h Apr, 90 days Active Incontinence Supplies - as directed Apr, lifetime Active RESULTS No Results PROCEDURES Procedure Date Ordered Result Body Site FLUARIX QUAD (3 & UP)-GSK-2015 Apr 15, 2017 SINGLE IMMUNIZATION ADMIN Apr 15, 2017 INSTRUCTIONS MEDICATIONS ADMINISTERED No Known [...]
--- OUTSIDE RECORDS SUMMARY | 2019-01-09 22:52 | XMS REPORT ---
Author Author MANSOORLIO [facility] Address [address] [place] [address] Care Team Providers Care Food Order Delivery Runner Name Role Phone LIO MAX Unavailable PROBLEMS Type Condition ICD9-CM Code ETU17-CA Code Onset Dates Condition Status SNOMED Code Problem Bipolar disorder, in partial remission, most recent episode manic F31.73 Active 28441895 Problem ADHD (attention deficit hyperactivity disorder), combined type F90.2 Active 56518164 Problem Autism spectrum disorder F84.0 Active 63976869 Problem Borderline personality disorder F60.3 Active 67888947 Problem Other obesity due to excess calories E66.09 Active 086795477 Problem Acne vulgaris L70.0 Active 26289331 Problem Urinary incontinence, unspecified type R32 Active 730298393 Problem Chronic seasonal allergic rhinitis, unspecified trigger J30.2 Active 457872957 Problem Body mass index (BMI) of 32.0-32.9 in adult Z68.32 Active 109028373 Problem Chronic GERD K21.9 Active 039770892 ALLERGIES No Information ENCOUNTERS Encounter Location Date Diagnosis [facility] [id number] [place] [id number] Jun, [facility] [id number] [place] [address] Jan, [facility] [id number] [place] [address] Jan, [facility] [address] [address] Dec, [facility] [id number] [place] [address] Dec, [facility] [id number] [place] [id number] Dec, Encounter for dental examination Z01.20 [facility] [address], [place] [address] Dec, ADHD (attention deficit hyperactivity disorder), combined type F90.2 ; Bipolar disorder, in partial remission, most recent episode manic F31.73 ; Borderline personality disorder F60.3 and Autism spectrum disorder F84.0 [facility] [id number] [place] [address] November, ADHD (attention deficit hyperactivity disorder), combined type F90.2 [facility] [id number] [place] [address] November, [facility] [id number] [place] [address] November, [facility] [id number] [place] [address] November, [facility] [id number] [place] [address] Oct, Bipolar disorder, in partial remission, most recent episode manic F31.73 [facility] [id number] [place] [address] Oct, ADHD (attention deficit hyperactivity disorder), combined type F90.2 [facility] [address], [place] [address] Oct, [facility] [id number] [place] [address] Oct, [facility] [address] [place] [address] Oct, ADHD (attention deficit hyperactivity disorder), combined [...] index (BMI) of 32.0-32.9 in adult Z68.32 [facility] [address] [place] [address] Sep, [facility] [address], [place] [address] Sep, Borderline personality disorder F60.3 [facility] [id number] [place] [address] Aug, Borderline personality disorder F60.3 [facility] [id number] [place] [address] Aug, [facility] [id number] [place] [address] Jul, Borderline personality disorder F60.3 ; Autism spectrum disorder F84.0 ; Bipolar disorder, in partial remission, most recent episode manic F31.73 and ADHD (attention deficit hyperactivity disorder), combined type F90.2 [facility] [address] [place] [address] Jul, [facility] [id number] [place] [id number] Jul, Dental examination Z01.20 [facility] [id number] [place] [address] Jun, [facility] [id number] [place] [address] May, [facility] [address] [place] [id number] May, Dental examination Z01.20 [facility] [id number] [place] [address] May, [facility] [address], [place] [address] May, High risk medication use Z79.899 [place] [id number] [place] [address] May, [place] [facility] [id number] [place] [address] May, [place] [facility] [id number] [place] [address] Apr, High risk medication use Z79.899 ; Borderline personality disorder F60.3 ; Autism spectrum disorder F84.0 ; Bipolar disorder, in partial remission, most recent episode manic F31.73 and ADHD (attention deficit hyperactivity disorder), combined type F90.2 [place] [facility] [id number] [place] [address] Apr, [place] [id number] [place] [address] Apr, [place] [id number] [place] [address] Apr, Chronic GERD K21.9 ; Chronic seasonal allergic rhinitis, unspecified trigger J30.2 ; Urinary incontinence, unspecified type R32 and Encounter for immunization Z23 [place] [id number] [place] [address] Mar, [place] [id number] [place] [address] Mar, ADHD (attention deficit hyperactivity disorder), combined [...] 10 mg Orally Once a day 1 CAPSULE AT BEDTIME NEEDED FOR SLEEP ORALLY 30 DAYS 24h 30 Active Focalin 10 mg Orally at 10am and 3pm 1 tablet Jul, 28 days Active Focalin XR 30 MG Orally Once a day in morning 1 capsule Jul, 28 days Active Benztropine Mesylate 2 MG Orally at bedtime 1 tablet 90 days Active Focalin 5 mg Orally at 3pm 1 tablet Jul, 28 days Active RESULTS No Results PROCEDURES [...]
--- OUTSIDE RECORDS SUMMARY | 2019-01-09 22:52 | XMS REPORT ---
Author Author ALFONZO SILVEIRA [facility] Address [address] [place] [address] Care Team Providers Care Consultant Technology Name Role Phone CESARDAYANJACI ALFONZO Unavailable PROBLEMS Type Condition ICD9-CM Code DWP24-WN Code Onset Dates Condition Status SNOMED Code Problem Bipolar disorder, in partial remission, most recent episode manic F31.73 Active 27250389 Problem ADHD (attention deficit hyperactivity disorder), combined type F90.2 Active 13966166 Problem Autism spectrum disorder F84.0 Active 21342451 Problem Borderline personality disorder F60.3 Active 86485733 Problem Other obesity due to excess calories E66.09 Active 479438294 Problem Acne vulgaris L70.0 Active 87785821 Problem Urinary incontinence, unspecified type R32 Active 350912803 Problem Chronic seasonal allergic rhinitis, unspecified trigger J30.2 Active 662244001 Problem Body mass index (BMI) of 32.0-32.9 in adult Z68.32 Active 862468775 Problem Chronic GERD K21.9 Active 206912501 ALLERGIES No Information ENCOUNTERS Encounter Location Date Diagnosis [facility] [address] [id number] Jun, [facility] [id number] [place] [address] Jan, [facility] [id number] [place] [address] Jan, [facility] [address] [address] Dec, [facility] [id number] [place] [address] Dec, [facility] [address] [id number] Dec, Encounter for dental examination Z01.20 [facility] [address] [place] [address] Dec, ADHD (attention deficit hyperactivity disorder), combined type F90.2 ; Bipolar disorder, in partial remission, most recent episode manic F31.73 ; Borderline personality disorder F60.3 and Autism spectrum disorder F84.0 [place] [id number] [place] [address] November, ADHD (attention deficit hyperactivity disorder), combined type F90.2 [place] [id number] [place] [address] November, [place] [id number] [place] [address] November, [place] [id number] [place] [address] November, [facility] [id number] [place] [address] Oct, Bipolar disorder, in partial remission, most recent episode manic F31.73 [place] [id number] [place] [address] Oct, ADHD (attention deficit hyperactivity disorder), combined type F90.2 [facility] [address], [place] [address] Oct, [facility] [id number] [place] [address] Oct, [facility] [address] [place] [address] Oct, ADHD (attention deficit hyperactivity disorder), combined [...] index (BMI) of 32.0-32.9 in adult Z68.32 [facility] [address], [place] [address] Sep, [facility] [id number] [place] [address] Sep, Borderline personality disorder F60.3 [facility] [id number] [place] [address] Aug, Borderline personality disorder F60.3 [facility] [id number] [place] [address] Aug, [facility] [id number] [place] [address] Jul, Borderline personality disorder F60.3 ; Autism spectrum disorder F84.0 ; Bipolar disorder, in partial remission, most recent episode manic F31.73 and ADHD (attention deficit hyperactivity disorder), combined type F90.2 [facility] [address] [place] [address] Jul, [facility] [id number] [place] [id number] Jul, Dental examination Z01.20 [facility] [address] [place] [address] Jun, [facility] [id number] [place] [address] May, [facility] [id number] [place] [id number] May, Dental examination Z01.20 [facility] [id number] [place] [address] May, [facility] [id number] [place] [address] May, High risk medication use Z79.899 [facility] [address] [place] [address] May, [place] [id number] [place] [address] May, [place] [id number] [place] [address] Apr, High risk medication use Z79.899 ; Borderline personality disorder F60.3 ; Autism spectrum disorder F84.0 ; Bipolar disorder, in partial remission, most recent episode manic F31.73 and ADHD (attention deficit hyperactivity disorder), combined type F90.2 [place] [id number] [place] [address] Apr, [place] [id number] [place] [address] Apr, [place] [id number] [place] [address] Apr, Chronic GERD K21.9 ; Chronic seasonal allergic rhinitis, unspecified trigger J30.2 ; Urinary incontinence, unspecified type R32 and Encounter for immunization Z23 [place] [address] [place] [address] Mar, [place] [address] [place] [address] Mar, ADHD (attention deficit hyperactivity disorder), combined type F90.2 ; Bipolar disorder, in partial remission, most recent episode manic F31.73 ; Autism spectrum disorder F84.0 and Borderline personality disorder F60.3 IMMUNIZATIONS No Known Immunizations SOCIAL HISTORY Never Assessed REASON FOR VISIT Refill request PLAN OF CARE VITAL SIGNS MEDICATIONS Unknown [...]
--- OUTSIDE RECORDS SUMMARY | 2019-01-09 22:52 | XMS REPORT ---
Author Author MANSOOR LIO [facility] Address [address] [place] [address] Care Team Providers Care Clinical Services Director Name Role Phone FREDRICKLIO JAY Unavailable PROBLEMS Type Condition ICD9-CM Code [id number] Code Onset Dates Condition Status SNOMED Code Problem Bipolar disorder, in partial remission, most recent episode manic F31.73 Active 29725532 Problem ADHD (attention deficit hyperactivity disorder), combined type F90.2 Active 85271330 Problem Autism spectrum disorder F84.0 Active 47894719 Problem Borderline personality disorder F60.3 Active 25324562 Problem Other obesity due to excess calories E66.09 Active 849064981 Problem Acne vulgaris L70.0 Active 30077129 Problem Urinary incontinence, unspecified type R32 Active 703130349 Problem Chronic seasonal allergic rhinitis, unspecified trigger J30.2 Active 539226258 Problem Body mass index (BMI) of 32.0-32.9 in adult Z68.32 Active 369040917 Problem Chronic GERD K21.9 Active 663197889 ALLERGIES Substance Reaction Event Type Date Status Phenergan hives Drug Allergy Apr, Active Depakote concentration problems Drug Allergy Apr, Active ENCOUNTERS Encounter Location Date Diagnosis [facility] [address] [id number] [id number] Dec, [facility] [address] [address] November, [facility] [address] [place] [address] November, ADHD (attention deficit hyperactivity disorder), combined type F90.2 [facility] [id number] [address] November, [facility] [id number] [place] [address] November, [facility] [address], [place] [address] November, [facility] [address] [place] [address] Oct, Bipolar disorder, in partial remission, most recent episode manic F31.73 [facility] [id number] [place] [address] Oct, ADHD (attention deficit hyperactivity disorder), combined type F90.2 [facility] [address] [address] Oct, [facility] [address] [place] [address] Oct, [facility] [address] [place] [address] Oct, ADHD (attention deficit hyperactivity disorder), combined [...] index (BMI) of 32.0-32.9 in adult Z68.32 [facility] [address] [address] Sep, [facility] [id number], [place] [address] Sep, Borderline personality disorder F60.3 [facility] [address] [place] [address] Aug, Borderline personality disorder F60.3 [facility] [address] [address] Aug, [facility] [id number], [place] [address] Jul, Borderline personality disorder F60.3 ; Autism spectrum disorder F84.0 ; Bipolar disorder, in partial remission, most recent episode manic F31.73 and ADHD (attention deficit hyperactivity disorder), combined type F90.2 [facility] [id number], [place] [address] Jul, [facility] [address] [id number] [id number] Jul, Dental examination Z01.20 [facility] [id number] [place] [address] Jun, [facility] [id number] [place] [address] May, [facility] [address] [id number] [id number] May, Dental examination Z01.20 [facility] [id number] [place] [address] May, [facility] [id number] [place] [address] May, High risk medication use Z79.899 [facility] [address], [place] [address] May, [facility] [id number], [place] [address] May, [facility] [id number], [place] [address] Apr, High risk medication use Z79.899 ; Borderline personality disorder F60.3 ; Autism spectrum disorder F84.0 ; Bipolar disorder, in partial remission, most recent episode manic F31.73 and ADHD (attention deficit hyperactivity disorder), combined type F90.2 [facility] [id number], [place] [address] Apr, [address] [facility] [id number] [address] Apr, [place] [id number], [place] [address] Apr, Chronic GERD K21.9 ; Chronic seasonal allergic rhinitis, unspecified trigger J30.2 ; Urinary incontinence, unspecified type R32 and Encounter for immunization Z23 [address] [address], [place] [address] Mar, [place] [id number], [place] [address] Mar, ADHD (attention deficit hyperactivity disorder), combined type F90.2 ; Bipolar disorder, in partial remission, most recent episode manic F31.73 ; Autism spectrum disorder F84.0 and Borderline personality disorder F60.3 IMMUNIZATIONS No Known Immunizations SOCIAL HISTORY Never Assessed REASON FOR VISIT f/u PLAN OF CARE Activity Details Follow Up 3 Months Reason: VITAL SIGNS Height 5'7" in 2017-05-12 Weight 200.3 lbs 2017-05-12 Heart Rate 72 bpm 2017-05-12 Respiratory Rate 20 2017-05-12 BMI 31.37 kg/m2 2017-05-12 Blood pressure systolic 110 mmHg 2017-05-12 Blood pressure diastolic 70 mmHg 2017-05-12 MEDICATIONS Medication Instructions Dosage Frequency Start Date End Date Duration Status Guanfacine HCl 1 MG Orally 3 times a day at 7am, 11 am and 630pm 1 tablet 30 days Active Singulair 10 mg Orally Once a day 1 tablet in the evening 24h Apr, 90 days Active Benztropine Mesylate 2 MG Orally at bedtime 1 tablet 30 days Active Trileptal 600 MG Orally Twice a day 1 tablet 12h 30 days Active Singulair 10 MG Orally Once a day 1 tablet in the evening 24h Active FluvoxaMINE Maleate ER 150 MG Orally at bedtime 2 capsules 30 days Active Focalin 5 MG Orally at 3pm 1 tablet Active Focalin XR 30 MG Orally Once a day in morning 1 capsule Active Focalin 10 MG Orally daily at 10am and 3pm 1 tablet Apr, May, 28 days Active Focalin 5 MG Orally once a day at 3pm 1 tablet Apr, May, 28 days Active Pantoprazole Sodium 40 mg Orally Once a day 1 tablet 24h Apr, 90 days Active DiphenhydrAMINE HCl 50 MG Orally at bedtime as needed for sleep 2 capsules 30 days Active Incontinence Supplies - as directed Apr, lifetime Active Perphenazine 8 MG Orally twice a day 1 tablet 12h 30 days Active Sonata 10 mg Orally at bedtime as needed for sleep 1 capsule 30 days Active Focalin XR 30 MG Orally Once a day in morning BRAND NAME ONLY 1 capsule Apr, May, 28 days Active Fanapt 12 MG Orally Twice a day 1 tablet 12h 30 days Active Focalin 10 MG Orally at 10am and 3pm 1 tablet Active RESULTS No Results PROCEDURES [...]
--- OUTSIDE RECORDS SUMMARY | 2019-01-09 22:52 | XMS REPORT ---
Author Author MANSOORLIO [facility] Address [address] [place] [address] Care Team Providers Care Mid Level Net Developer Name Role Phone FREDRICKLIO JAY Unavailable PROBLEMS Type Condition ICD9-CM Code TNV11-OX Code Onset Dates Condition Status SNOMED Code Problem Bipolar disorder, in partial remission, most recent episode manic F31.73 Active 39275602 Problem ADHD (attention deficit hyperactivity disorder), combined type F90.2 Active 55806493 Problem Autism spectrum disorder F84.0 Active 10246838 Problem Borderline personality disorder F60.3 Active 58275882 Problem Other obesity due to excess calories E66.09 Active 123679508 Problem Acne vulgaris L70.0 Active 87078004 Problem Urinary incontinence, unspecified type R32 Active 634106845 Problem Chronic seasonal allergic rhinitis, unspecified trigger J30.2 Active 727875745 Problem Body mass index (BMI) of 32.0-32.9 in adult Z68.32 Active 008643302 Problem Chronic GERD K21.9 Active 100883795 ALLERGIES Substance Reaction Event Type Date Status Phenergan hives Drug Allergy Mar, Active Depakote concentration problems Drug Allergy Mar, Active ENCOUNTERS Encounter Location Date Diagnosis [facility] [address] [facility] [id number] [id number] Dec, [facility] [address] [address] November, [facility] [address] [place] [address] Oct, Bipolar disorder, in partial remission, most recent episode manic F31.73 [facility] [id number] [address] Oct, ADHD (attention deficit hyperactivity disorder), combined type F90.2 [facility] [address] [address] Oct, [facility] [id number] [place] [address] Oct, [facility] [id number] [place] [address] Oct, ADHD (attention deficit hyperactivity disorder), combined [...] index (BMI) of 32.0-32.9 in adult Z68.32 [facility] [id number] [place] [address] Sep, [facility] [id number] [place] [address] Sep, Borderline personality disorder F60.3 [facility] [id number] [place] [address] Aug, Borderline personality disorder F60.3 [facility] [id number] [place] [address] Aug, [facility] [id number] [place] [address] Jul, Borderline personality disorder F60.3 ; Autism spectrum disorder F84.0 ; Bipolar disorder, in partial remission, most recent episode manic F31.73 and ADHD (attention deficit hyperactivity disorder), combined type F90.2 [facility] [address] [place] [address] Jul, [facility] [address] [id number] Jul, Dental examination Z01.20 [facility] [address] [address] Jun, [facility] [address] [place] [address] May, [facility] [address] [id number] May, Dental examination Z01.20 [facility] [id number] [place] [address] May, [facility] [address] [place] [address] May, High risk medication use Z79.899 [facility] [id number] [place] [address] May, [facility] [id number] [place] [address] May, [facility] [id number] [place] [address] Apr, High risk medication use Z79.899 ; Borderline personality disorder F60.3 ; Autism spectrum disorder F84.0 ; Bipolar disorder, in partial remission, most recent episode manic F31.73 and ADHD (attention deficit hyperactivity disorder), combined type F90.2 [facility] [address] [address] Apr, [facility] [address] [place] [address] Apr, [facility] [address] [place] [address] Apr, Chronic GERD K21.9 ; Chronic seasonal allergic rhinitis, unspecified trigger J30.2 ; Urinary incontinence, unspecified type R32 and Encounter for immunization Z23 [facility] [address] [address] Mar, [facility] [address] [id number] [address] Mar, ADHD (attention deficit hyperactivity disorder), combined type F90.2 ; Bipolar disorder, in partial remission, most recent episode manic F31.73 ; Autism spectrum disorder F84.0 and Borderline personality disorder F60.3 IMMUNIZATIONS No Known Immunizations SOCIAL HISTORY Never Assessed REASON FOR VISIT B/H intake PLAN OF CARE Activity Details Follow Up 6 Weeks Reason: VITAL SIGNS MEDICATIONS Medication Instructions Dosage Frequency Start Date End Date Duration Status Sonata 10 MG Orally Once a day 1 capsule at bedtime as needed 24h 30 days Active Focalin XR 30 MG Orally Once a day 1 capsule in the morning 24h Mar, Apr, 28 days Active Trileptal 600 MG Orally Twice a day 1 tablet 12h 30 days Active Guanfacine HCl 1 MG Orally 3 times a day at 7am, 11 am and 630pm 1 tablet 30 days Active Benztropine Mesylate 2 MG Orally Once a day 1 tablet at bedtime 24h 30 days Active DiphenhydrAMINE HCl 50 MG Orally Once a day at bedtime 2 capsules 30 days Active Focalin 5 MG Orally Once a day at 3pm 1 tablet Mar, Apr, 30 days Active Singulair 10 MG Orally Once a day 1 tablet in the evening 24h Active Fanapt 12 MG Orally Twice a day 1 tablet 12h 30 days Active FluvoxaMINE Maleate ER 150 MG Orally Once a day at bedtime 2 capsules 30 days Active Focalin 10 MG Orally Twice a day at 10 am and 3pm 1 tablet Mar, Apr, 30 days Active Pantoprazole Sodium 20 mg Orally Once a day 1 tablet 24h Active Perphenazine 8 MG Orally twice a day 1 tablet 12h 30 days Active RESULTS No Results PROCEDURES [...]
--- OUTSIDE RECORDS SUMMARY | 2019-01-09 22:52 | XMS REPORT ---
Author Author MANSOOR LIO [facility] Address [address] [place] [address] Care Team Providers Care Repeat Photocomposing Machine Operator Name Role Phone FREDRICKLIO JAY Unavailable PROBLEMS Type Condition ICD9-CM Code [id number] Code Onset Dates Condition Status SNOMED Code Problem Bipolar disorder, in partial remission, most recent episode manic F31.73 Active 12870494 Problem ADHD (attention deficit hyperactivity disorder), combined type F90.2 Active 83203333 Problem Autism spectrum disorder F84.0 Active 00913684 Problem Borderline personality disorder F60.3 Active 08533225 Problem Other obesity due to excess calories E66.09 Active 237866727 Problem Acne vulgaris L70.0 Active 05476225 Problem Urinary incontinence, unspecified type R32 Active 099594759 Problem Chronic seasonal allergic rhinitis, unspecified trigger J30.2 Active 955567074 Problem Body mass index (BMI) of 32.0-32.9 in adult Z68.32 Active 563536187 Problem Chronic GERD K21.9 Active 406837435 ALLERGIES No Information ENCOUNTERS Encounter Location Date Diagnosis [facility] [id number] [place] [id number] Dec, [facility] [id number] [place] [address] November, [facility] [id number] [place] [address] November, [facility] [address] [address] November, [facility] [id number] [place] [address] November, [facility] [id number] [place] [address] Oct, Bipolar disorder, in partial remission, most recent episode manic F31.73 [facility] [address], [place] [address] Oct, ADHD (attention deficit hyperactivity disorder), combined type F90.2 [facility] [address], [place] [address] Oct, [facility] [id number] [place] [address] Oct, [facility] [address], [place] [address] Oct, ADHD (attention deficit hyperactivity disorder), combined [...] index (BMI) of 32.0-32.9 in adult Z68.32 [place] [address] [place] [address] Sep, [facility] [address] [place] [address] Sep, Borderline personality disorder F60.3 [facility] [address], [place] [address] Aug, Borderline personality disorder F60.3 [facility] [address], [place] [address] Aug, [facility] [address] [place] [address] Jul, Borderline personality disorder F60.3 ; Autism spectrum disorder F84.0 ; Bipolar disorder, in partial remission, most recent episode manic F31.73 and ADHD (attention deficit hyperactivity disorder), combined type F90.2 [facility] [address] [facility] [id number] [address] Jul, [facility] [address] [place] [id number] Jul, Dental examination Z01.20 [facility] [address], [place] [address] Jun, [facility] [id number] [place] [address] May, [facility] [address] [place] [phone] May, Dental examination Z01.20 [facility] [id number] [place] [address] May, [facility] [id number] [place] [address] May, High risk medication use Z79.899 [facility] [address], [place] [address] May, [facility] [id number] [place] [address] May, [facility] [address], [place] [address] Apr, High risk medication use Z79.899 ; Borderline personality disorder F60.3 ; Autism spectrum disorder F84.0 ; Bipolar disorder, in partial remission, most recent episode manic F31.73 and ADHD (attention deficit hyperactivity disorder), combined type F90.2 [facility] [address], [place] [address] Apr, [facility] [id number], [place] [address] Apr, [facility] [address], [place] [address] Apr, Chronic GERD K21.9 ; Chronic seasonal allergic rhinitis, unspecified trigger J30.2 ; Urinary incontinence, unspecified type R32 and Encounter for immunization Z23 [facility] [address] [facility] [id number] [address] Mar, [facility] [address] [facility] [id number] [place] [address] Mar, ADHD (attention deficit hyperactivity disorder), combined type F90.2 ; Bipolar disorder, in partial remission, most recent episode manic F31.73 ; Autism spectrum disorder F84.0 and Borderline personality disorder F60.3 IMMUNIZATIONS No Known Immunizations SOCIAL HISTORY Never Assessed REASON FOR VISIT PA X4 (Zaleplon, Focalin XR brand, dexmethylphendate 5 & 10 mg) PLAN OF CARE VITAL SIGNS MEDICATIONS Unknown [...]
--- OUTSIDE RECORDS SUMMARY | 2019-01-09 22:53 | XMS REPORT ---
Author Author MANSOOR LIO [facility] Address [address] [place] [address] Care Team Providers Care Aircraft Structure Mechanic Name Role Phone FREDRICKMART JAYA Unavailable PROBLEMS Type Condition ICD9-CM Code [id number] Code Onset Dates Condition Status SNOMED Code Problem Bipolar disorder, in partial remission, most recent episode manic F31.73 Active 39926394 Problem ADHD (attention deficit hyperactivity disorder), combined type F90.2 Active 67499360 Problem Autism spectrum disorder F84.0 Active 45014575 Problem Borderline personality disorder F60.3 Active 09013828 Problem Other obesity due to excess calories E66.09 Active 153958985 Problem Acne vulgaris L70.0 Active 41371861 Problem Urinary incontinence, unspecified type R32 Active 481352755 Problem Chronic seasonal allergic rhinitis, unspecified trigger J30.2 Active 127532902 Problem Body mass index (BMI) of 32.0-32.9 in adult Z68.32 Active 906448573 Problem Chronic GERD K21.9 Active 327664154 ALLERGIES No Information ENCOUNTERS Encounter Location Date Diagnosis [facility] [id number] [place] [id number] Dec, [facility] [id number] [place] [address] Dec, [facility] [address] [place] [address] November, ADHD (attention deficit hyperactivity disorder), combined type F90.2 [facility] [id number] [place] [address] November, [facility] [id number] [place] [address] November, [facility] [address] [place] [address] November, [facility] [id number] [place] [address] Oct, Bipolar disorder, in partial remission, most recent episode manic F31.73 [facility] [id number] [place] [address] Oct, ADHD (attention deficit hyperactivity disorder), combined type F90.2 [facility] [id number] [place] [address] Oct, [place] [id number] [place] [address] Oct, [place] [id number] [place] [address] Oct, ADHD (attention deficit hyperactivity disorder), combined [...] index (BMI) of 32.0-32.9 in adult Z68.32 [place] [address], [place] [address] Sep, [facility] [id number] [place] [address] Sep, Borderline personality disorder F60.3 [facility] [address] [place] [address] Aug, Borderline personality disorder F60.3 [facility] [id number] [place] [address] Aug, [facility] [address] [place] [address] Jul, Borderline personality disorder F60.3 ; Autism spectrum disorder F84.0 ; Bipolar disorder, in partial remission, most recent episode manic F31.73 and ADHD (attention deficit hyperactivity disorder), combined type F90.2 [facility] [address] [id number] [address] Jul, [facility] [address] [id number] [id number] Jul, Dental examination Z01.20 [facility] [address] [id number], [place] [address] Jun, [facility] [id number] [place] [address] May, [facility] [id number] [id number] May, Dental examination Z01.20 [facility] [id number] [place] [address] May, [facility] [id number] [place] [address] May, High risk medication use Z79.899 [facility] [id number] [place] [address] May, [facility] [id number], [place] [address] May, [facility] [id number], [place] [address] Apr, High risk medication use Z79.899 ; Borderline personality disorder F60.3 ; Autism spectrum disorder F84.0 ; Bipolar disorder, in partial remission, most recent episode manic F31.73 and ADHD (attention deficit hyperactivity disorder), combined type F90.2 [facility] [address] [facility] [id number], [place] [address] Apr, [facility] [id number], [place] [address] Apr, [facility] [address] [facility] [id number] [address] Apr, Chronic GERD K21.9 ; Chronic seasonal allergic rhinitis, unspecified trigger J30.2 ; Urinary incontinence, unspecified type R32 and Encounter for immunization Z23 [facility] [address] [facility] [id number], [place] [address] Mar, [facility] [address] [facility] [id number], [place] [address] Mar, ADHD (attention deficit hyperactivity disorder), combined type F90.2 ; Bipolar disorder, in partial remission, most recent episode manic F31.73 ; Autism spectrum disorder F84.0 and Borderline personality disorder F60.3 IMMUNIZATIONS No Known Immunizations SOCIAL HISTORY Never Assessed REASON FOR VISIT focalin 06/12/2017 PLAN OF CARE VITAL SIGNS MEDICATIONS Medication Instructions Dosage Frequency Start Date End Date Duration Status Focalin 5 mg Orally at 3pm 1 tablet May, 28 days Active Focalin 10 mg Orally [...]
--- OUTSIDE RECORDS SUMMARY | 2019-01-09 22:53 | XMS REPORT ---
Author Author REBEL SAENZ [facility] Address [address] [place] [address] Phone Unavailable Care Team Providers Care Livestock Haulier Name Role Phone REBEL SAENZ Unavailable Unavailable PROBLEMS Type Condition ICD9-CM Code CLT78-AN Code Onset Dates Condition Status SNOMED Code Problem Bipolar disorder, in partial remission, most recent episode manic F31.73 Active 60438565 Problem ADHD (attention deficit hyperactivity disorder), combined type F90.2 Active 81732065 Problem Autism spectrum disorder F84.0 Active 02710129 Problem Borderline personality disorder F60.3 Active 92823428 Problem Other obesity due to excess calories E66.09 Active 629123548 Problem Acne vulgaris L70.0 Active 00326810 Problem Urinary incontinence, unspecified type R32 Active 259938606 Problem Chronic seasonal allergic rhinitis, unspecified trigger J30.2 Active 440266044 Problem Body mass index (BMI) of 32.0-32.9 in adult Z68.32 Active 252605961 Problem Chronic GERD K21.9 Active 015094299 ALLERGIES Substance Reaction Event Type Date Status Phenergan hives Drug Allergy May, Active Depakote concentration problems Drug Allergy May, Active ENCOUNTERS Encounter Location Date Diagnosis [facility] [id number] [address] Jan, [facility] [id number] [place] [id number] Dec, [facility] [id number] [address] Dec, ADHD (attention deficit hyperactivity disorder), combined type F90.2 ; Bipolar disorder, in partial remission, most recent episode manic F31.73 ; Borderline personality disorder F60.3 and Autism spectrum disorder F84.0 [facility] [id number] [address] November, ADHD (attention deficit hyperactivity disorder), combined type F90.2 [facility] [address] [address] November, [facility] [id number] [place] [address] November, [facility] [id number] [place] [address] November, [facility] [id number] [place] [address] Oct, Bipolar disorder, in partial remission, most recent episode manic F31.73 [facility] [id number] [place] [address] Oct, ADHD (attention deficit hyperactivity disorder), combined type F90.2 [facility] [id number] [place] [address] Oct, [facility] [id number] [place] [address] Oct, [facility] [id number] [place] [address] Oct, ADHD (attention deficit hyperactivity disorder), combined [...] (BMI) of 32.0-32.9 in adult Z68.32 [facility] [id number] [place] [address] Sep, [facility] [id number] [place] [address] Sep, Borderline personality disorder F60.3 [facility] [address] [id number] [address] Aug, Borderline personality disorder F60.3 [facility] [address] [id number] [address] Aug, [facility] [address] [address] Jul, Borderline personality disorder F60.3 ; Autism spectrum disorder F84.0 ; Bipolar disorder, in partial remission, most recent episode manic F31.73 and ADHD (attention deficit hyperactivity disorder), combined type F90.2 [facility] [address] [address] Jul, [facility] [id number] [place] [id number] Jul, Dental examination Z01.20 [facility] [id number] [place] [address] Jun, [facility] [id number] [place] [address] May, [facility] [id number] [place] [id number] May, Dental examination Z01.20 [facility] [address] [address] May, [facility] [address] [place] [address] May, High risk medication use Z79.899 [facility] [address] [address] May, [facility] [id number] [place] [address] May, [facility] [address] [address] Apr, High risk medication use Z79.899 ; Borderline personality disorder F60.3 ; Autism spectrum disorder F84.0 ; Bipolar disorder, in partial remission, most recent episode manic F31.73 and ADHD (attention deficit hyperactivity disorder), combined type F90.2 [place] [address] [place] [address] Apr, [place] [address] [address] Apr, [place] [id number] [place] [address] Apr, Chronic GERD K21.9 ; Chronic seasonal allergic rhinitis, unspecified trigger J30.2 ; Urinary incontinence, unspecified type R32 and Encounter for immunization Z23 [place] [id number] [place] [address] Mar, [place] [id number] [place] [address] Mar, ADHD (attention deficit hyperactivity disorder), combined type F90.2 ; Bipolar disorder, in partial remission, most recent episode manic F31.73 ; Autism spectrum disorder F84.0 and Borderline personality disorder F60.3 IMMUNIZATIONS No Known Immunizations SOCIAL HISTORY Never Assessed REASON FOR VISIT dental est. care PLAN OF CARE Activity Details Follow Up hira Reason:restore VITAL SIGNS Blood pressure systolic 123 mmHg 2017-06-11 Blood pressure diastolic 89 mmHg 2017-06-11 MEDICATIONS Medication Instructions Dosage Frequency Start Date End Date Duration Status FluvoxaMINE Maleate ER 150 MG Orally at bedtime 2 capsules 30 days Active Guanfacine HCl 1 MG Orally 3 times a day at 7am, 11 am and 630pm 1 tablet 30 days Active Fanapt 12 MG Orally Twice a day 1 tablet 12h 30 days Active DiphenhydrAMINE HCl 50 MG Orally at bedtime as needed for sleep 2 capsules 30 days Active Singulair 10 MG Orally Once a day 1 tablet in the evening 24h Active Pantoprazole Sodium 40 mg Orally Once a day 1 tablet 24h Apr, 90 days Active Focalin XR 30 MG Orally Once a day in morning 1 capsule Active Perphenazine 8 MG Orally twice a day 1 tablet 12h 30 days Active Benztropine Mesylate 2 MG Orally at bedtime 1 tablet 30 days Active Trileptal 600 MG Orally Twice a day 1 tablet 12h 30 days Active Singulair 10 mg Orally Once a day 1 tablet in the evening 24h Apr, 90 days Active Sonata 10 mg Orally at bedtime as needed for sleep 1 capsule 30 days Active Focalin 10 MG Orally at 10am and 3pm 1 tablet Active Incontinence Supplies - as directed Apr, lifetime Active Focalin 5 MG Orally at 3pm 1 tablet Active RESULTS No Results PROCEDURES Procedure Date Ordered Result Body Site COMP ORAL EVALUATION - NEW/EST PT Jun 11, 2017 BITEWINGS - FOUR FILMS Jun 11, 2017 PROPHYLAXIS - ADULT Jun 11, 2017 PANORAMIC FILM SEE ALSO CODE [id number] Jun 11, 2017 TOPICAL FLUORIDE VARNISH Jun 11, 2017 INSTRUCTIONS MEDICATIONS ADMINISTERED No Known Medications [...]
--- OUTSIDE RECORDS SUMMARY | 2019-01-09 22:53 | XMS REPORT ---
Author Author ALFONZO SILVEIRA [facility] Address [address] [place] [address] Care Team Providers Care Vacuum Extractor Operator Name Role Phone ALFONZO SILVEIRA Unavailable PROBLEMS Type Condition ICD9-CM Code DAU73-LJ Code Onset Dates Condition Status SNOMED Code Problem Bipolar disorder, in partial remission, most recent episode manic F31.73 Active 65213827 Problem ADHD (attention deficit hyperactivity disorder), combined type F90.2 Active 39543284 Problem Autism spectrum disorder F84.0 Active 91441890 Problem Borderline personality disorder F60.3 Active 66397633 Problem Other obesity due to excess calories E66.09 Active 589083072 Problem Acne vulgaris L70.0 Active 81726587 Problem Urinary incontinence, unspecified type R32 Active 011717278 Problem Chronic seasonal allergic rhinitis, unspecified trigger J30.2 Active 419005146 Problem Body mass index (BMI) of 32.0-32.9 in adult Z68.32 Active 153648882 Problem Chronic GERD K21.9 Active 211039880 ALLERGIES Substance Reaction Event Type Date Status Phenergan hives Drug Allergy Mar, Active Depakote concentration problems Drug Allergy Mar, Active ENCOUNTERS Encounter Location Date Diagnosis [facility] [address] [facility] [id number] [id number] Dec, [facility] [place] [id number], [place] [address] November, [facility] [place] [address], [place] [address] November, [facility] [place] [address], [place] [address] November, [facility] [place] [address], [place] [address] Oct, Bipolar disorder, in partial remission, most recent episode manic F31.73 [facility] [place] [address] [place] [address] Oct, ADHD (attention deficit hyperactivity disorder), combined type F90.2 [facility] [place] [address], [place] [address] Oct, [facility] [place] [id number] [place] [address] Oct, [place] [address] [place] [address] Oct, ADHD (attention deficit hyperactivity disorder), combined [...] index (BMI) of 32.0-32.9 in adult Z68.32 [place] [id number] [place] [address] Sep, [place] [id number] [place] [address] Sep, Borderline personality disorder F60.3 [place] [address] [place] [address] Aug, Borderline personality disorder F60.3 [facility] [place] [address], [place] [address] Aug, [place] [id number] [place] [address] Jul, Borderline personality disorder F60.3 ; Autism spectrum disorder F84.0 ; Bipolar disorder, in partial remission, most recent episode manic F31.73 and ADHD (attention deficit hyperactivity disorder), combined type F90.2 [facility] [place] [address], [place] [address] Jul, [facility] [id number] [place] [id number] Jul, Dental examination Z01.20 [facility] [place] [id number] [place] [address] Jun, [facility] [place] [id number] [place] [address] May, [facility] [id number] [place] [id number] May, Dental examination Z01.20 [facility] [place] [id number] [place] [address] May, [facility] [place] [id number] [place] [address] May, High risk medication use Z79.899 [facility] [place] [id number] [place] [address] May, [facility] [place] [id number] [place] [address] May, [facility] [place] [address] [place] [address] Apr, High risk medication use Z79.899 ; Borderline personality disorder F60.3 ; Autism spectrum disorder F84.0 ; Bipolar disorder, in partial remission, most recent episode manic F31.73 and ADHD (attention deficit hyperactivity disorder), combined type F90.2 [facility] [place] [address] [place] [address] Apr, [facility] [place] [id number] [place] [address] Apr, [facility] [place] [address] [place] [address] Apr, Chronic GERD K21.9 ; Chronic seasonal allergic rhinitis, unspecified trigger J30.2 ; Urinary incontinence, unspecified type R32 and Encounter for immunization Z23 [facility] [place] [address] [facility] [id number] [place] [address] Mar, [facility] [place] [address] [facility] [id number] [place] [address] Mar, ADHD (attention deficit hyperactivity disorder), combined type F90.2 ; Bipolar disorder, in partial remission, most recent episode manic F31.73 ; Autism spectrum disorder F84.0 and Borderline personality disorder F60.3 IMMUNIZATIONS No Known Immunizations SOCIAL HISTORY Never Assessed REASON FOR VISIT PHM Updated-ADRN PLAN OF CARE VITAL SIGNS MEDICATIONS Medication Instructions Dosage Frequency Start Date End Date Duration Status Benztropine Mesylate 2 MG Orally Once a day 1 tablet at bedtime 24h 30 days Active Pantoprazole Sodium 20 mg Orally Once a day 1 tablet 24h Active Perphenazine 8 MG Orally twice a day 1 tablet 12h 30 days Active Focalin XR 30 MG Orally Once a day 1 capsule in the morning 24h Mar, Apr, 28 days Active DiphenhydrAMINE HCl 50 MG Orally Once a day at bedtime 2 capsules 30 days Active FluvoxaMINE Maleate ER 150 MG Orally Once a day at bedtime 2 capsules 30 days Active Trileptal 600 MG Orally Twice a day 1 tablet 12h 30 days Active Focalin 5 MG Orally Once a day at 3pm 1 tablet Mar, Apr, 30 days Active Focalin 10 MG Orally Twice a day at 10 am and 3pm 1 tablet Mar, Apr, 30 days Active Sonata 10 MG Orally Once a day 1 capsule at bedtime as needed 24h 30 days Active Singulair 10 MG Orally Once a day 1 tablet in the evening 24h Active Fanapt 12 MG Orally Twice a day 1 tablet 12h 30 days Active Guanfacine HCl 1 MG Orally 3 times a day at 7am, 11 am and 630pm 1 tablet 30 days Active RESULTS No Results PROCEDURES [...]
--- OUTSIDE RECORDS SUMMARY | 2019-01-09 22:53 | XMS REPORT ---
Author Author MANSOOR LIO [facility] Address [address] [place] [address] Care Team Providers Care Hole Puncher Strap Name Role Phone FREDRICKLIO JYA Unavailable PROBLEMS Type Condition ICD9-CM Code WPQ12-SL Code Onset Dates Condition Status SNOMED Code Problem Bipolar disorder, in partial remission, most recent episode manic F31.73 Active 41957222 Problem ADHD (attention deficit hyperactivity disorder), combined type F90.2 Active 37264387 Problem Autism spectrum disorder F84.0 Active 11391851 Problem Borderline personality disorder F60.3 Active 50967405 Problem Other obesity due to excess calories E66.09 Active 411374080 Problem Acne vulgaris L70.0 Active 26811751 Problem Urinary incontinence, unspecified type R32 Active 425770953 Problem Chronic seasonal allergic rhinitis, unspecified trigger J30.2 Active 371508688 Problem Body mass index (BMI) of 32.0-32.9 in adult Z68.32 Active 534744419 Problem Chronic GERD K21.9 Active 533680989 ALLERGIES No Information ENCOUNTERS Encounter Location Date Diagnosis [facility] [id number] [place] [phone] Dec, [facility] [id number] [place] [address] November, [facility] [id number] [place] [address] November, [facility] [address] [address] November, [facility] [id number] [place] [address] November, [facility] [id number] [place] [address] Oct, Bipolar disorder, in partial remission, most recent episode manic F31.73 [facility] [address], [place] [address] Oct, ADHD (attention deficit hyperactivity disorder), combined type F90.2 [facility] [address], [place] [address] Oct, [facility] [id number] [place] [address] Oct, [facility] [address], [place] [address] Oct, ADHD (attention deficit hyperactivity disorder), combined [...] index (BMI) of 32.0-32.9 in adult Z68.32 [place] [id number] [place] [address] Sep, [facility] [address] [place] [address] Sep, Borderline personality disorder F60.3 [facility] [address], [place] [address] Aug, Borderline personality disorder F60.3 [facility] [address], [place] [address] Aug, [facility] [address] [place] [address] Jul, Borderline personality disorder F60.3 ; Autism spectrum disorder F84.0 ; Bipolar disorder, in partial remission, most recent episode manic F31.73 and ADHD (attention deficit hyperactivity disorder), combined type F90.2 [facility] [address] [facility] [id number], [place] [address] Jul, [facility] [address] [place] [phone] Jul, Dental examination Z01.20 [facility] [address], [place] [address] Jun, [facility] [id number] [place] [address] May, [facility] [address] [place] [phone] May, Dental examination Z01.20 [facility] [id number] [place] [address] May, [facility] [id number] [place] [address] May, High risk medication use Z79.899 [facility] [address], [place] [address] May, [facility] [id number] [place] [address] May, [facility] [address], [place] [address] Apr, High risk medication use Z79.899 ; Borderline personality disorder F60.3 ; Autism spectrum disorder F84.0 ; Bipolar disorder, in partial remission, most recent episode manic F31.73 and ADHD (attention deficit hyperactivity disorder), combined type F90.2 [facility] [address], [place] [address] Apr, [facility] [id number] [address] Apr, [facility] [address], [place] [address] Apr, Chronic GERD K21.9 ; Chronic seasonal allergic rhinitis, unspecified trigger J30.2 ; Urinary incontinence, unspecified type R32 and Encounter for immunization Z23 [facility] [address] [facility] [id number] [address] Mar, [facility] [address] [facility] [id number] [place] [address] Mar, ADHD (attention deficit hyperactivity disorder), combined type F90.2 ; Bipolar disorder, in partial remission, most recent episode manic F31.73 ; Autism spectrum disorder F84.0 and Borderline personality disorder F60.3 IMMUNIZATIONS No Known Immunizations SOCIAL HISTORY Never Assessed REASON FOR VISIT FOCALIN XR (Brand) note PLAN OF CARE VITAL SIGNS MEDICATIONS Unknown [...]
--- OUTSIDE RECORDS SUMMARY | 2019-01-09 22:53 | XMS REPORT | Continuity of Care Document ---
Author Organization Unknown Address Unknown Allergies There is no data. Medications There is no data. Problems There is no data. Procedures There is no data. Results Test Result Range TSH - 05/20/17 08:06 TSH 2.16 mIU/L 0.50-4.30 Encounters ACCT No. Visit Date/Time Discharge Status Pt. Type Provider Facility Loc./Unit Complaint [id number] 11/16/2018 13:20:00 11/16/2018 23:59:59 [facility] Outpatient [facility] [id number] 05/20/2017 08:00:00 Document Registration
--- OUTSIDE RECORDS SUMMARY | 2019-01-09 22:53 | XMS REPORT ---
Author Author MANSOOR LIO [facility] Address [address] [place] [address] Care Team Providers Care Child & Adolescent Psychiatrist Name Role Phone FREDRICKLIO JAY Unavailable PROBLEMS Type Condition ICD9-CM Code SZU13-OI Code Onset Dates Condition Status SNOMED Code Problem Bipolar disorder, in partial remission, most recent episode manic F31.73 Active 79982927 Problem ADHD (attention deficit hyperactivity disorder), combined type F90.2 Active 42357088 Problem Autism spectrum disorder F84.0 Active 24421058 Problem Borderline personality disorder F60.3 Active 55697609 Problem Other obesity due to excess calories E66.09 Active 270111854 Problem Acne vulgaris L70.0 Active 36343154 Problem Urinary incontinence, unspecified type R32 Active 374866373 Problem Chronic seasonal allergic rhinitis, unspecified trigger J30.2 Active 037833665 Problem Body mass index (BMI) of 32.0-32.9 in adult Z68.32 Active 157066263 Problem Chronic GERD K21.9 Active 486757001 ALLERGIES No Information ENCOUNTERS Encounter Location Date Diagnosis [facility] [id number] [address] Jan, [facility] [id number] [place] [id number] Dec, [facility] [id number] [place] [address] Dec, ADHD (attention deficit hyperactivity disorder), combined type F90.2 ; Bipolar disorder, in partial remission, most recent episode manic F31.73 ; Borderline personality disorder F60.3 and Autism spectrum disorder F84.0 [facility] [address], [place] [address] November, ADHD (attention deficit hyperactivity disorder), combined type F90.2 [facility] [id number] [address] November, [facility] [address] [place] [address] November, [facility] [address], [place] [address] November, [facility] [id number] [place] [address] Oct, Bipolar disorder, in partial remission, most recent episode manic F31.73 [facility] [address] [place] [address] Oct, ADHD (attention deficit hyperactivity disorder), combined type F90.2 [facility] [address], [place] [address] Oct, [facility] [id number] [place] [address] Oct, [facility] [address], [place] [address] Oct, ADHD (attention deficit hyperactivity disorder), combined [...] index (BMI) of 32.0-32.9 in adult Z68.32 [facility] [address], [place] [address] Sep, [facility] [address], [place] [address] Sep, Borderline personality disorder F60.3 [facility] [address], [place] [address] Aug, Borderline personality disorder F60.3 [facility] [address] [facility] [id number], [place] [address] Aug, [facility] [id number], [place] [address] Jul, Borderline personality disorder F60.3 ; Autism spectrum disorder F84.0 ; Bipolar disorder, in partial remission, most recent episode manic F31.73 and ADHD (attention deficit hyperactivity disorder), combined type F90.2 [facility] [address] [facility] [id number], [place] [address] Jul, [facility] [id number] [place] [phone] Jul, Dental examination Z01.20 [facility] [id number], [place] [address] Jun, [facility] [address] [place] [address] May, [facility] [address] [id number] May, Dental examination Z01.20 [facility] [id number] [place] [address] May, [facility] [address], [place] [address] May, High risk medication use Z79.899 [facility] [address], [place] [address] May, [facility] [address] [facility] [id number], [place] [address] May, [facility] [id number], [place] [address] Apr, High risk medication use Z79.899 ; Borderline personality disorder F60.3 ; Autism spectrum disorder F84.0 ; Bipolar disorder, in partial remission, most recent episode manic F31.73 and ADHD (attention deficit hyperactivity disorder), combined type F90.2 [facility] [id number], [place] [address] Apr, [facility] [address], [place] [address] Apr, [facility] [address], [place] [address] Apr, Chronic GERD K21.9 ; Chronic seasonal allergic rhinitis, unspecified trigger J30.2 ; Urinary incontinence, unspecified type R32 and Encounter for immunization Z23 [place] [address], [place] [address] Mar, [place] [address], [place] [address] Mar, ADHD (attention deficit hyperactivity disorder), combined type F90.2 ; Bipolar disorder, in partial remission, most recent episode manic F31.73 ; Autism spectrum disorder F84.0 and Borderline personality disorder F60.3 IMMUNIZATIONS No Known Immunizations SOCIAL HISTORY Never Assessed REASON FOR VISIT Name-brand Focalin PLAN OF CARE VITAL SIGNS MEDICATIONS Medication Instructions Dosage Frequency Start Date End Date Duration Status Focalin XR 30 MG Orally Once a day in morning 1 capsule Jun, Jul, 28 days Active RESULTS No Results [...] and adenoids 2005 Surgical History wisdom teeth 2015 Hospitalization History Multiple psych stays(states 25 times)
--- OUTSIDE RECORDS SUMMARY | 2019-01-09 22:53 | XMS REPORT ---
Author Author MANSOOR LIO [facility] Address [address] [place] [address] Care Team Providers Care Chemical Pumper Name Role Phone FREDRICKMART JAYA Unavailable PROBLEMS Type Condition ICD9-CM Code IHE92-QU Code Onset Dates Condition Status SNOMED Code Problem Bipolar disorder, in partial remission, most recent episode manic F31.73 Active 69576158 Problem ADHD (attention deficit hyperactivity disorder), combined type F90.2 Active 64343530 Problem Autism spectrum disorder F84.0 Active 61041565 Problem Borderline personality disorder F60.3 Active 37370403 Problem Other obesity due to excess calories E66.09 Active 913091033 Problem Acne vulgaris L70.0 Active 02658477 Problem Urinary incontinence, unspecified type R32 Active 633616063 Problem Chronic seasonal allergic rhinitis, unspecified trigger J30.2 Active 571045906 Problem Body mass index (BMI) of 32.0-32.9 in adult Z68.32 Active 021518901 Problem Chronic GERD K21.9 Active 056423535 ALLERGIES No Information ENCOUNTERS Encounter Location Date Diagnosis [facility] [id number] [place] [phone] Dec, [facility] [id number] [place] [address] November, [facility] [address] [place] [address] November, ADHD (attention deficit hyperactivity disorder), combined type F90.2 [facility] [id number] [place] [address] November, [facility] [id number] [place] [address] November, [facility] [address] [place] [address] November, [facility] [id number] [place] [address] Oct, Bipolar disorder, in partial remission, most recent episode manic F31.73 [facility] [id number] [place] [address] Oct, ADHD (attention deficit hyperactivity disorder), combined type F90.2 [facility] [id number] [place] [address] Oct, [place] [id number] [place] [address] Oct, [place] [id number] [place] [address] Oct, ADHD (attention deficit hyperactivity disorder), combined [...] index (BMI) of 32.0-32.9 in adult Z68.32 [place] [address] [address] Sep, [facility] [id number] [place] [address] Sep, Borderline personality disorder F60.3 [facility] [address] [place] [address] Aug, Borderline personality disorder F60.3 [facility] [id number] [place] [address] Aug, [facility] [address] [place] [address] Jul, Borderline personality disorder F60.3 ; Autism spectrum disorder F84.0 ; Bipolar disorder, in partial remission, most recent episode manic F31.73 and ADHD (attention deficit hyperactivity disorder), combined type F90.2 [facility] [address] [id number] [address] Jul, [facility] [address] [id number] [id number] Jul, Dental examination Z01.20 [facility] [address] [id number] [address] Jun, [facility] [id number] [place] [address] May, [facility] [address] [id number] [id number] May, Dental examination Z01.20 [facility] [id number] [place] [address] May, [facility] [id number] [place] [address] May, High risk medication use Z79.899 [facility] [id number] [place] [address] May, [facility] [id number] [address] May, [facility] [id number] [address] Apr, High risk medication use Z79.899 ; Borderline personality disorder F60.3 ; Autism spectrum disorder F84.0 ; Bipolar disorder, in partial remission, most recent episode manic F31.73 and ADHD (attention deficit hyperactivity disorder), combined type F90.2 [facility] [address] [facility] [id number] [address] Apr, [facility] [id number] [address] Apr, [facility] [address] [facility] [id number] [place] [address] Apr, Chronic GERD K21.9 ; Chronic seasonal allergic rhinitis, unspecified trigger J30.2 ; Urinary incontinence, unspecified type R32 and Encounter for immunization Z23 [facility] [address] [facility] [id number] [address] Mar, [facility] [id number] [address] Mar, ADHD (attention deficit hyperactivity disorder), combined type F90.2 ; Bipolar disorder, in partial remission, most recent episode manic F31.73 ; Autism spectrum disorder F84.0 and Borderline personality disorder F60.3 IMMUNIZATIONS No Known Immunizations SOCIAL HISTORY Never Assessed REASON FOR VISIT PA for Focalin XR (Brand) PLAN OF CARE VITAL SIGNS MEDICATIONS Unknown [...]
--- NOTE | 2019-01-09 23:19 | ED EENT ---
History of Present Illness General Chief Complaint: Foreign Body Stated Complaint: EAR BUD LODGED IN LEFT EAR Nursing Triage Note: Patient reports ear bud stuck in L ear Source: patient, family (mother) Exam Limitations: no limitations History of Present Illness Date Seen by Provider: Jan 09, 2019 Time Seen by Provider: 23:12 Initial Comments 18-year-old male patient presents to the emergency department complaints of an ear bud stuck in the left ear. Denies pain or drainage. They attempted to retrieve it at home. Timing/Duration: other (just prior to arrival) Location: ear (L) Prearrival Treatment: other (attempted removal at home) Allergies and Home Medications Allergies Coded Allergies: divalproex sodium (Verified Allergy, Unknown, 06/08/17) promethazine (Verified Allergy, Unknown, 06/08/17) Patient Home Medication List Home Medication List Reviewed: Yes Review of Systems Review of Systems Constitutional: no symptoms reported Eyes: No Symptoms Reported Ears: See HPI; Denies Pain, Denies Tinnitus, Denies Bloody Discharge, Denies Clear Discharge, Denies Serosanguinous Discharge Nose: no symptoms reported Mouth: no symptoms reported Throat: no symptoms reported Respiratory: no symptoms reported Cardiovascular: no symptoms reported Skin: no symptoms reported All Other Systems Reviewed Negative Unless Noted: Yes (Negative excepted noted.) Past Mjisyxy-Ajkskk-Hlgtyt Hx Past Med/Social Hx: Reviewed Nursing Past Med/Soc Hx Patient Social History Alcohol Use: Denies Use Recreational Drug Use: No Recent Foreign Travel: No Contact w/Someone Who Travel: No Recent Infectious Disease Expo: No Past Medical History Surgeries: Yes (DENTAL) Adenoidectomy, Tonsillectomy Respiratory: No Cardiac: No Neurological: Yes Seizure Disorder Genitourinary: No Gastrointestinal: No Musculoskeletal: No Endocrine: No HEENT: No Cancer: No Psychosocial: Yes (AUTISM, MOOD DISORDER) ADD/ADHD, Anxiety, Violent Behavior Integumentary: No Blood Disorders: No Adverse Reaction/Blood Tranf: No Family Medical History Reviewed Nursing Family Hx No Pertinent Family Hx Physical Exam Vital Signs Vital Signs - First Documented 01/09/19 23:08 Temp 98.8 Pulse 76 Resp 18 B/P (MAP) 146/96 (113) Pulse Ox 98 Height, Weight, BMI Height: 5'7.00" Weight: 250lbs. oz. 113.788775qc; BMI Method:Stated General Appearance: WD/WN, no apparent distress Eyes: bilateral eye normal inspection, bilateral eye PERRL, bilateral eye EOMI Ears: right ear canal normal, right ear TM normal; left ear foreign body (foreign-body to the left external ear canal consistent with an ear bud); bilateral ear auricle normal Nose: normal inspection Mouth/Throat: normal mouth inspection, pharynx normal Cardiovascular: regular rate, rhythm, no murmur Respiratory: lungs clear, normal breath sounds, no respiratory distress, no accessory muscle use Neurologic/Psychiatric: alert, normal mood/affect, oriented x 3 Skin: normal color, warm/dry Procedures/Interventions Ear : Ear Location: Left (Left) Foreign Body Removal: FB in the Ear Canal Use of: Forceps Progress/Conclusion Ear bud removed without difficulty. Following FB removal, external ear canal and TM normal. Patient tolerated the procedure well. Blood loss none. Progress/Results/Core Measures Results/Orders Vital Signs/I&O 01/09/19 23:08 Temp 98.8 Pulse 76 Resp 18 B/P (MAP) 146/96 (113) Pulse Ox 98 Blood Pressure Mean: 113 Departure Communication (Admissions) Patient seen, evaluated, and foreign-body removal left ear. Plan for discharge to home. Impression Primary Impression: Foreign body in ear Qualified Codes: T16.2XXA - Foreign body in left ear, initial encounter Disposition: 01 HOME, SELF-CARE Condition: Improved Departure-Patient Inst. Decision time for Depature: 23:18 Referrals: [facility] (PCP) Primary Care Physician Patient Instructions: Foreign Body in Ear, Child (DC) Add. Discharge Instructions: All discharge instructions reviewed with patient and/or family. Voiced understanding. Tylenol Extra Strength lglv-syd-sfqmleb if needed for pain. Follow-up with your primary care provider if needed. Return to the emergency department for pain, drainage, fever, or any other concerns. VALERIE BADILLO Jan 09, 2019 23:19
[2019-01-09 23:25] VITALS: BP 146/96
== END 2019-01-09 23:25 | disposition home or self-care (01) ==
LOC: EDUNIT# 22:40 → ER 22:42
DX: T16.2XXA Foreign body in left ear, initial encounter (principal); G40.909 Epilepsy, unspecified, not intractable, without status epilepticus; F41.9 Anxiety disorder, unspecified; F90.9 Attention-deficit hyperactivity disorder, unspecified type; F84.0 Autistic disorder; Z88.8 Allergy status to other drugs, medicaments and biological substances; Z90.89 Acquired absence of other organs
CPT/HCPCS: 99282

== ENCOUNTER → 2021-04-25 | Outpatient (CLI) | payer MEDICAID ==
[~2021-04-25] MED LIST changes: +DIPH-958; -DIPH25CA45; +PANT20TA18; -PANT20TA3
--- NOTE | 2021-04-25 14:08 | Diagnostic Imaging Report ---
INDICATION: Bilateral breast lumps. COMPARISON: No prior mammograms are available for comparison. 2-D and 3-D bilateral MLO mammography was performed. BB markers were placed at the areas of palpable abnormality in both breasts. Both breasts are primarily fatty. No mass is identified. No malignant-appearing microcalcifications are seen. There are no findings to suggest gynecomastia. The axillae are unremarkable. IMPRESSION: BI-RADS Category 0 No mammographic features suspicious for malignancy are identified. Even so, directed sonographic interrogation of the area of palpable abnormality in both breasts is recommended and will be performed today. ACR BI-RADS Category 0: Incomplete. (Needs additional imaging evaluation). Result letter will be mailed to the patient. Note: At least 10% of breast cancer is not imaged by mammography. Dictated by: Dictated on workstation # [id number]
--- NOTE | 2021-04-25 14:51 | Diagnostic Imaging Report ---
Indication: Bilateral breast lumps. Correlation is made with diagnostic mammogram earlier same day. Sonographic interrogation of the area of lumps bilateral breast was performed. This corresponds to the 11 o'clock location of the right breast, 10 cm from the nipple as well as the 10 and 4:00 location of the left breast, 8 and 3 cm from the nipple respectively. No sonographic abnormality is identified within either breast. No solid or cystic masses detected. IMPRESSION: BI-RADS Category 1 No sonographic abnormality is detected. ACR BI-RADS Category 1: Negative. Dictated by: Dictated on workstation # [id number]
== END ==
LOC: RAD 13:45
PROVIDERS: ATTEND Pediatrics
DX: N63.11 Unspecified lump in the right breast, upper outer quadrant (principal); N63.22 Unspecified lump in the left breast, upper inner quadrant; N63.23 Unspecified lump in the left breast, lower outer quadrant
CPT/HCPCS: 76642; 77066; G0279; 77062

== ENCOUNTER → 2021-12-31 | Outpatient (CLI) | payer MEDICAID ==
--- NOTE | 2021-12-31 11:57 | Diagnostic Imaging Report ---
INDICATION: Dysphasia. The procedure was performed in conjunction with speech pathology. Video fluoroscopy was performed during the swallowing of barium in multiple consistencies. A total of 0.5 minutes of fluoroscopic time was utilized. The patient ingested thin and thick barium as well as cracker consistency and pudding consistency. The oral phase was unremarkable. There is normal epiglottic tilt and laryngeal elevation. No penetration or aspiration was observed. IMPRESSION: Normal modified barium swallow. Dictated by: Dictated on workstation # [id number]
== END ==
LOC: RAD 10:00
PROVIDERS: ATTEND Physician Assistant
DX: R13.10 Dysphagia, unspecified (principal)
CPT/HCPCS: 74230

== ENCOUNTER 2022-01-04 20:29 | Emergency (ER) | payer MEDICAID ==
[~2022-01-04] VITALS: Ht 172.7 cm; Wt 115.9 kg
[2022-01-04 20:45] VITALS: BP 148/119
--- NOTE | 2022-01-04 21:39 | ED GI ---
General Chief Complaint: Rect Problems Stated Complaint: Bloody Diarrhea Source of Information: Patient Exam Limitations: No Limitations History of Present Illness Date Seen by Provider: Jan 04, 2022 Time Seen by Provider: 21:36 Initial Comments This is a 21-year-old male that presents to the emergency room for evaluation of diarrhea and blood in his stools. He states that he recently completed 10 days of amoxicillin for an ear infection and then today he was having some queasiness and went to the bathroom and had significant diarrhea.. He states that he took some Imodium and then the second round of diarrhea was bloody. He also was having some very mild left-sided abdominal pain. He otherwise denies fever, vomiting, ill contacts or ingestion of any suspicious foods. Timing/Duration: 1 Day Severity/Quality: Moderate, Cramping Associated Symptoms: Denies Symptoms Allergies and Home Medications Allergies Coded Allergies: divalproex sodium (Verified Allergy, Unknown, 06/08/17) promethazine (Verified Allergy, Unknown, 06/08/17) Patient Home Medication List Home Medication List Reviewed: Yes Benztropine Mesylate (Benztropine Mesylate) 2 Mg Tablet, (Reported) Entered as Reported by: PO TELLEZ on 06/08/17 151 Dexmethylphenidate HCl (Focalin Xr) 30 Mg Cpbp.50.50, (Reported) Entered as Reported by: PO TELLEZ on 06/08/17 151 Diphenhydramine HCl (Banophen) 50 Mg Capsule, (Reported) Entered as Reported by: PO TELLEZ on 06/08/171515 Diphenhydramine HCl (Banophen) 25 Mg Capsule, (Reported) Entered as Reported by: PO TELLEZ on 06/08/17 151 Fluvoxamine Maleate (Fluvoxamine Maleate ER) 150 Mg Cap.er.24h, (Reported) Entered as Reported by: PO TELLEZ on 06/08/17 151 Guanfacine HCl (Guanfacine HCl) 1 Mg Tablet, (Reported) Entered as Reported by: PO TELLEZ on 06/08/17 151 Iloperidone (Fanapt) 12 Mg Tablet, (Reported) Entered as Reported by: PO TELLEZ on 06/08/171515 Oxcarbazepine (Oxcarbazepine) 600 Mg Tablet, (Reported) Entered as Reported by: PO TELLEZ on 06/08/171515 Pantoprazole Sodium (Pantoprazole Sodium) 20 Mg Tablet., (Reported) Entered as Reported by: PO TELLEZ on 06/08/171515 Perphenazine (Perphenazine) 8 Mg Tablet, (Reported) Entered as Reported by: PO TELLEZ on 06/08/171515 Review of Systems Review of Systems Constitutional: no symptoms reported EENTM: No Symptoms Reported Respiratory: No Symptoms Reported Cardiovascular: No Symptoms Reported Gastrointestinal: Abdominal Pain, Diarrhea, Rectal Bleeding Genitourinary: No Symptoms Reported Musculoskeletal: no symptoms reported Skin: no symptoms reported Psychiatric/Neurological: No Symptoms Reported Past Pkjqxww-Uhriqt-Pjwjzc Hx Patient Social History Tobacco Use?: Yes Tobacco type used: Cigarettes Smoking Status: Light Tobacco Smoker Smokeless Tobacco Frequency: Never a User Use of E-Cig and/or Vaping dev: No Use of E-Cig and/or Vaping Juan: Never a User Substance use?: No Alcohol Use?: Yes Alcohol type: Beer Alcohol Frequency: Once in a while Pt feels they are or have been: No Immunizations Up To Date Influenza Vaccine Up-to-Date: No; Not Current First/Initial COVID19 Vaccinat: 2020 - pt is unsure of exact dates and does not have card Second COVID19 Vaccination Natanael: 2020 - pt is unsure of exact dates and does not have card 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 oz. 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 (01/04/22 21:31) Isolation Central Supply Req (01/04/22 21:31) Departure Communication (Admissions) Patient is afebrile, non-toxic and in no distress. His abdomen has minimal left sided tenderness, no rebound or guarding. Heme positive on exam. At this time we will attempt to get a stool culture and the patient will have close follow up. The bloody diarrhea is minimal at this point. We discussed very detailed home care and return precautions including developing fever, severe pain, vomiting. I do not feel that there is any evidence of acute diverticulitis, perforation, obstruction. Patient is in agreement to the care plan. Impression Primary Impression: Bloody diarrhea Disposition: 01 HOME, SELF-CARE Condition: Stable Departure-Patient Inst. Decision time for Depature: 21:56 Referrals: [facility] (PCP/Family) Primary Care Physician Patient Instructions: Bloody Stools, Adult (DC) Add. Discharge Instructions: At this time we have sent your stools for culture. We will follow-up with you on these results. If you develop worsening pain, fever, increased bleeding or any other concerning symptoms I would like you to return to the emergency room as we discussed. All discharge instructions reviewed with patient and/or family. Voiced understanding. CRISTO DAVISON Jan 04, 2022 21:39
== END 2022-01-04 22:15 | disposition home or self-care (01) ==
LOC: EDUNIT# 20:29 → ER 20:31
DX: R19.7 Diarrhea, unspecified (principal); K92.1 Melena; F17.210 Nicotine dependence, cigarettes, uncomplicated
CPT/HCPCS: 87015; 87045; 87046; 87324; 87449; 87899

== ENCOUNTER 2022-02-20 00:53 | Emergency (ER) | payer MEDICAID ==
[~2022-02-20] VITALS: Ht 172.7 cm; Wt 116.0 kg
[2022-02-20] MEDS ORDERED: CARI3CAP (00:58)
[2022-02-20] MEDS ORDERED: PRED15SO5 (00:58)
[2022-02-20] MEDS ORDERED: LINA72CA (00:58)
[2022-02-20] MEDS ORDERED: DEXM10TA5 (00:58)
[2022-02-20 01:24] LABS: BILIRUBIN,URINE NEGATIVE (NEGATIVE); CLARITY,URINE CLEAR; COLOR,URINE YELLOW; GLUCOSE, URINE (UA) NEGATIVE (NEGATIVE); KETONES,URINE NEGATIVE (NEGATIVE); LEUKOCYTE ESTERASE ,URINE NEGATIVE (NEGATIVE); NITRITE,URINE NEGATIVE (NEGATIVE); PROTEIN,URINE NEGATIVE (NEGATIVE)
[2022-02-20 01:29] LABS: BACTERIA,URINE NEGATIVE /HPF; SQUAMOUS EPITHELIAL CELL,UR RARE /HPF
[2022-02-20 01:56] LABS: BASOPHILS % (AUTO) 0 % (0-10); EOSINOPHILS # (AUTO) 0.1 10^3/uL (0.0-0.3); EOSINOPHILS % (AUTO) 2 % (0-10); HEMATOCRIT 47 % (40-54); HEMOGLOBIN 15.1 g/dL (13.3-17.7); LYMPHOCYTES # (AUTO) 2.8 10^3/uL (1.0-4.0); LYMPHOCYTES % (AUTO) 37 % (12-44); MEAN CORPUSCULAR HEMOGLOBIN 25 pg (25-34); MEAN CORPUSCULAR HGB CONC 32 g/dL (32-36); MEAN CORPUSCULAR VOLUME 79 fL (80-99); MONOCYTES # (AUTO) 0.8 10^3/uL (0.0-1.0); MONOCYTES % (AUTO) 11 % (0-12); NEUTROPHILS # (AUTO) 3.7 10^3/uL (1.8-7.8); NEUTROPHILS % (AUTO) 50 % (42-75); PLATELET COUNT 314 10^3/uL (130-400); WHITE BLOOD COUNT 7.4 10^3/uL (4.3-11.0)
[2022-02-20 02:00] LABS: ALBUMIN 4.3 GM/DL (3.2-4.5)
[2022-02-20] MEDS ORDERED: ONDANSETRON 4 MG/2 ML (SDV) Z0FRAN IVP ONE (02:00)
[2022-02-20 02:02] LABS: CALCIUM 9.2 MG/DL (8.5-10.1)
[2022-02-20 02:03] LABS: TOTAL PROTEIN 7.4 GM/DL (6.4-8.2)
[2022-02-20 02:05] LABS: BILIRUBIN,TOTAL 0.2 MG/DL (0.1-1.0)
[2022-02-20 02:07] LABS: CREATININE SERUM 0.97 MG/DL (0.60-1.30)
[2022-02-20] MEDS ORDERED: NS 100 ML (IVPB) BAG IV ONE (03:00)
[2022-02-20] MEDS ORDERED: IOHEXOL 350 MG/ML 100 ML (OMNIPAQUE 350) VIAL IV ONE (03:00)
[2022-02-20] MEDS ORDERED: HOLD METFORMIN - RECEIVED CONTRAST 20 ML VIAL IV SCH (03:00)
--- NOTE | 2022-02-20 04:11 | ED Abdominal Pain ---
General Chief Complaint: Abdominal/GI Problems Stated Complaint: ABD PAIN Nursing Triage Note: brought in by [facility] c/o rlq abdominal pain/swelling x10 min prior to calling ems. reports diarrhea x1 day. Source of Information: Patient Exam Limitations: No Limitations History of Present Illness Date Seen by Provider: Feb 20, 2022 Time Seen by Provider: 01:02 Initial Comments This 21-year-old young man presents to the emergency room with complaints of abdominal pain and bloating. Pain seems to be focused in the right lower quadrant. This was of fairly sudden onset just prior to arrival. He did have an episode of diarrhea as well. He has been nauseated. He states his urine feels "acidic". He is afebrile. He has pain with movements and walking. Allergies and Home Medications Allergies Coded Allergies: divalproex sodium (Verified Allergy, Unknown, 06/08/17) promethazine (Verified Allergy, Unknown, 06/08/17) Patient Home Medication List Home Medication List Reviewed: Yes Benztropine Mesylate (Benztropine Mesylate) 2 Mg Tablet, (Reported) Entered as Reported by: PO TELLEZ on 06/08/17 151 Cariprazine Hydrochloride (Vraylar) 3 Mg Capsule, (Reported) Entered as Reported by: JEANMARIE DOMINGUEZ on 02/20/2257 Last Action: New Order Dexmethylphenidate HCl (Focalin Xr) 30 Mg Cpbp.50.50, (Reported) Entered as Reported by: PO TELLEZ on 06/08/17 151 Dexmethylphenidate HCl (Dexmethylphenidate HCl) 10 Mg Tablet, (Reported) Entered as Reported by: JEANMARIE DOMINGUEZ on 02/20/2257 Last Action: New Order Diphenhydramine HCl (Banophen) 50 Mg Capsule, (Reported) Entered as Reported by: PO TELLEZ on 06/08/17 151 Diphenhydramine HCl (Banophen) 25 Mg Capsule, (Reported) Entered as Reported by: PO TELLEZ on 06/08/17 151 Fluvoxamine Maleate (Fluvoxamine Maleate ER) 150 Mg Cap.er.24h, (Reported) Entered as Reported by: PO TELLEZ on 06/08/17 151 Guanfacine HCl (Guanfacine HCl) 1 Mg Tablet, (Reported) Entered as Reported by: PO TELLEZ on 06/08/171515 Iloperidone (Fanapt) 12 Mg Tablet, (Reported) Entered as Reported by: PO TELLEZ on 06/08/171515 Linaclotide (Linzess) 72 Mcg Capsule, (Reported) Entered as Reported by: JEANMARIE DOMINGUEZ on 02/20/2257 Last Action: New Order Oxcarbazepine (Oxcarbazepine) 600 Mg Tablet, (Reported) Entered as Reported by: PO TELLEZ on 06/08/171515 Pantoprazole Sodium (Pantoprazole Sodium) 20 Mg Tablet.dr, (Reported) Entered as Reported by: PO TELLEZ on 06/08/171515 Perphenazine (Perphenazine) 8 Mg Tablet, (Reported) Entered as Reported by: PO TELLEZ on 06/08/171515 Prednisolone Sod Phosphate (Prednisolone Sodium Phosphate) 15 Mg/5 Ml Solution, (Reported) Entered as Reported by: JEANMARIE DOMINGUEZ on 02/20/2257 Last Action: New Order Review of Systems Review of Systems Constitutional: no symptoms reported EENTM: No Symptoms Reported Respiratory: No Symptoms Reported Cardiovascular: No Symptoms Reported Gastrointestinal: See HPI Genitourinary: See HPI Musculoskeletal: no symptoms reported Skin: no symptoms reported Psychiatric/Neurological: No Symptoms Reported Endocrine: No Symptoms Reported Past Jltdhld-Chekvr-Qxahtb Hx Patient Social History Tobacco Use?: Yes Tobacco type used: Cigarettes Substance use?: No Alcohol Use?: Yes Alcohol Frequency: Once in a while Pt feels they are or have been: No Immunizations Up To Date First/Initial COVID19 Vaccinat: yes Second COVID19 Vaccination Natanael: yes COVID19 Vaccine Primary Care Nurse: [employer] Past Medical History Surgery/Hospitalization HX: dental, t/a, mood disorder, adhd, autism, seizures, htn Surgeries: Yes (DENTAL, hydrocele) Adenoidectomy, Tonsillectomy Respiratory: No Cardiac: Yes Hypertension Neurological: Yes (Autism) Seizure Disorder Genitourinary: No Gastrointestinal: No Musculoskeletal: No Endocrine: No HEENT: No Cancer: No Psychosocial: Yes (AUTISM, MOOD DISORDER) ADD/ADHD, Anxiety, Violent Behavior Integumentary: No Blood Disorders: No Adverse Reaction/Blood Tranf: No Family Medical History No Pertinent Family Hx Physical Exam Vital Signs Vital Signs - First Documented 02/20/22 00:58 Temp 36.9 Pulse 73 Resp 16 B/P (MAP) 155/103 (120) Pulse Ox 98 O2 Delivery Room Air Capillary Refill : Less Than 3 Seconds Height/Weight/BMI Height: 5'7.00" Weight: 250lbs. oz. 113.190389uk; 38.00 BMI Method:Stated General Appearance: WD/WN, no apparent distress HEENT: normal ENT inspection, pharynx normal Neck: normal inspection Respiratory: lungs clear, normal breath sounds, no respiratory distress Cardiovascular: regular rate, rhythm, no edema, no murmur Gastrointestinal: normal bowel sounds, soft, tenderness (Right lower quadrant with positive Rovsing, obturator sign, positive straight leg raise) Extremities: normal inspection, no pedal edema Neurologic/Psychiatric: hop strainer II-XII nml as tested, no motor/sensory deficits, alert, normal mood/affect, oriented x 3 Skin: normal color, warm/dry Progress/Results/Core Measures Results/Orders Lab Results Laboratory Tests Test 02/20/22 01:00 02/20/22 01:19 Range/Units White Blood Count 7.4 4.3-11.0 10^3/uL Red Blood Count 5.99 H 4.30-5.52 10^6/uL Hemoglobin 15.1 13.3-17.7 g/dL Hematocrit 47 40-54 % Mean Corpuscular Volume 79 L 80-99 fL Mean Corpuscular Hemoglobin 25 25-34 pg Mean Corpuscular Hemoglobin Concent 32 32-36 g/dL Red Cell Distribution Width 15.6 H 10.0-14.5 % Platelet Count 314 130-400 10^3/uL Mean Platelet Volume 12.0 9.0-12.2 fL Immature Granulocyte % (Auto) 0 % Neutrophils (%) (Auto) 50 42-75 % Lymphocytes (%) (Auto) 37 12-44 % Monocytes (%) (Auto) 11 0-12 % Eosinophils (%) (Auto) 2 0-10 % Basophils (%) (Auto) 0 0-10 % Neutrophils # (Auto) 3.7 1.8-7.8 10^3/uL Lymphocytes # (Auto) 2.8 1.0-4.0 10^3/uL Monocytes # (Auto) 0.8 0.0-1.0 10^3/uL Eosinophils # (Auto) 0.1 0.0-0.3 10^3/uL Basophils # (Auto) 0.0 0.0-0.1 10^3/uL Immature Granulocyte # (Auto) 0.0 0.0-0.1 10^3/uL Sodium Level 138 135-145 MMOL/L Potassium Level 4.0 3.6-5.0 MMOL/L Chloride Level 105 98-107 MMOL/L Carbon Dioxide Level 23 21-32 MMOL/L Anion Gap 10 5-14 MMOL/L Blood Urea Nitrogen 15 7-18 MG/DL Creatinine 0.97 0.60-1.30 MG/DL Estimat Glomerular Filtration Rate 112 BUN/Creatinine Ratio 15 Glucose Level 88 70-105 MG/DL Calcium Level 9.2 8.5-10.1 MG/DL Corrected Calcium 9.0 8.5-10.1 MG/DL Total Bilirubin 0.2 0.1-1.0 MG/DL Aspartate Amino Transf (AST/SGOT) 16 5-34 U/L Alanine Aminotransferase (ALT/SGPT) 35 0-55 U/L Alkaline Phosphatase 78 40-136 U/L C-Reactive Protein High Sensitivity 0.32 0.00-0.50 MG/DL Total Protein 7.4 6.4-8.2 GM/DL Albumin 4.3 3.2-4.5 GM/DL Lipase 23 8-78 U/L Urine Color YELLOW Urine Clarity CLEAR Urine pH 6.0 5-9 Urine Specific [place] 1.025 H 1.016-1.022 Urine Protein NEGATIVE NEGATIVE Urine Glucose (UA) NEGATIVE NEGATIVE Urine Ketones NEGATIVE NEGATIVE Urine Nitrite NEGATIVE NEGATIVE Urine Bilirubin NEGATIVE NEGATIVE Urine Urobilinogen 0.2 < = 1.0 MG/DL Urine Leukocyte Esterase NEGATIVE NEGATIVE Urine RBC (Auto) NEGATIVE NEGATIVE Urine RBC NONE /HPF Urine WBC NONE /HPF Urine Squamous Epithelial Cells RARE /HPF Urine Crystals NONE /LPF Urine Bacteria NEGATIVE /HPF Urine Casts NONE /LPF Urine Mucus SMALL H /LPF Urine Culture Indicated NO My Orders Orders - PIOTR HIDALGO MD Ua Culture If Indicated (02/20/22 01:02) Cbc With Automated Diff (02/20/22 01:50) Comprehensive Metabolic Panel (02/20/22 01:50) Hs C Reactive Protein (02/20/22 01:50) Lipase (02/20/22 01:50) Ed Iv/Invasive Line Start (02/20/22 01:50) Ondansetron Injection (Zofran Injectio (02/20/22 02:00) Ct Abd/Pelv W (Appendicitis) (02/20/22 02:31) Iohexol Injection (Omnipaque 350 Mg/Ml 1 (02/20/22 03:00) Received Contrast (Hold Metformin- Contr (02/20/22 03:00) Ns (Ivpb) (Sodium Chloride 0.9% Ivpb Bag (02/20/22 03:00) Medications Given in ED Current Medications Medications Dose Ordered Sig/Wali Route Start Time Stop Time Status Last Admin Dose Admin Ondansetron HCl 4 mg ONCE ONCE IVP 02/20/22 02:00 02/20/22 02:01 DC 02/20/22 01:59 4 MG Vital Signs/I&O 02/20/22 02/20/22 00:58 04:15 Temp 36.9 36.6 Pulse 73 57 Resp 16 16 B/P (MAP) 155/103 (120) 156/97 Pulse Ox 98 99 O2 Delivery Room Air Room Air Blood Pressure Mean: 120 Progress Progress Note : Progress Note Nausea was treated with Zofran. Lab work-up was unremarkable. We discussed risks and benefits of CT imaging for evaluation of the appendix and gallbladder. Risks included cost, contrast dye exposure, and radiation exposure. Patient elected to proceed with CT scan acknowledging the risks. CT revealed no evidence of appendicitis or cholecystitis. There were prominent lymph nodes suggestive of mesenteric lymphadenitis. Patient was offered Toradol which she declined. He prefers to take oral pesb-hoh-bbuaert medications at home. Diagnostic Imaging Diagonstic Imaging: CT Plain Films/CT/US/NM/MRI: abdomen, pelvis Comments CT abdomen and pelvis was viewed by me and stat rad report reviewed. There were few mildly prominent right lower quadrant mesenteric lymph nodes, possibly reactive or inflammatory. No evidence of acute appendicitis or other acute abnormality. Departure Impression Primary Impression: Right lower quadrant pain Additional Impression: Mesenteric adenitis Disposition: HOME, SELF-CARE Condition: Stable Departure-Patient Inst. Decision time for Depature: 04:10 Referrals: GLENDY BARNHART (PCP/Family) Primary Care Physician Patient Instructions: Abdominal Pain, Adult ED, Mesenteric Lymphadenitis Add. Discharge Instructions: Start with a clear liquid diet and gradually advance your diet with small quantities of bland food as tolerated. You may take ibuprofen up to 600 mg every 6 hours as needed for pain. Add Tylenol (acetaminophen) up to 1000 mg every 6 hours as needed for additional pain relief. Return to care if you have worsening symptoms despite following these instructions. All discharge instructions reviewed with patient and/or family. Voiced understanding. Copy Copies To 1: [facility]/PIOTR BALLESTEROS MD Feb 20, 2022 04:11
[2022-02-20 04:15] VITALS: BP 156/97
--- NOTE | 2022-02-20 07:02 | Diagnostic Imaging Report ---
PROCEDURE: CT abdomen and pelvis with contrast, rule out appendicitis. TECHNIQUE: Multiple contiguous axial images were obtained through the abdomen and pelvis after the administration of intravenous contrast. All CT scans use one or more of the following dose optimizing techniques: automated exposure control, MA and/or KvP adjustment based on patient size and exam type or iterative reconstruction. INDICATION: Right lower quadrant pain Lung bases are clear. Liver appears normal. There is a small calculus in the gallbladder. Common duct is not dilated. Portal vein is patent. Pancreas is normal. Spleen is not enlarged. Adrenals are normal. Kidneys appear normal. Small bowel is not dilated. The appendix is normal. Urinary bladder is normal. Colon appears normal. There is no intraperitoneal free air or free fluid. There are some scattered mesenteric lymph nodes that could be reactive. IMPRESSION: Questionable reactive mesenteric lymphadenitis. There is cholecystolithiasis. No evidence of acute appendicitis. I agree with preliminary interpretation. Dictated by: Dictated on workstation # [id number]
== END 2022-02-20 04:19 | disposition home or self-care (01) ==
LOC: EDUNIT# 00:53 → ER 00:55
DX: I88.0 Nonspecific mesenteric lymphadenitis (principal); F17.210 Nicotine dependence, cigarettes, uncomplicated
CPT/HCPCS: 36415; 74177; 80053; 81000; 83690; 85025; 86141

== ENCOUNTER 2022-11-15 17:46 | Emergency (ER) | payer MEDICAID ==
[~2022-11-15] VITALS: Ht 172 cm; Wt 104.0 kg
[~2022-11-15 17:46] MED LIST changes: +CARI3CAP; +DEXM10TA5; +LINA72CA; +PRED15SO5
[2022-11-15 17:50] VITALS: BP 144/100
--- NOTE | 2022-11-15 18:16 | ED GI ---
General Chief Complaint: Abdominal/GI Problems Stated Complaint: LEFT UPPPER QUAD PAIN Source of Information: Patient, EMS Exam Limitations: No Limitations History of Present Illness Date Seen by Provider: November 15, 2022 Time Seen by Provider: 18:01 Initial Comments Here with concerns of having a tapeworm. States that he had a bowel movement today and it was quite foul-smelling. Reports that has been backed up for several days so he did MiraLAX and milk of magnesia today and had large bowel movement and it looked like he had worms in it. He is somewhat fixated on his bowels and has been seen for different bowel complaints previously here and apparently at his primary care doctor as well. He does have Hemoccult that he was supposed to send and 2 months ago and did get a sample and brought in today in the Hemoccult bottle. Denies fever or chills. Denies nausea or vomiting. States that he felt like worms or something was moving in his bowels on the left side after taking the meds earlier. He has settled down now. Does have a variety of mental health disorders and is on medications for that. He reports that he does have hypertension but is not on medicine currently for that as his provider has changed and they have not reauthorized the medication. He does arrive by EMS and EMS reports the same with blood pressures in the 140s systolic but otherwise no significant findings in the field any transported without difficulty. Timing/Duration: 1-3 Hours Severity/Quality: Moderate, Other (Movement) Location: LUQ, LLQ Radiation: No Radiation Activities at Onset: None Modifying Factors: Improves With Defecating Associated Symptoms: No Fever/Chills, No Nausea/Vomiting, No Shortness of Air, No Weakness Allergies and Home Medications Allergies Coded Allergies: divalproex sodium (Verified Allergy, Unknown, 06/08/17) promethazine (Verified Allergy, Unknown, 06/08/17) Patient Home Medication List Home Medication List Reviewed: Yes Benztropine Mesylate (Benztropine Mesylate) 2 Mg Tablet, (Reported) Entered as Reported by: PO TELLEZ on 06/08/17 1516 Cariprazine Hydrochloride (Vraylar) 3 Mg Capsule, (Reported) Entered as Reported by: JEANMARIE DOMINGUEZ on 02/20/22 0058 Dexmethylphenidate HCl (Focalin Xr) 30 Mg Cpbp.50.50, (Reported) Entered as Reported by: PO TELLEZ on 06/08/171515 Dexmethylphenidate HCl (Dexmethylphenidate HCl) 10 Mg Tablet, (Reported) Entered as Reported by: JEANMARIE DOMINGUEZ on 02/20/2257 Diphenhydramine HCl (Banophen) 50 Mg Capsule, (Reported) Entered as Reported by: PO TELLEZ on 06/08/171515 Diphenhydramine HCl (Banophen) 25 Mg Capsule, (Reported) Entered as Reported by: PO TELLEZ on 06/08/171515 Fluvoxamine Maleate (Fluvoxamine Maleate ER) 150 Mg Cap.er.24h, (Reported) Entered as Reported by: PO TELLEZ on 06/08/171515 Guanfacine HCl (Guanfacine HCl) 1 Mg Tablet, (Reported) Entered as Reported by: PO TELLEZ on 06/08/171515 Iloperidone (Fanapt) 12 Mg Tablet, (Reported) Entered as Reported by: PO TELLEZ on 06/08/171515 Linaclotide (Linzess) 72 Mcg Capsule, (Reported) Entered as Reported by: JEANMARIE DOMINGUEZ on 02/20/2257 Oxcarbazepine (Oxcarbazepine) 600 Mg Tablet, (Reported) Entered as Reported by: PO TELLEZ on 06/08/171515 Pantoprazole Sodium (Pantoprazole Sodium) 20 Mg Tablet.dr, (Reported) Entered as Reported by: PO TELLEZ on 06/08/171515 Perphenazine (Perphenazine) 8 Mg Tablet, (Reported) Entered as Reported by: PO TELLEZ on 06/08/171515 Prednisolone Sod Phosphate (Prednisolone Sodium Phosphate) 15 Mg/5 Ml Solution, (Reported) Entered as Reported by: JEANMARIE DOMINGUEZ on 02/20/2257 Review of Systems Review of Systems Constitutional: see HPI; No chills, No fever EENTM: No Symptoms Reported Respiratory: No Symptoms Reported Cardiovascular: Denies Chest Pain, Denies Edema Gastrointestinal: See HPI, Abdominal Pain, Constipated Genitourinary: No Symptoms Reported Musculoskeletal: no symptoms reported Psychiatric/Neurological: Anxiety; Denies Weakness Past Ybnqpcn-Bxdfqj-Izhqaa Hx Patient Social History Tobacco Use?: No Smoking Status: Former Smoker Substance use?: No Alcohol Use?: No Pt feels they are or have been: No Immunizations Up To Date First/Initial COVID19 Vaccinat: yes Second COVID19 Vaccination Natanael: yes Third COVID19 Vaccination Date: yes Past Medical History Surgery/Hospitalization HX: dental, t/a, mood disorder, adhd, autism, seizures, htn Surgeries: Yes (DENTAL, hydrocele) Adenoidectomy, Tonsillectomy Respiratory: No Cardiac: Yes Hypertension Neurological: Yes (Autism) Seizure Disorder Genitourinary: No Gastrointestinal: No Musculoskeletal: No Endocrine: No HEENT: No Cancer: No Psychosocial: Yes (AUTISM, MOOD DISORDER) ADD/ADHD, Anxiety, Bipolar, Violent Behavior Integumentary: No Blood Disorders: No Adverse Reaction/Blood Tranf: No Family Medical History Reviewed Nursing Family Hx No Pertinent Family Hx Physical Exam Vital Signs Vital Signs - First Documented 11/15/22 17:50 Temp 37.0 Pulse 86 Resp 20 B/P (MAP) 144/100 (115) Pulse Ox 99 O2 Delivery Room Air Capillary Refill : Height/Weight/BMI Height: 5'7.00" Weight: 250lbs. oz. 113.858514iv; 38.00 BMI Method:Stated General Appearance: WD/WN, no apparent distress HEENT: PERRL/EOMI, pharynx normal Neck: full range of motion, supple Respiratory: lungs clear, normal breath sounds Cardiovascular: regular rate, rhythm, no murmur Gastrointestinal: normal bowel sounds, non tender, soft, no pulsatile mass Extremities: non-tender, normal inspection Back: normal inspection, no CVA tenderness, no vertebral tenderness Neurologic/Psychiatric: alert, oriented x 3 Skin: normal color, warm/dry Progress/Results/Core Measures Results/Orders Lab Results Laboratory Tests Test 11/15/22 18:36 Range/Units White Blood Count 11.0 4.3-11.0 10^3/uL Red Blood Count 5.82 H 4.30-5.52 10^6/uL Hemoglobin 15.3 13.3-17.7 g/dL Hematocrit 46 40-54 % Mean Corpuscular Volume 79 L 80-99 fL Mean Corpuscular Hemoglobin 26 25-34 pg Mean Corpuscular Hemoglobin Concent 33 32-36 g/dL Red Cell Distribution Width 14.1 10.0-14.5 % Platelet Count 279 130-400 10^3/uL Mean Platelet Volume 11.5 9.0-12.2 fL Immature Granulocyte % (Auto) 0 % Neutrophils (%) (Auto) 62 42-75 % Lymphocytes (%) (Auto) 28 12-44 % Monocytes (%) (Auto) 7 0-12 % Eosinophils (%) (Auto) 3 0-10 % Basophils (%) (Auto) 1 0-10 % Neutrophils # (Auto) 6.8 1.8-7.8 10^3/uL Lymphocytes # (Auto) 3.1 1.0-4.0 10^3/uL Monocytes # (Auto) 0.7 0.0-1.0 10^3/uL Eosinophils # (Auto) 0.3 0.0-0.3 10^3/uL Basophils # (Auto) 0.1 0.0-0.1 10^3/uL Immature Granulocyte # (Auto) 0.0 0.0-0.1 10^3/uL Sodium Level 133 L 135-145 MMOL/L Potassium Level 4.2 3.6-5.0 MMOL/L Chloride Level 95 L 98-107 MMOL/L Carbon Dioxide Level 24 21-32 MMOL/L Anion Gap 14 5-14 MMOL/L Blood Urea Nitrogen 18 7-18 MG/DL Creatinine 1.06 0.60-1.30 MG/DL Estimat Glomerular Filtration Rate 101 BUN/Creatinine Ratio 17 Glucose Level 95 70-105 MG/DL Calcium Level 10.0 8.5-10.1 MG/DL Corrected Calcium 9.6 8.5-10.1 MG/DL Total Bilirubin 0.2 0.1-1.0 MG/DL Aspartate Amino Transf (AST/SGOT) 32 5-34 U/L Alanine Aminotransferase (ALT/SGPT) 75 H 0-55 U/L Alkaline Phosphatase 91 40-136 U/L Total Protein 7.7 6.4-8.2 GM/DL Albumin 4.5 3.2-4.5 GM/DL My Orders Orders - ANA SHEPHERD MD Cbc With Automated Diff (11/15/22 18:15) Comprehensive Metabolic Panel (11/15/22 18:15) Stool Culture (11/15/22 18:15) Parasite Complete Exam Stool (11/15/22 18:15) Ed Iv/Invasive Line Start (11/15/22 18:15) Fecal Occult Bedside (11/15/22 18:16) Acute Abd Series (11/15/22 18:52) Ns Iv 500 Ml (Sodium Chloride 0.9%) (11/15/22 19:15) Medications Given in ED Current Medications Medications Dose Ordered Sig/Wali Route Start Time Stop Time Status Last Admin Dose Admin Sodium Chloride 500 ml @ 0 mls/hr Q0M ONCE IV 11/15/22 19:15 11/15/22 19:16 DC 11/15/22 19:18 0 MLS/HR Vital Signs/I&O 11/15/22 17:50 Temp 37.0 Pulse 86 Resp 20 B/P (MAP) 144/100 (115) Pulse Ox 99 O2 Delivery Room Air Progress Progress Note : Progress Note Seen and evaluated. IV, labs including CBC and CMP ordered. We will get acute abdominal series. I have ordered stool cultures and O&P stool evaluation. We will get Hemoccult as well. Monitor patient. Differential diagnosis includes constipation, electrolyte abnormality, bowel disorder including parasitic infection. 1857: CBC reviewed and no significant abnormalities noted. 1950: CMP reviewed and has slightly elevated ALT on liver function studies and slightly low sodium and chloride on chemistries. Normal saline 500 mL bolus ordered. I have reviewed acute abdominal series and see no obvious signs of obstruction on my interpretation. Stool has been sent for cultures and O&P. The Hemoccult was trace positive after 5 minutes but patient has normal hemoglobin. He will need follow-up with primary care but no indication for admission currently. I did discuss with patient. He has appointment at [facility] next Friday. He will keep that appointment. I will send a copy of the chart to them. He may need surgical follow-up for the trace blood although this may be related to irritation from laxative use and constipation. Discharged home with return precautions. Patient verbalized understanding of instructions and agreement with plan. Diagnostic Imaging Diagonstic Imaging: Xray Plain Films/CT/US/NM/MRI: chest, abdomen Comments [facility]. [place], [place] NAME: DONALD MENDEZ [facility] REC#: [id number] PT STATUS: REG ER : 2000 PHYSICIAN: ANA SHEPHERD MD ADMIT DATE: 11/15/22/ER Signed Date of Exam:11/15/22 ACUTE ABD SERIES INDICATION: Abdominal pain. COMPARISON: CT abdomen and pelvis 02/20/2022. FINDINGS: Lungs are clear. There is no pneumonia or edema. There is no effusion. There is no pneumothorax. Heart size is normal. Pulmonary vascularity is normal. There are no findings of abnormal bowel dilation evident. There may be a few air-fluid levels within the right colon. There is no unexpected abdominal calcification. There is no evidence of free air. There is no acute osseous abnormality. IMPRESSION: 1. Lungs are clear without acute cardiopulmonary process. 2. No bowel dilation to suggest obstruction. There may be a few air-fluid levels within the right colon. This could be seen in the setting of an enteritis. There is no free air. Dictated by: Dictated on workstation # [id number] Dict: 11/15/221918 Trans: 11/15/221933 [facility] [id number] Interpreted by: WILL STANTON MD Electronically signed by: WILL STANTON MD 11/15/221933 Reviewed: Reviewed by Me Departure Impression Primary Impression: Abdominal pain Qualified Codes: R10.84 - Generalized abdominal pain Additional Impressions: Guaiac positive stools Constipation Qualified Codes: K59.00 - Constipation, unspecified Disposition: 01 HOME, SELF-CARE Condition: Improved Departure-Patient Inst. Decision time for Depature: 21:14 Referrals: FENG BONILLA DAVID M PA (PCP) Primary Care Physician Patient Instructions: Constipation, Adult (DC), Bloody Stools, Adult ED, Severe Abdominal Pain, Adult (DC) Add. Discharge Instructions: All discharge instructions reviewed with patient and/or family. Voiced understanding. Follow-up with clinic next Friday as scheduled. Keep that appointment and discuss today's visit. A copy of the chart was sent to the clinic so they can see labs and radiology results. He did have trace positive on your stool for blood. Stool cultures are pending. You will need to discuss this with your doctor and or follow-up with the surgeon listed or of your choosing for further evaluation of the blood in your stool. Return for worse pain, fever, vomiting, weakness, breathing problems or other concerns as needed. Copy Copies To 1: SALMA MONTES TIMOTHY D MD November 15, 2022 18:16
[2022-11-15 18:42] LABS: BASOPHILS # (AUTO) 0.1 10^3/uL (0.0-0.1); BASOPHILS % (AUTO) 1 % (0-10); EOSINOPHILS # (AUTO) 0.3 10^3/uL (0.0-0.3); EOSINOPHILS % (AUTO) 3 % (0-10); HEMATOCRIT 46 % (40-54); HEMOGLOBIN 15.3 g/dL (13.3-17.7); LYMPHOCYTES # (AUTO) 3.1 10^3/uL (1.0-4.0); LYMPHOCYTES % (AUTO) 28 % (12-44); MEAN CORPUSCULAR HEMOGLOBIN 26 pg (25-34); MEAN CORPUSCULAR HGB CONC 33 g/dL (32-36); MEAN CORPUSCULAR VOLUME 79 fL (80-99); MEAN PLATELET VOLUME 11.5 fL (9.0-12.2); MONOCYTES # (AUTO) 0.7 10^3/uL (0.0-1.0); MONOCYTES % (AUTO) 7 % (0-12); NEUTROPHILS # (AUTO) 6.8 10^3/uL (1.8-7.8); NEUTROPHILS % (AUTO) 62 % (42-75); PLATELET COUNT 279 10^3/uL (130-400)
[2022-11-15 18:52] LABS: ALBUMIN 4.5 GM/DL (3.2-4.5)
[2022-11-15 18:53] LABS: POTASSIUM 4.2 MMOL/L (3.6-5.0)
[2022-11-15 18:55] LABS: TOTAL PROTEIN 7.7 GM/DL (6.4-8.2)
[2022-11-15 18:57] LABS: BILIRUBIN,TOTAL 0.2 MG/DL (0.1-1.0)
[2022-11-15 18:58] LABS: CREATININE SERUM 1.06 MG/DL (0.60-1.30)
[2022-11-15] MEDS ORDERED: NS IV 500 ML 500 ML IV ONE (19:15)
--- NOTE | 2022-11-15 19:24 | Diagnostic Imaging Report ---
INDICATION: Abdominal pain. COMPARISON: CT abdomen and pelvis 02/20/2022. FINDINGS: Lungs are clear. There is no pneumonia or edema. There is no effusion. There is no pneumothorax. Heart size is normal. Pulmonary vascularity is normal. There are no findings of abnormal bowel dilation evident. There may be a few air-fluid levels within the right colon. There is no unexpected abdominal calcification. There is no evidence of free air. There is no acute osseous abnormality. IMPRESSION: 1. Lungs are clear without acute cardiopulmonary process. 2. No bowel dilation to suggest obstruction. There may be a few air-fluid levels within the right colon. This could be seen in the setting of an enteritis. There is no free air. Dictated by: Dictated on workstation # [id number]
== END 2022-11-15 21:25 | disposition home or self-care (01) ==
LOC: EDUNIT# 17:46 → ER 17:48
DX: K59.00 Constipation, unspecified (principal); R19.5 Other fecal abnormalities; Z87.891 Personal history of nicotine dependence
CPT/HCPCS: 36415; 74022; 80053; 82274; 85025; 87015; 87045; 87046; 87177; 87899

== ENCOUNTER 2022-12-11 05:54 | Outpatient (CLI) | payer MEDICAID ==
[~2022-12-11] VITALS: Ht 177.8 cm; Wt 125.2 kg
[~2022-12-11 05:54] MED LIST changes: +BENZ2TAB; -BENZ2TAB6; -OXCA600T10; +OXCA600T10 PO; -[UNRECOGNIZED DRUG - CODE]; +[UNRECOGNIZED DRUG - CODE] PO
[2022-12-11] MEDS ORDERED: METH54TA10 PO (10:47)
[2022-12-11] MEDS ORDERED: CARI4.5C PO (10:47)
[2022-12-11] MEDS ORDERED: MONT-40 PO (10:47)
[2022-12-11] MEDS ORDERED: LISI10TA25 PO (10:47)
[2022-12-11] MEDS ORDERED: PANT40TA52 PO (10:47)
[2022-12-11] MEDS ORDERED: CETI10TA17 PO (10:54)
[2022-12-11] MEDS ORDERED: DEXM10TA5 PO (10:54)
[2022-12-11] MEDS ORDERED: LINA72CA PO (10:54)
[2022-12-11] MEDS ORDERED: DEXM40CP PO (10:54)
[2022-12-11] MEDS ORDERED: ZALE10CA PO (10:54)
[2022-12-11] MEDS ORDERED: GUAN1TAB21 PO (10:54)
[2022-12-11] MEDS ORDERED: MINO100T10 PO (10:54)
== END 2022-12-11 10:57 | disposition home or self-care (01) ==
LOC: PREOP 05:54
PROVIDERS: ATTEND Surgery
DX: Z01.818 Encounter for other preprocedural examination (principal)

== ENCOUNTER 2022-12-23 07:43 | Day surgery (SDC) | payer MEDICAID ==
[~2022-12-23] VITALS: Ht 177.8 cm; Wt 125.2 kg
[~2022-12-23 07:43] MED LIST changes: +CARI4.5C PO; +CETI10TA17 PO; +DEXM10TA5 PO; +DEXM40CP PO; +GUAN1TAB21 PO; +LINA72CA PO; +LISI10TA25 PO; +METH54TA10 PO; +MINO100T10 PO; +MONT-40 PO; +PANT40TA52 PO; +ZALE10CA PO
[2022-12-23] MEDS ORDERED: LACTATED RINGERS 1,000 ML IV STA (07:58)
[2022-12-23] MEDS ORDERED: HURRICAINE EXT TUBE (BENZOCAINE) XX PRN (08:00)
[2022-12-23 08:16] VITALS: BP 159/95
--- NOTE | 2022-12-23 08:59 | Progress Note-Pre Operative ---
Pre-Operative Progress Note Date of Available H&P: November 28, 2022 Date H&P Reviewed: Dec 23, 2022 Time H&P Reviewed: 08:56 History & Physical: H&P Reviewed, Patient Examed, No changes noted Pre-Operative Diagnosis: Rectal bleed, GERD, Dysphagia FENG BONILLA DO Dec 23, 2022 08:59
[2022-12-23] MEDS ORDERED: PROPOFOL INJECTION 50 ML IV ONE ×2 (09:41→09:57)
--- NOTE | 2022-12-23 10:13 | Anesthesia-General Post-Op ---
MAC Patient Condition Mental Status/LOC: Same as Preop Cardiovascular: Satisfactory Nausea/Vomiting: Absent Respiratory: Satisfactory Pain: Controlled Complications: Absent Post Op Complications Complications None Follow Up Care/Instructions Patient Instructions None needed. Anesthesiology Discharge Order Discharge Order Patient is doing well, no complaints, stable vital signs, no apparent adverse anesthesia problems. No complications reported per nursing. BERNARDO CORNEJO CRNA Dec 23, 2022 10:13
[2022-12-23 10:15] VITALS: BP 99/57
[2022-12-23 10:20] VITALS: BP 101/59
[2022-12-23 10:51] VITALS: BP 101/59
--- NOTE | 2022-12-23 11:11 | Progress Note-Post Operative ---
Post-Operative Progess Note Surgeon (s)/Leave Coordinator (s) Surgeon FENG BONILLA DO Leave Coordinator: none Pre-Operative Diagnosis Rectal bleed, GERD, Dysphagia Post-Operative Diagnosis Gastritis Small sliding hiatal hernia Proctitis Int hemorrhoids Procedure & Operative Findings Date of Procedure 12/23/22 Procedure Performed/Findings EGD with biopsy Colonoscopy with biopsy PROCEDURE NOTE: After informed consent was obtained, the patient was brought to the endoscopy suite, placed in bed in left lateral decubitus position. He was administered IV sedation by the CAR SHUNTER who then monitored vitals the entire time, heart rate, blood pressure and pulse ox and the scope was inserted down the mouth through the esophagus into the stomach. On the way down, noted some mild esophagitis, took a picture, pushed into the stomach, pushed past the antrum into the duodenum. Duodenum looked good. Pulled back and did a biopsy of antrum and the body of the stomach, then retroflexed the scope, saw a small sliding hiatal hernia, took a picture of this and then pulled the scope into the GE junction and then did a biopsy of the GE junction. Pushed the scope back into the stomach, suctioned all the air out of the stomach. At this point pulled the scope up the esophagus and out the mouth. Switched camera, switched gloves, went down below, started the colonoscopy. Pushed all the way to about 150 cm and pushed into the cecum, took a picture of appendiceal orifice and noted the ileocecal valve. Then slowly withdrew the scope insufflating to look circumferentially at the batista starting in the cecum, up the ascending colon to the hepatic flexure, then down the transverse colon, splenic flexure, into the descending colon down in the sigmoid and then into the rectal vault and saw some proctitis, did a biopsy. Finally retroflexed the scope and took a picture of the internal hemorrhoids. The patient tolerated the procedure and he recovered in the endoscopy suite. Recommended for repeat colonoscopy in 10 years Anesthesia Type IV sedation by CAR SHUNTER Estimated Blood Loss Estimated blood loss (mL): scant Specimens/Packing Specimens Removed antral bx body of stomach bx GE jxn bx rectal bx FENG BONILLA DO Dec 23, 2022 11:10
--- NOTE | 2022-12-23 11:15 | Endoscopy Discharge Instruct ---
Endo Procedure/Findings Findings 1.: Gastritis 2.: Hiatal Hernia 3.: Colitis 4.: Internal Hemorrhoids Discharge Instructions - Activity: You might feel a little sleepy until tomorrow. This is due to the medicine you received to relax you. Until tomorrow, you should: NOT drive a car, operate machinery or power tools. NOT drink any alcoholic beverages. NOT make any important decisions or sign importortant papers. Do not return to work until tomorrow, unless otherwise instructed. Resume previ ous activities tomorrow. Diet: Start by taking liquids. If you tolerate liquids, advance to solid food. 1.: EGD in 3 years 2.: Colonscopy in 10 years Notify Physician - If you experience excessive bleeding, unusual abdominal pain, fever, or chest pain, contact your doctor immediately. Follow-Up: Other Follow up in my office in one week FENG BONILLA DO Dec 23, 2022 11:15
== END 2022-12-23 11:27 | disposition home or self-care (01) ==
LOC: ENDO 07:43
PROVIDERS: ATTEND Surgery
DX: K29.70 Gastritis, unspecified, without bleeding (principal); K44.9 Diaphragmatic hernia without obstruction or gangrene; K62.89 Other specified diseases of anus and rectum; K64.8 Other hemorrhoids; K21.00 Gastro-esophageal reflux disease with esophagitis, without bleeding; K80.20 Calculus of gallbladder without cholecystitis without obstruction; K42.9 Umbilical hernia without obstruction or gangrene; E66.9 Obesity, unspecified; Z68.39 Body mass index [BMI] 39.0-39.9, adult